=== PATIENT | male | born 1965 | race Caucasian/White ===

== ENCOUNTER 2016-02-29 20:01 | Emergency (ER) | payer SELFPAY ==
[~2016-02-29] VITALS: Ht 188 cm; Wt 136.1 kg
[~2016-02-29 20:01] MED LIST: DOCU-143 PO; LISI10TA2 PO; MORPHINE; POLY119P5 PO; SILD100T PO; TEST200V21 IM
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
[2016-02-29] MEDS ORDERED: TETANUS,DIPTH,PERTUSS P/F (BOOSTRIX) 0.5 ML VIAL IM ONE (20:15)
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
[2016-02-29 20:27] LABS: BASOPHILS % (AUTO) 0 % (0-10); EOSINOPHILS # (AUTO) 0.3 10^3/uL (0.0-0.3); EOSINOPHILS % (AUTO) 3 % (0-10); LYMPHOCYTES # (AUTO) 3.4 X 10^3 (1.0-4.0); LYMPHOCYTES % (AUTO) 29 % (12-44); MEAN CORPUSCULAR HEMOGLOBIN 30 PG (25-34); MEAN CORPUSCULAR HGB CONC 35 G/DL (32-36); MEAN CORPUSCULAR VOLUME 86 FL (80-99); MEAN PLATELET VOLUME 8.9 FL (7.4-10.4); MONOCYTES # (AUTO) 0.7 X 10^3 (0.0-1.0); MONOCYTES % (AUTO) 6 % (0-12); NEUTROPHILS # (AUTO) 7.4 X 10^3 (1.8-7.8); NEUTROPHILS % (AUTO) 63 % (42-75); PLATELET COUNT 331 10^3/uL (130-400); RED BLOOD COUNT 4.83 10^6/uL (4.35-5.85); RED CELL DISTRIBUTION WIDTH 13.9 % (10.0-14.5); WHITE BLOOD COUNT 11.8 10^3/uL (4.3-11.0)
[2016-02-29] MEDS ORDERED: GABA-488 PO (20:27)
[2016-02-29] MEDS ORDERED: METF500T8 PO (20:27)
[2016-02-29] MEDS ORDERED: DICL75TA2 PO (20:27)
[2016-02-29 20:37] LABS: INR 0.9 (0.8-1.4); PROTHROMBIN TIME PATIENT 12.1 SEC (12.2-14.7)
[2016-02-29 20:46] LABS: ALANINE AMINOTRANSFERASE 31 U/L (0-55); ALBUMIN 4.1 G/DL (3.2-4.5); AMYLASE 39 U/L (25-125); ANION GAP 11 MMOL/L (5-14); ASPARTATE AMINO TRANSFERASE 18 U/L (5-34); BILIRUBIN,TOTAL 0.2 MG/DL (0.1-1.0); BLOOD UREA NITROGEN 18 MG/DL (7-18); BUN/CREATININE RATIO 17; CALCIUM 8.9 MG/DL (8.5-10.1); CARBON DIOXIDE 22 MMOL/L (21-32); CHLORIDE 107 MMOL/L (98-107); CREATININE SERUM 1.04 MG/DL (0.60-1.30); GFR ESTIMATED > 60; GLUCOSE 104 MG/DL (70-105); LIPASE 27 U/L (8-78); POTASSIUM 4.1 MMOL/L (3.6-5.0); SODIUM 140 MMOL/L (135-145); TOTAL PROTEIN 6.7 G/DL (6.4-8.2)
[2016-02-29 20:49] LABS: ALCOHOL < 10 MG/DL (<10)
[2016-02-29 20:52] LABS: TROPONIN I < 0.30 NG/ML (<0.30)
[2016-02-29] MEDS ORDERED: IOHEXOL 350 MG/ML 100 ML (OMNIPAQUE 350) VIAL IV ONE (21:00)
[2016-02-29] MEDS ORDERED: NS 100 ML (IVPB) BAG IV ONE (21:00)
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
[2016-02-29 21:18] LABS: BILIRUBIN,URINE NEGATIVE (NEGATIVE); KETONES,URINE NEGATIVE (NEGATIVE); LEUKOCYTE ESTERASE ,URINE 1+ (NEGATIVE); NITRITE,URINE NEGATIVE (NEGATIVE); PH,URINE 5 (5-9); PROTEIN,URINE 1+ (NEGATIVE); UROBILINOGEN,URINE NORMAL (NORMAL)
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
[2016-02-29] MEDS ORDERED: LIDOCAINE/EPI 1%-1:100,000 (XYLOCAINE) 20ML ONE (22:01)
[2016-02-29] MEDS ORDERED: RX-TRIMETH/SULFA. 160-800 MG (BACTRIM DS) TAB PPK#2 PO STA ×2 (22:07→22:21)
[2016-02-29] MEDS ORDERED: RX-NAPROXEN (NAPROSYN) 250 MG TAB PPK#4 PO STA (22:21)
[2016-02-29] MEDS ORDERED: SULF1TAB35 PO (22:24)
[2016-02-29] MEDS ORDERED: NAPR500T3 PO (22:24)
[2016-02-29 22:40] VITALS: BP 128/82
== END 2016-02-29 22:40 | disposition home or self-care (01) ==
LOC: EDUNIT# 20:01 → ER 20:03
DX: S21.111A Laceration without foreign body of right front wall of thorax without penetration into thoracic cavity, initial encounter (principal); Z23 Encounter for immunization; R91.8 Other nonspecific abnormal finding of lung field; E07.89 Other specified disorders of thyroid; J44.9 Chronic obstructive pulmonary disease, unspecified; I10 Essential (primary) hypertension; E11.9 Type 2 diabetes mellitus without complications; F17.220 Nicotine dependence, chewing tobacco, uncomplicated; Z79.84 Long term (current) use of oral hypoglycemic drugs; Z87.891 Personal history of nicotine dependence; Z79.899 Other long term (current) drug therapy; W26.0XXA Contact with knife, initial encounter; Y99.8 Other external cause status
CPT/HCPCS: 36415; 71010; 71260; 74177; 80053; 80306; 80320; 81000; 82150; 83690; 84484; 85025; 85610; 85730; 90471; 90715; 93005

== ENCOUNTER 2017-05-20 09:29 | Observation (INO) | payer MEDICAID, OTHER ==
[~2017-05-20] VITALS: Ht 190.5 cm; Wt 119.7 kg
[~2017-05-20 09:29] MED LIST changes: +DICL75TA2 PO; +GABA-488 PO; +METF500T8 PO; +NAPR-915 PO; +SULF1TAB35 PO
[2017-05-20] MEDS ORDERED: NS IV 1000 ML 1,000 ML IV ONE (09:34)
[2017-05-20 09:40] LABS: BASOPHILS % (AUTO) 0 % (0-10); EOSINOPHILS # (AUTO) 0.2 10^3/uL (0.0-0.3); EOSINOPHILS % (AUTO) 3 % (0-10); HEMATOCRIT 47 % (40-54); HEMOGLOBIN 16.3 G/DL (13.3-17.7); LYMPHOCYTES # (AUTO) 2.6 X 10^3 (1.0-4.0); LYMPHOCYTES % (AUTO) 28 % (12-44); MEAN CORPUSCULAR HEMOGLOBIN 29 PG (25-34); MEAN CORPUSCULAR HGB CONC 35 G/DL (32-36); MEAN CORPUSCULAR VOLUME 82 FL (80-99); MEAN PLATELET VOLUME 9.1 FL (7.4-10.4); MONOCYTES # (AUTO) 0.7 X 10^3 (0.0-1.0); MONOCYTES % (AUTO) 7 % (0-12); NEUTROPHILS # (AUTO) 5.7 X 10^3 (1.8-7.8); NEUTROPHILS % (AUTO) 62 % (42-75); PLATELET COUNT 293 10^3/uL (130-400); RED CELL DISTRIBUTION WIDTH 14.1 % (10.0-14.5); WHITE BLOOD COUNT 9.2 10^3/uL (4.3-11.0)
[2017-05-20] MEDS ORDERED: ASPIRIN 81 MG CHEW (CHILDREN'S ASA) PO ONE (09:45)
[2017-05-20 09:50] LABS: INR 0.9 (0.8-1.4)
[2017-05-20 09:58] LABS: ALANINE AMINOTRANSFERASE 29 U/L (0-55); ALBUMIN 4.3 GM/DL (3.2-4.5); ALKALINE PHOSPHATASE 63 U/L (40-136); BILIRUBIN,TOTAL 0.5 MG/DL (0.1-1.0); BUN/CREATININE RATIO 15; CARBON DIOXIDE 23 MMOL/L (21-32); CHLORIDE 107 MMOL/L (98-107); CREATININE SERUM 1.01 MG/DL (0.60-1.30); GFR ESTIMATED > 60; GLUCOSE 95 MG/DL (70-105); POTASSIUM 4.2 MMOL/L (3.6-5.0); SODIUM 140 MMOL/L (135-145); TOTAL PROTEIN 7.2 GM/DL (6.4-8.2)
[2017-05-20 10:07] LABS: MYOGLOBIN SERUM 54.6 NG/ML (10.0-92.0)
--- NOTE | 2017-05-20 10:28 | Diagnostic Imaging Report ---
PATIENT HISTORY: Chest pain. TECHNIQUE: Single frontal view of the chest. COMPARISON: 02/29/2016. FINDINGS: The lung volumes are normal. No focal consolidation is seen. No large pleural effusion or pneumothorax is seen. The cardiomediastinal silhouette is normal in size and contour. No acute osseous abnormality is seen. IMPRESSION: No acute pulmonary abnormality seen. Dictated by: Dictated on workstation # [id number]
--- NOTE | 2017-05-20 10:46 | ED Chest Pain ---
General Chief Complaint: Cardiac/General Problems Stated Complaint: CP Nursing Triage Note: PT BROGHT TO ED VIA EMS ACCOMPANIED BY [employer]. PT STATES HE AWOKE THIS MORNING AT APPROXIMATELY 0800 WITH SUBSTERNAL CHEST PAIN. PT STATES HE HAD AN ACHE RADIATING DOWN BOTH SHOULDERS. PT ALSO COMPLAINS OF PAIN UNDER RIGHT BREAST AREA RATED AT 2/10. PT DENIES HX OF HEART PROBLEMS OR CHEST PAIN. Nursing Sepsis Screen: No Definite Risk Source: patient Exam Limitations: no limitations (HARMAN TRENT MD) History of Present Illness Date Seen by Provider: May 20, 2017 Time Seen by Provider: 09:30 Initial Comments Patient here by EMS with report of chest pain that started about 830 and woke him up. EMS arrived at the assisted facility where he is being held and found him to be in SVT with rate of 180. In route to the hospital, patient had spontaneous resolution of SVT. Complained of chest pain that is low and lateral bilateral and this still continues. States that is very mild. Denies nausea, vomiting, diaphoresis or weakness. Timing/Duration: 1 hour Severity/Quality: moderate Location: central Radiation: no radiation Activities at Onset: none ASA po STEAM LOCOMOTIVE FIRER/FIREMAN: No NTG SL STEAM LOCOMOTIVE FIRER/FIREMAN: No Associated Symptoms: No abdominal pain, No back pain, No dizziness, No fatigue , No fever/chills, No nausea/vomiting, No shortness of breath, No weakness ( HARMAN TRENT MD) Allergies and Home Medications Allergies Coded Allergies: NKANo Known Allergies (Unverified Allergy, Mild, 04/27/09) Home Medications Diclofenac Sodium 75 Mg Tablet.dr, 75 MG PO DAILY, (Reported) Gabapentin 300 Mg Capsule, 300 MG PO TID, (Reported) Lisinopril 10 Mg Tablet, 10 MG PO DAILY, (Reported) Metformin HCl 500 Mg Tab.er.24h, 1,000 MG PO BID, (Reported) Naproxen 500 Mg Tablet, 500 MG PO BID Prescribed by: JANNETTE HARDY on 02/29/162223 Sildenafil Citrate 100 Mg Tablet, 100 MG PO for OTHER, (Reported) Sulfamethoxazole/Trimethoprim 1 Each Tablet, 1 EACH PO BID Prescribed by: JANNETTE HARDY on 02/29/162223 Testosterone Cypionate 200 Mg/1 Ml Vial, 200 MG IM MONTHLY, (Reported) Patient Home Medication List Home Medication List Reviewed: Yes (HARMAN TRENT MD) Review of Systems Constitutional: see HPI; No chills, No fever EENTM: No Symptoms Reported Respiratory: No Symptoms Reported Cardiovascular: See HPI, Chest Pain, Irregular Heart Rate Gastrointestinal: No Symptoms Reported; Denies Nausea, Denies Vomiting Genitourinary: No Symptoms Reported Musculoskeletal: no symptoms reported (HARMAN TRENT MD) All Other Systems Reviewed Negative Unless Noted: Yes (HARMAN TRENT MD) Past Imzslvj-Wlyffv-Lpwxja Hx Past Med/Social Hx: Reviewed Nursing Past Med/Soc Hx (HARMAN TRENT MD) Patient Social History Alcohol Use: Rarely Uses Recreational Drug Use: Yes (METH PAST, MARIJUANA) Smoking Status: Current Everyday Smoker Type Used: Cigarettes, Smokeless Tobacco Recent Foreign Travel: No Contact w/Someone Who Travel: No Recent Infectious Disease Expo: No Recent Hopitalizations: No Physical Abuse: No Sexual Abuse: No (HARMAN TRENT MD) Immunizations Up To Date Tetanus Booster (TDap): More than 5yrs (HARMAN TRENT MD) Seasonal Allergies Seasonal Allergies: No (HARMAN TRENT MD) Past Medical History Surgeries: Yes Appendectomy, Tonsillectomy Respiratory: Yes (BEGINNING OF COPD/ ASTHMA CHILD) Asthma, COPD Cardiac: Yes High Cholesterol, Hypertension Neurological: Yes (NEUROPATHY IN FEET) Neuropathy Gastrointestinal: No Musculoskeletal: Yes (CHRONIC BACK PAIN / "JAW PAIN AND POPPING") Chronic Back Pain Endocrine: Yes (05/19/17 PT STATES "PREDIABETIC") Diabetes, Insulin dep Tonsilitis Cancer: No Psychosocial: Yes Anxiety, Depression Nursing Suicide Risk Score: 0 Integumentary: No Blood Disorders: No (HARMAN TRENT MD) Family Medical History Reviewed Nursing Family Hx (HARMAN TRENT MD) No Pertinent Family Hx (HARMAN TRENT MD) Physical Exam Vital Signs Vital Signs - First Documented 05/20/17 09:30 Pulse 88 Resp 16 B/P (MAP) 146/95 (112) O2 Delivery Room Air (ALEXUS TRISTAN MD) Vital Signs Capillary Refill : Less Than 3 Seconds (HARMAN TRENT MD) General Appearance: No Apparent Distress, WD/WN HEENT: PERRL/EOMI, Pharynx Normal Neck: Non Tender, Supple Respiratory: Lungs Clear, Normal Breath Sounds Cardiovascular: Regular Rate, Rhythm, No Murmur Gastrointestinal: Non Tender, Soft Extremity: Normal Range of Motion, Non Tender Neurologic/Psychiatric: Alert, Oriented x3 Skin: Normal Color, Warm/Dry (HARMAN TRENT MD) Progress/Results/Core Measures Lab Results Laboratory Tests Test 05/20/17 09:30 Range/Units White Blood Count 9.2 4.3-11.0 10^3/uL Red Blood Count 5.70 4.35-5.85 10^6/uL Hemoglobin 16.3 13.3-17.7 G/DL Hematocrit 47 40-54 % Mean Corpuscular Volume 82 80-99 FL Mean Corpuscular Hemoglobin 29 25-34 PG Mean Corpuscular Hemoglobin Concent 35 32-36 G/DL Red Cell Distribution Width 14.1 10.0-14.5 % Platelet Count 293 130-400 10^3/uL Mean Platelet Volume 9.1 7.4-10.4 FL Neutrophils (%) (Auto) 62 42-75 % Lymphocytes (%) (Auto) 28 12-44 % Monocytes (%) (Auto) 7 0-12 % Eosinophils (%) (Auto) 3 0-10 % Basophils (%) (Auto) 0 0-10 % Neutrophils # (Auto) 5.7 1.8-7.8 X 10^3 Lymphocytes # (Auto) 2.6 1.0-4.0 X 10^3 Monocytes # (Auto) 0.7 0.0-1.0 X 10^3 Eosinophils # (Auto) 0.2 0.0-0.3 10^3/uL Basophils # (Auto) 0.0 0.0-0.1 10^3/uL Prothrombin Time 12.0 L 12.2-14.7 SEC INR Comment 0.9 0.8-1.4 Activated Partial Thromboplast Time 27 24-35 SEC D-Dimer 0.81 H 0.00-0.49 UG/ML Sodium Level 140 135-145 MMOL/L Potassium Level 4.2 3.6-5.0 MMOL/L Chloride Level 107 98-107 MMOL/L Carbon Dioxide Level 23 21-32 MMOL/L Anion Gap 10 5-14 MMOL/L Blood Urea Nitrogen 15 7-18 MG/DL Creatinine 1.01 0.60-1.30 MG/DL Estimat Glomerular Filtration Rate > 60 BUN/Creatinine Ratio 15 Glucose Level 95 70-105 MG/DL Calcium Level 10.0 8.5-10.1 MG/DL Magnesium Level 2.0 1.8-2.4 MG/DL Total Bilirubin 0.5 0.1-1.0 MG/DL Aspartate Amino Transf (AST/SGOT) 17 5-34 U/L Alanine Aminotransferase (ALT/SGPT) 29 0-55 U/L Alkaline Phosphatase 63 40-136 U/L Myoglobin 54.6 10.0-92.0 NG/ML Troponin I < 0.30 <0.30 NG/ML Total Protein 7.2 6.4-8.2 GM/DL Albumin 4.3 3.2-4.5 GM/DL (ALEXUS TRISTAN MD) Medications Given in ED Current Medications Medications Dose Ordered Sig/Reyna Route Start Time Stop Time Status Last Admin Dose Admin Aspirin 324 mg ONCE ONCE PO 05/20/17 09:45 05/20/17 09:46 DC 05/20/17 09:48 324 MG Iohexol 125 ml ONCE ONCE IV 05/20/17 11:00 05/20/17 11:01 DC 05/20/17 10:57 125 ML Sodium Chloride 250 ml ONCE ONCE IV 05/20/17 11:00 05/20/17 11:01 DC 05/20/17 10:57 80 ML Sodium Chloride 1,000 ml @ 0 mls/hr Q0M ONCE IV 05/20/17 09:34 05/20/17 09:36 DC 05/20/17 09:48 1,000 MLS/HR (ALEXUS TRISTAN MD) Vital Signs/I&O 05/20/17 09:30 Pulse 88 Resp 16 B/P (MAP) 146/95 (112) O2 Delivery Room Air (ALEXUS TRISTAN MD) Blood Pressure Mean: 112 Progress Note : Progress Note Seen and evaluated. IV, labs, chest x-ray and EKG ordered. ASA 324 mg by mouth ordered. Normal saline 1 L bolus ordered. Monitor patient. 1040: D- dimer is elevated. CT angiogram of the chest ordered. Patient is currently pain-free. Monitor patient. (HARMAN TRENT MD) Initial ECG Impression Date: May 20, 2017 Initial ECG Impression Time: 09:28 Initial ECG Rate: 86 Initial ECG Rhythm: Normal Sinus Initial ECG Intervals: Normal Comment Sinus rhythm with leftward axis. No evidence of ST elevation PR. Similar to previous of 29 February 2016 except axis has changed to more leftward currently. Interpreted by me. (HARMAN TRENT MD) Diagonstic Imaging: Xray Plain Films/CT/US/NM/MRI: chest Comments [place] NAME: ROCÍO ARMSTRONG [facility] REC#: [id number] PT STATUS: REG ER : 1965 PHYSICIAN: HARMAN TRENT MD ADMIT DATE: 05/20/17/ER Draft Date of Exam:05/20/17 CHEST 1 VIEW, AP/PA ONLY PATIENT HISTORY: Chest pain. TECHNIQUE: Single frontal view of the chest. COMPARISON: 02/29/2016. FINDINGS: The lung volumes are normal. No focal consolidation is seen. No large pleural effusion or pneumothorax is seen. The cardiomediastinal silhouette is normal in size and contour. No acute osseous abnormality is seen. IMPRESSION: No acute pulmonary abnormality seen. Dictated on workstation # [id number] Dict: 05/20/17 1023 Trans: 05/20/17 1028 [id number] Interpreted by: PRESLEY POLANCO MD Electronically signed by: (HARMAN TRENT MD) Departure Communication (Admissions) [address] Ventura from [facility]. The patient will be admitted observation. He is in a regular sinus rhythm at this point and the CT scan was negative for PE. BERTRAND Mckeon has been consult (ALEXUS TRISTAN MD) Impression Primary Impression: SVT Disposition: ADMITTED INPATIENT Condition: Stable/Unchanged Admissions Decision to Admit Reason: Admit from ER (General) Decision to Admit/Date: May 20, 2017 Time/Decision to Admit Time: 11:56 (ALEXUS TRISTAN MD) Departure-Patient Inst. Referrals: GIOVANNI MISHRA DO (PCP) Primary Care Physician JOSE HALL APRN (Family) Primary Care Physician HARMAN TRENT MD May 20, 2017 10:46 ALEXUS TRISTAN MD May 20, 2017 11:57
[2017-05-20] MEDS ORDERED: IOHEXOL 350 MG/ML 150 ML (OMNIPAQUE 350) VIAL IV ONE (11:00)
[2017-05-20] MEDS ORDERED: NS 250 ML (IVPB) BAG IV ONE (11:00)
--- NOTE | 2017-05-20 11:28 | Diagnostic Imaging Report ---
PROCEDURE: CT angiography of the chest with contrast. TECHNIQUE: Multiple contiguous axial images were obtained through the chest after uneventful bolus administration of intravenous contrast. Reconstructed CTA MIP acquisitions were also performed. INDICATION: Chest pain, bilateral shoulder pain. COMPARISON: CT chest from 02/29/2016. FINDINGS: The contrast bolus appears diagnostic to the segmental level, although the upper lobes contrast is slightly decreased. No focal filling defects are seen to indicate a pulmonary embolus. The aorta demonstrates minimal atherosclerosis with no acute abnormality. The heart is normal in size. There is no pericardial effusion. There are scattered mediastinal and hilar lymph nodes, with the largest measuring approximately 1.7 x 1.2 cm in the left hilum (image 73 series 2). There is heterogeneity of the left thyroid lobe. No focal consolidation is seen in the lungs bilaterally. No pleural effusion or pneumothorax is seen. There are no central endobronchial lesions. There is a 6 mm subpleural nodule in the superior medial posterior right lower lobe (image 58 series 2), which appears stable since February 2016. There is mild central bronchial wall thickening. No acute osseous abnormality is seen. No acute abnormality is seen in the imaged portions of the upper abdomen. Air is seen in the gallbladder lumen, thought to represent noncalcified gallstones. IMPRESSION: 1. No pulmonary embolus seen. 2. Mild prominence of the mediastinal and hilar lymph nodes, likely reactive. There is mild central bronchial wall thickening, may represent mild bronchitis. 3. Subpleural nodule in the right lower lobe is stable since 02/29/2016 and likely represents a lymph node. 4. Suspected cholelithiasis. Dictated by: Dictated on workstation # [id number]
[2017-05-20] MEDS ORDERED: TRAZ-28 PO (11:37)
[2017-05-20 13:45] VITALS: BP 140/97
[2017-05-20] MEDS ORDERED: LISI-552 PO (14:34)
--- NOTE | 2017-05-20 15:21 | Consultation-Cardiology ---
HPI-Cardiology Cardiology Consultation: Date of Consultation 05/20/17 Time Seen by Provider: 14:45 Date of Admission 05-20-17 Attending Physician Odilia Ventura MD Admitting Physician Sariah Lamas DO Consulting Physician Myra King MD HPI: Chief Complaint: Chest pain SVT Mr. Figueroa is a 52 year old male who has been admitted to ICU 5 from the ED. He reports he was sleeping this morning and woke up suddenly with chest pressure which radiated across his chest and into his arms bilat. He reports the pressure was constant. No aggravating or alleviating factors. He reports SOB at this time as well, but no other associated symptoms. He reports EMS was called to the custodial and he was told his heart rate was fast. He states the chest pressure persisted until he arrived to the ED at which time it gradually resolved. He is currently pain free. He denies any n/v or diaphoresis. No c/ o syncope or near syncope. He reports he did have an episode a few days ago while moving household items where he felt lightheaded and weak. He states he sat down for a few minutes and the symptoms resolved. No c/o CP at that time. He denies any LE edema. He reports he does smoke approx 1 cig per day. He reports occ alcohol consumption. Review of Systems-Cardiology Review of Systems Constitutional: No chills, No fever Eyes: No vision change Ears/Nose/Throat: No epistaxis, No recent hearing loss Respiratory: As described under HPI Cardiovascular: As described under HPI Gastrointestinal: No constipation, No diarrhea, No nausea, No vomiting Genitourinary: No dysuria, No hematuria, No incontinence Musculoskeletal: joint pain (chronic right knee pain) Skin: No rash, No ulcerations Psychiatric/Neurological: No seizure, No focal weakness, No syncope Hematologic: No bleeding abnormalities All Other Systems Reviewed Negative Unless Noted: Yes [id number]-[id number] Hx Patient Social History Alcohol Use: Rarely Uses Recreational Drug Use: Yes (METH PAST, MARIJUANA) Smoking Status: Current Someday Smoker Type Used: Cigarettes, Smokeless Tobacco Recent Foreign Travel: No Recent Infectious Disease Expo: No Hospitalization with Isolation: Denies Physical Abuse Screen: No Sexual Abuse: No Immunizations Up To Date Tetanus Booster (TDap): More than 5yrs Past Medical History PMH As described under Assessment. Family Medical History Family Medical History: He reports his father from complications of diabetes in his late 20's. He reports his mother had lung cancer. Allergies and Home Medications Allergies Coded Allergies: GABEANo Known Allergies (Unverified Allergy, Mild, 04/27/09) Home Medications Lisinopril 20 Mg Tablet, 20 MG PO DAILY, (Reported) LAST FILLED #30 04-03-17 Metformin HCl 500 Mg Tab.er.24h, 500 MG PO BID, (Reported) Sildenafil Citrate 100 Mg Tablet, 100 MG PO UD PRN for ED, (Reported) Trazodone HCl 50 Mg Tablet, 50 MG PO HS, (Reported) Patient Home Medication List Home Medication List Reviewed: Yes Physical Exam-Cardiology Physical Exam Vital Signs/I&O 05/21/17 05/21/17 05/21/17 05/21/17 00:00 00:46 01:00 04:00 Temp 98.6 Pulse 67 63 Resp 18 B/P (MAP) 129/81 (97) Pulse Ox 97 O2 Delivery Room Air Room Air Room Air 05/21/17 05/21/17 07:00 08:49 Temp 98.0 Pulse 73 80 Resp 20 19 B/P (MAP) 161/91 (114) 138/82 (100) Pulse Ox 97 97 O2 Delivery Room Air Room Air 05/21/17 00:00 Intake Total 1070 ml Output Total 1 ml Balance 1069 ml Capillary Refill : Less Than 3 Seconds Constitutional: AAO x 3, well-developed, well-nourished HEENT: PERRL, hearing is well preserved, oral hygience is good; No ulceration, No xanthelasmas are seen Neck: No carotid bruit; carotid pulses are 2 + bilaterally Respiratory: No accessory muscle use, No respiratory distress; chest expansion is symmetric, chest is bilaterally symmetric, lungs clear to auscultation Cardiovascular: regular rate-rhythm; No JVD; S1 and S2 Gastrointestinal: No tender; soft, round, audible bowel sounds Rectal: deferred Extremities: no lower extremity edema bilateral Neurologic/Psychiatric: grossly intact, power is 5/5 both on sides Skin: No rash, No ulcerations Data Review Labs Laboratory Tests 05/20/17 15:35: Troponin I < 0.30 05/20/17 21:40: Troponin I < 0.30 05/21/17 03:35: White Blood Count 10.1, Red Blood Count 5.58, Hemoglobin 15.9, Hematocrit 46, Mean Corpuscular Volume 82, Mean Corpuscular Hemoglobin 29, Mean Corpuscular Hemoglobin Concent 35, Red Cell Distribution Width 13.8, Platelet Count 332, Mean Platelet Volume 9.4, Sodium Level 138, Potassium Level 3.9, Chloride Level 103, Carbon Dioxide Level 23, Anion Gap 12, Blood Urea Nitrogen 15, Creatinine 0.97, Estimat Glomerular Filtration Rate > 60, BUN/Creatinine Ratio 15, Glucose Level 101, Calcium Level 9.8, Magnesium Level 1.9, Total Bilirubin 0.5, Aspartate Amino Transf (AST/SGOT) 16, Alanine Aminotransferase (ALT/SGPT) 25, Alkaline Phosphatase 57, Total Protein 7.3, Albumin 4.4, Triglycerides Level 143 , Cholesterol Level 192, LDL Cholesterol Direct 145H, VLDL Cholesterol 29, HDL Cholesterol 36L, Thyroid Stimulating Hormone (TSH) 3.21 Radiology : 1965 PHYSICIAN: HARMAN TRENT MD ADMIT DATE: 05/20/17/ER Signed Date of Exam: 05/20/17 CT ANGIO CHEST W PROCEDURE: CT angiography of the chest with contrast. TECHNIQUE: Multiple contiguous axial images were obtained through the chest after uneventful bolus administration of intravenous contrast. Reconstructed CTA MIP acquisitions were also performed. INDICATION: Chest pain, bilateral shoulder pain. COMPARISON: CT chest from 02/29/2016. FINDINGS: The contrast bolus appears diagnostic to the segmental level, although the upper lobes contrast is slightly decreased. No focal filling defects are seen to indicate a pulmonary embolus. The aorta demonstrates minimal atherosclerosis with no acute abnormality. The heart is normal in size. There is no pericardial effusion. There are scattered mediastinal and hilar lymph nodes, with the largest measuring approximately 1.7 x 1.2 cm in the left hilum (image 73 series 2). There is heterogeneity of the left thyroid lobe. No focal consolidation is seen in the lungs bilaterally. No pleural effusion or pneumothorax is seen. There are no central endobronchial lesions. There is a 6 mm subpleural nodule in the superior medial posterior right lower lobe (image 58 series 2), which appears stable since February 2016. There is mild central bronchial wall thickening. No acute osseous abnormality is seen. No acute abnormality is seen in the imaged portions of the upper abdomen. Air is seen in the gallbladder lumen, thought to represent noncalcified gallstones. IMPRESSION: 1. No pulmonary embolus seen. 2. Mild prominence of the mediastinal and hilar lymph nodes, likely reactive. There is mild central bronchial wall thickening, may represent mild bronchitis. 3. Subpleural nodule in the right lower lobe is stable since 02/29/2016 and likely represents a lymph node. 4. Suspected cholelithiasis. Dictated by: Dictated on workstation # [id number] Dict: 05/20/17 1116 Trans: 05/20/17 1149 Interpreted by: PRESLEY POLANCO MD Electronically signed by: PRESLEY POLANCO MD 05/20/17 1149 ECG Impression ECG Initial ECG Rhythm: Normal Sinus A/P-Cardiology Assessment/Admission Diagnosis Reported episode of SVT per EMS (rhythm strips not available as of yet) with reported spontaneous conversion to SR Chest pressure with radiation into bilat shoulders of undetermined etiology HTN HLD DM 2 H/O drug abuse approx 20 year ago per pt Tobaccoism (reports approx 1 cig per day) Cholelithiasis per CT on 05-20-[address] of the chest on 05-20-17 Symptoms suggestive of sleep apnea Clinical Quality Measures AMI/AHF: ASA po Prior to arrival: No DVT/VTE Risk/Contraindication: Risk Factor Score Per Nursin RFS Level Per Nursing on Admit: 2=Moderate JEANNETTE SOL May 20, 2017 15:21
[2017-05-20] MEDS ORDERED: lisINopril 20 MG (PRINIVIL) TABLET PO NR (15:30)
[2017-05-20] MEDS ORDERED: meTOprolol SUCCINATE 100 MG (TOPROL XL) TAB PO NR (16:15)
--- NOTE | 2017-05-20 17:50 | Consultation-Cardiology ---
HPI-Cardiology Cardiology Consultation: Date of Consultation 05/20/17 Time Seen by Provider: 17:00 Date of Admission Attending Physician Odilia Ventura MD Admitting Physician Sariah Lamas DO Consulting Physician BERTRAND ALEJANDRE MD, MA, FACP, FACC, FSCAI, CCDS HPI: Chief Complaint: CC: Chest pain Mr. Figueroa is a 52 year old male who has been admitted to ICU 5 from the ED. He reports he was sleeping this morning and woke up suddenly with chest pressure which radiated across his chest and into his arms bilat. He reports the pressure was constant. No aggravating or alleviating factors. He reports SOB at this time as well, but no other associated symptoms. He reports EMS was called to the care home and he was told his heart rate was fast. He states the chest pressure persisted until he arrived to the ED at which time it gradually resolved. He is currently pain free. He denies any n/v or diaphoresis. No c/ o syncope or near syncope. He reports he did have an episode a few days ago while moving household items where he felt lightheaded and weak. He states he sat down for a few minutes and the symptoms resolved. No c/o CP at that time. He denies any LE edema. He reports he does smoke approx 1 cig per day. He reports occ alcohol consumption. Review of Systems-Cardiology Review of Systems Constitutional: No chills, No fever, No weight loss Eyes: No vision change Ears/Nose/Throat: No epistaxis, No recent hearing loss Respiratory: As described under HPI Cardiovascular: As described under HPI Gastrointestinal: No constipation, No diarrhea, No nausea, No vomiting Genitourinary: No dysuria, No hematuria, No incontinence Musculoskeletal: joint pain Skin: No rash, No ulcerations Psychiatric/Neurological: No seizure, No focal weakness, No syncope Hematologic: No bleeding abnormalities All Other Systems Reviewed Negative Unless Noted: Yes NJO-Beozdb-Hnldir Hx Patient Social History Alcohol Use: Rarely Uses Recreational Drug Use: Yes (METH PAST, MARIJUANA) Smoking Status: Current Someday Smoker Type Used: Cigarettes, Smokeless Tobacco Recent Foreign Travel: No Recent Infectious Disease Expo: No Hospitalization with Isolation: Denies Physical Abuse Screen: No Sexual Abuse: No Immunizations Up To Date Tetanus Booster (TDap): More than 5yrs Past Medical History PMH As described under Assessment. Family Medical History Family Medical History: He reports his father from complications of diabetes in his late 20's. He reports his mother had lung cancer. Allergies and Home Medications Allergies Coded Allergies: GABEANo Known Allergies (Unverified Allergy, Mild, 04/27/09) Home Medications Lisinopril 20 Mg Tablet, 20 MG PO DAILY, (Reported) LAST FILLED #30 04-03-17 Metformin HCl 500 Mg Tab.er.24h, 500 MG PO BID, (Reported) Sildenafil Citrate 100 Mg Tablet, 100 MG PO UD PRN for ED, (Reported) Trazodone HCl 50 Mg Tablet, 50 MG PO HS, (Reported) Patient Home Medication List Home Medication List Reviewed: Yes Physical Exam-Cardiology Physical Exam Vital Signs/I&O 05/20/17 05/20/17 05/20/17 05/20/17 09:30 13:30 13:39 13:45 Temp 98.4 Pulse 88 96 87 Resp 16 14 B/P (MAP) 146/95 (112) 100/94 Pulse Ox 97 O2 Delivery Room Air Room Air Room Air 05/20/17 05/20/17 05/20/17 13:45 16:00 16:37 Temp 96.4 98.9 Pulse 85 72 Resp 16 18 B/P (MAP) 140/97 (111) Pulse Ox 98 100 O2 Delivery Room Air Simple Mask Room Air Capillary Refill : Less Than 3 Seconds Constitutional: AAO x 3, well-developed, well-nourished HEENT: PERRL, hearing is well preserved, oral hygience is good Neck: carotid pulses are 2 + bilaterally Respiratory: chest expansion is symmetric, chest is bilaterally symmetric, lungs clear to auscultation Cardiovascular: regular rate-rhythm, S1 and S2 Gastrointestinal: soft, round, audible bowel sounds Rectal: deferred Extremities: no lower extremity edema bilateral Neurologic/Psychiatric: grossly intact, power is 5/5 both on sides Skin: No rash, No ulcerations Data Review Labs Laboratory Tests 05/20/17 09:30: White Blood Count 9.2, Red Blood Count 5.70, Hemoglobin 16.3, Hematocrit 47, Mean Corpuscular Volume 82, Mean Corpuscular Hemoglobin 29, Mean Corpuscular Hemoglobin Concent 35, Red Cell Distribution Width 14.1, Platelet Count 293, Mean Platelet Volume 9.1, Neutrophils (%) (Auto) 62, Lymphocytes (%) (Auto) 28, Monocytes (%) (Auto) 7, Eosinophils (%) (Auto) 3, Basophils (%) (Auto) 0, Neutrophils # (Auto) 5.7, Lymphocytes # (Auto) 2.6, Monocytes # (Auto) 0.7, Eosinophils # (Auto) 0.2, Basophils # (Auto) 0.0, Prothrombin Time 12.0L, INR Comment 0.9, Activated Partial Thromboplast Time 27, D-Dimer 0.81H, Sodium Level 140, Potassium Level 4.2, Chloride Level 107, Carbon Dioxide Level 23, Anion Gap 10, Blood Urea Nitrogen 15, Creatinine 1.01, Estimat Glomerular Filtration Rate > 60, BUN/Creatinine Ratio 15, Glucose Level 95, Calcium Level 10.0, Magnesium Level 2.0, Total Bilirubin 0.5, Aspartate Amino Transf (AST/SGOT ) 17, Alanine Aminotransferase (ALT/SGPT) 29, Alkaline Phosphatase 63, Myoglobin 54.6, Troponin I < 0.30, Total Protein 7.2, Albumin 4.3 05/20/17 15:35: Troponin I < 0.30 Laboratory Tests 05/20/17 09:30 A/P-Cardiology Assessment/Admission Diagnosis PSVT, 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, first documented on 05/20/17 Chest pressure with radiation into bilat shoulders of undetermined etiology, resolved with the resolution of SVT to NSR HTN HLD DM 2 H/O drug abuse approx 20 year ago per pt Tobaccoism (reports approx 1 cig per day) Cholelithiasis per CT on 05-20-[address] of the chest on 05-20-17 Symptoms suggestive of sleep apnea Discussion and Recomendations * Treat with bb and asa * Monitor labs * Echo to eval for structural heart disease * MPI to eval for CAD * Advised smoking cessation and wgt loss * I spoke with him in detail and answered questions Clinical Quality Measures AMI/AHF: ASA po Prior to arrival: No DVT/VTE Risk/Contraindication: Risk Factor Score Per Nursin RFS Level Per Nursing on Admit: 2=Moderate BERTRAND ALEJANDRE MD FACP FAC CCDS May 20, 2017 17:50
[2017-05-20 19:37] VITALS: BP 166/101
[2017-05-20 20:59] VITALS: BP 143/106
[2017-05-21 00:46] VITALS: BP 129/81
[2017-05-21 04:38] LABS: HEMOGLOBIN 15.9 G/DL (13.3-17.7); MEAN PLATELET VOLUME 9.4 FL (7.4-10.4); RED BLOOD COUNT 5.58 10^6/uL (4.35-5.85); RED CELL DISTRIBUTION WIDTH 13.8 % (10.0-14.5); WHITE BLOOD COUNT 10.1 10^3/uL (4.3-11.0)
[2017-05-21 04:58] LABS: ALANINE AMINOTRANSFERASE 25 U/L (0-55); ALBUMIN 4.4 GM/DL (3.2-4.5); ALKALINE PHOSPHATASE 57 U/L (40-136); BILIRUBIN,TOTAL 0.5 MG/DL (0.1-1.0); BUN/CREATININE RATIO 15; CALCIUM 9.8 MG/DL (8.5-10.1); CARBON DIOXIDE 23 MMOL/L (21-32); CHLORIDE 103 MMOL/L (98-107); CHOLESTEROL 192 MG/DL (< 200); CREATININE SERUM 0.97 MG/DL (0.60-1.30); GFR ESTIMATED > 60; GLUCOSE 101 MG/DL (70-105); HDL CHOLESTEROL 36 MG/DL (40-60); MAGNESIUM 1.9 MG/DL (1.8-2.4); POTASSIUM 3.9 MMOL/L (3.6-5.0); SODIUM 138 MMOL/L (135-145); TOTAL PROTEIN 7.3 GM/DL (6.4-8.2); TRIGLYCERIDES 143 MG/DL (<150); VLDL CHOLESTEROL 29 MG/DL (5-40)
[2017-05-21 07:00] VITALS: BP 161/91
[2017-05-21] MEDS ORDERED: CATHETER FLUSH 10 ML SYR IV PRN (07:30)
[2017-05-21] MEDS ORDERED: REGADENOSON 0.4 MG/5 ML SYR (LEXISCAN) IV ONE ×2 (08:16→09:00)
[2017-05-21 08:49] VITALS: BP 138/82
[2017-05-21] MEDS ORDERED: lisINopril 20 MG (PRINIVIL) TABLET PO SCH (09:00)
[2017-05-21] MEDS ORDERED: ASPIRIN 81 MG CHEW (CHILDREN'S ASA) PO SCH (09:00)
[2017-05-21] MEDS ORDERED: meTOprolol SUCCINATE 100 MG (TOPROL XL) TAB PO SCH (09:00)
--- NOTE | 2017-05-21 09:42 | Progress Note-Cardiology ---
Cardiology SOAP Progress Note Subjective: Reports no c/o palpitations. Reports a few episodes during the night of mild chest pressure which only lasted for a few seconds/minutes, but he did not report those episodes to the nursing staff. No c/o CP currently. No c/o dyspnea, palpitations, syncope or near syncope. Objective: I&O/Vital Signs 05/21/17 05/21/17 05/21/17 05/21/17 00:00 00:46 01:00 04:00 Temp 98.6 Pulse 67 63 Resp 18 B/P (MAP) 129/81 (97) Pulse Ox 97 O2 Delivery Room Air Room Air Room Air 05/21/17 05/21/17 05/21/17 05/21/17 07:00 07:00 08:49 10:00 Temp 98.0 Pulse 76 73 80 Resp 20 19 B/P (MAP) 161/91 (114) 138/82 (100) Pulse Ox 97 97 O2 Delivery Room Air Room Air Room Air 05/21/17 10:15 Temp 97.4 Pulse 81 Resp 18 B/P (MAP) 148/96 (113) Pulse Ox 97 O2 Delivery Room Air 05/21/17 00:00 Intake Total 1070 ml Output Total 1 ml Balance 1069 ml Weight (Pounds): 264 Weight (Ounces): 2.0 Weight (Calculated Kilograms): 119.720622 Constitutional: AAO x 3, well-developed, well-nourished Respiratory: chest expansion is symmetric, chest is bilaterally symmetric, lungs clear to auscultation Cardiovascular: regular rate-rhythm, S1 and S2 Gastrointestional: soft, round, audible bowel sounds Extremities: no lower extremity edema bilateral Neurologic/Psychiatric: grossly intact, power is 5/5 both on sides Skin: No rash, No ulcerations Results/Procedures: Labs Laboratory Tests 05/20/17 15:35: Troponin I < 0.30 05/20/17 21:40: Troponin I < 0.30 05/21/17 03:35: White Blood Count 10.1, Red Blood Count 5.58, Hemoglobin 15.9, Hematocrit 46, Mean Corpuscular Volume 82, Mean Corpuscular Hemoglobin 29, Mean Corpuscular Hemoglobin Concent 35, Red Cell Distribution Width 13.8, Platelet Count 332, Mean Platelet Volume 9.4, Sodium Level 138, Potassium Level 3.9, Chloride Level 103, Carbon Dioxide Level 23, Anion Gap 12, Blood Urea Nitrogen 15, Creatinine 0.97, Estimat Glomerular Filtration Rate > 60, BUN/Creatinine Ratio 15, Glucose Level 101, Calcium Level 9.8, Magnesium Level 1.9, Total Bilirubin 0.5, Aspartate Amino Transf (AST/SGOT) 16, Alanine Aminotransferase (ALT/SGPT) 25, Alkaline Phosphatase 57, Total Protein 7.3, Albumin 4.4, Triglycerides Level 143 , Cholesterol Level 192, LDL Cholesterol Direct 145H, VLDL Cholesterol 29, HDL Cholesterol 36L, Thyroid Stimulating Hormone (TSH) 3.21 A/P: Assessment: PSVT, 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 Currently NSR Chest pressure with radiation into bilat shoulders of undetermined etiology, resolved with the resolution of SVT to NSR MPI of 05/21/17: no ischemia or infarction; LVEF 66% HTN, not well controlled HLD DM 2 H/o drug abuse approx 20 year ago per pt Tobaccoism (reports approx 1 cig per day) Cholelithiasis per CT on 05-20-[address] of the chest on 05-20-17 Symptoms suggestive of sleep apnea TSH normal (3.21) on 05/21/17 Plan: * Treat with bb and asa * Monitor labs * Echo to eval for structural heart disease - pending * MPI to eval for CAD - pending * Advised smoking cessation and wgt loss * I spoke with him in detail and answered questions * Further rec based on the aforementioned testing * TSH 3.21 on lab of 05-21-17 Physician Assessment Physician Assessment Feels well today. States has had no recurrence of symptoms that he presented with Lungs: clear Cor: reg Ext: no c/c/e A&R * As documented in our note above that I updated at the time of this writing ( italics) and as noted below * We discussed his CV w/u so far. Normal LVEF. No evidence of ACS * Given SVT (prob AVNRT) and hypertension that is not well controlled, it appears appropriate to increase bb that were added to the regimen yesterday. IVANA -inhib has been d/c'd\ * Sleep studies are advised. He states he will pursue with his pcp * We have advised avoidance of tobacco use and efforts at wgt loss * Outpatient f/u is advised Clinical Quality Measures AMI/AHF: ASA po Prior to arrival: JEANNETTE Sinha WORK ADJUSTMENT INSTRUCTOR May 21, 2017 09:42 BERTRAND ALEJANDRE MD [facility] May 21, 2017 11:52
[2017-05-21 10:15] VITALS: BP 148/96
--- OUTSIDE RECORDS SUMMARY | 2017-05-21 10:24 | XMS REPORT | Clinical Summary ---
Author Author [facility] Organization [facility] Address Unknown Phone Unavailable Care Team Providers Care Lead Teacher Name Role Phone Self, Referral PCP Unavailable Juan A Klein MD Unavailable Source Comments Some departments are not documenting in the electronic medical record. If you do not see the information that you expected, contact Release of Information in the Health Information Management department at [phone] for further assistance in locating additional records.[facility] Allergies No Known Allergies Current Medications Prescription Sig. [...] Previously Given Next Due DT Vaccine 04/08/2009 Family History Medical History Relation Name Comments Diabetes Father Asthma Maternal Grandmother Relation Name Status Comments Father Maternal Grandmother Social History Tobacco Use Types Packs/Day Years Used Date Current Every Day Smoker Cigarettes 1 15 Alcohol Use Drinks/Week oz/Week Comments No Sex Assigned at Date Recorded Not on file Last Filed Vital Signs Vital Sign Reading Time Taken Blood Pressure 147/92 04/23/2009 12:00 PM CDT Pulse 97 04/23/2009 12:00 PM CDT Temperature 36.7 C (98.1 F) 04/23/2009 12:00 PM CDT Respiratory Rate - - Oxygen Saturation 98% 04/23/2009 12:00 PM CDT Inhaled Oxygen - - Concentration Weight 125.1 kg (275 lb 12.7 oz) 04/23/2009 10:00 AM CDT Height 185.4 cm (6' 0.99") 04/16/2009 1:30 PM SENIOR SUPPORT ENGINEER Body Mass Index 36.39 04/23/2009 10:00 AM CDT Plan of Treatment Health Maintenance Due Date Last Done Comments HEPATITIS C SCREENING 1965 PHYSICAL (COMPREHENSIVE) 02/03/1972 EXAM PERTUSSIS VACCINE 02/03/1976 HIV SCREENING 02/03/1980 COLORECTAL CANCER 2015 SCREENING INFLUENZA VACCINE 11/09/2017 TETANUS VACCINE 04/08/2019 04/08/2009 Results Not on filefrom Last 3 Months
--- OUTSIDE RECORDS SUMMARY | 2017-05-21 10:24 | XMS REPORT | Continuity of Care Document ---
Author Author [employer] Organization [facility] Address Unknown Phone Unavailable Care Team Providers Care Privacy Attorney Name Role Phone [employer] Unavailable Unavailable Problems Medications Allergies, Adverse Reactions, Alerts Immunizations Results Vital Signs Encounters Location Location Details Encounter Type Encounter Number Reason For Visit Attending Provider ADM Date DC Date Status Source O [id number] MARCELINA RAMONE 05/21/2009 05/21/2009 Active [facility] Procedures Plan of Care Social History Assessment and Plan Family History Advance Directives Functional Status
--- OUTSIDE RECORDS SUMMARY | 2017-05-21 10:24 | XMS REPORT ---
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 70155756 Problem Moderate episode of recurrent major depressive disorder F33.1 Active 869590456 Problem Anxiety associated with depression F41.8 Active 225551662 Problem Hallux rigidus of right foot M20.21 Active 829294465 Problem DM neuro manif type II E11.49 Active 48352238 Problem 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 455764692 Problem Lumbago M54.5 Active 710121868 Problem Male erectile dysfunction, unspecified N52.9 Active 565414608 Problem Essential hypertension I10 Active 62779095 Problem Weight gain R63.5 Active 1005925 Problem Encounter to establish care Z76.89 Active 135512620 Problem Family history of diabetes mellitus Z83.3 Active 635492971 Problem Neuropathy G62.9 Active 875358433 ALLERGIES Unknown Allergies SOCIAL HISTORY No smoking Hx information available PLAN OF CARE Activity Details Follow Up 2 Weeks Reason:Depression, anxiety VITAL SIGNS MEDICATIONS Unknown Medications RESULTS No Results PROCEDURES Procedure Date Ordered Related Diagnosis Body Site Psychotherapy, patient &/family, 30 minutes, established patient Jan 23, 2016 IMMUNIZATIONS No Known Immunizations
--- OUTSIDE RECORDS SUMMARY | 2017-05-21 10:24 | XMS REPORT ---
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 61352047 Problem Moderate episode of recurrent major depressive disorder F33.1 Active 444439737 Problem Anxiety associated with depression F41.8 Active 602657268 Problem Hallux rigidus of right foot M20.21 Active 556064234 Problem DM neuro manif type II E11.49 Active 44738243 Problem 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 877601044 Problem Lumbago M54.5 Active 112971840 Problem Male erectile dysfunction, unspecified N52.9 Active 536595329 Problem Essential hypertension I10 Active 96115521 Problem Weight gain R63.5 Active 3744113 Problem Encounter to establish care Z76.89 Active 444172809 Problem Family history of diabetes mellitus Z83.3 Active 850159375 Problem Neuropathy G62.9 Active 674288378 ALLERGIES Unknown Allergies SOCIAL HISTORY No smoking Hx information available PLAN OF CARE Activity Details Follow Up prn Reason: VITAL SIGNS MEDICATIONS Unknown Medications RESULTS No Results PROCEDURES Procedure Date Ordered Related Diagnosis Body Site JOINT INJECTION-LARGE JOINT 2016-01-24 N/A DRAIN/INJECT, JOINT/BURSA Jan 24, 2016 DEPO MEDROL 80 MG/ML Jan 24, 2016 Office Visit, Est Pt., Level 3 Jan 24, 2016 IMMUNIZATIONS No Known Immunizations
--- OUTSIDE RECORDS SUMMARY | 2017-05-21 10:24 | XMS REPORT ---
Author Author KALPESH ARTEAGA [facility] [employer] Address Unknown Phone Unavailable Care Team Providers Care Wireless Operator Name Role Phone KALPESH ARTEAGA CP Unavailable Allergies, Adverse Reactions, Alerts Substance Reaction Event Type N.K.D.A. 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 Problem Weight gain R63.5 Active Problem Lumbago M54.5 Active Problem Arthritis M19.90 Active Problem Neuropathy G62.9 Active Problem Hyperinsulinemia E16.1 Active Problem Male erectile dysfunction, unspecified N52.9 Active Problem Family history of diabetes mellitus Z83.3 Active Problem Encounter to establish care Z76.89 Active Problem Essential hypertension I10 Active Assessment Hyperinsulinemia E16.1 Active Assessment Arthritis M19.90 Active Assessment Neuropathy G62.9 Active Assessment Essential hypertension I10 Active Medications Medication Code System Code Instructions Start Date End Date Status Dosage Gabapentin [facility] [address]-56 400 MG Orally Three times a day as needed for pain Oct 08, 2015 1 capsule Diclofenac Sodium [facility] [address]-69 75 MG Orally bid, pc Oct 08, 2015 1 tablet MetFORMIN HCl ER [facility] [address]-58 500 MG Orally twice a day August 24, 2015 2 tablet Viagra [facility] [address]-43 100 MG Orally Once a day 1 tablet as needed Lisinopril [facility] [address]-14 20 MG Orally Once a day 1 tablet Procedures Procedure Coding System Code Date Office Visit, Est Pt., Level 3 CPT-4 38468 Nov 29, 2015 Vital Signs Date/Time: Nov 29, 2015 Cardiac Monitoring Heart Rate 88 bpm Weight 310 lbs Height 72 in BMI 42.04 Index Blood Pressure Diastolic 96 mmHg Blood Pressure Systolic 150 mmHg Results No Known Results Summary Purpose eClinicalWorks Submission
--- OUTSIDE RECORDS SUMMARY | 2017-05-21 10:24 | XMS REPORT ---
Author Author JOSE HALL [facility] [employer] Address Unknown Phone Unavailable Care Team Providers Care Laborer Golf Course Name Role Phone JOES HALL CP Unavailable Allergies, Adverse Reactions, Alerts Substance Reaction Event Type N.K.D.A. 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 Problem Hypertension I10 Active Problem Lumbago M54.5 Active Assessment Hypogonadism in male E29.1 Active Assessment Routine adult health maintenance Z00.00 Active Medications Medication Code System Code Instructions Start Date End Date Status Dosage Testosterone Cypionate [facility] [address]-43 200 MG/ML Intramuscular monthly July 26, 2014 1 ml Lisinopril [facility] 19194330391 10 MG Orally Once a day 1 tablet Procedures Procedure Coding System Code Date Office Visit, Est Pt., Level 3 CPT-4 32263 Feb 01, 2015 Vital Signs Date/Time: Feb 01, 2015 Temperature 97.3 F Weight 274.6 lbs Height 72 in BMI 37.24 Index Blood Pressure Diastolic 78 mmHg Blood Pressure Systolic 142 mmHg Cardiac Monitoring Heart Rate 80 bpm Results No Known Results Summary Purpose eClinicalWorks Submission
--- OUTSIDE RECORDS SUMMARY | 2017-05-21 10:24 | XMS REPORT ---
Author Author JOSE HALL [facility] [employer] Address Unknown Phone Unavailable Care Team Providers Care Nurse Office Name Role Phone JOSE HALL CP Unavailable Allergies No Known Allergies Problems Problem Type Condition ICD-9 Code Onset Dates Condition Status Problem Rectal pain 569.42 Active Problem Elevated blood pressure reading without diagnosis of hypertension 796.2 Active Problem Hypertension 401.9 Active Problem Blood in stool 578.1 Active Problem Lumbago 724.2 Active Problem Impotence of organic origin 607.84 Active Medications Medication Code System Code Instructions Start Date End Date Status Dosage Lisinopril [facility] [address]-65 10 MG Orally Once a day August 25, 2014 1 tablet Results No Known Results Summary Purpose eClinicalWorks Submission
--- OUTSIDE RECORDS SUMMARY | 2017-05-21 10:25 | XMS REPORT ---
Author Author KALPESH ARTEAGA [facility] e[employer] Address Unknown Phone Unavailable Care Team Providers Care Edger Machine Setter Name Role Phone KALPESH ARTEAGA CP Unavailable Allergies No Known Allergies Problems Problem Type Condition Code Onset Dates Condition Status Assessment Weight gain R63.5 Active Problem Hypertension I10 Active Assessment Family history of diabetes mellitus Z83.3 Active Assessment Essential hypertension I10 Active Problem Essential hypertension I10 Active Problem Male erectile dysfunction, unspecified N52.9 Active Problem Encounter to establish care Z76.89 Active Problem Lumbago M54.5 Active Problem 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
--- OUTSIDE RECORDS SUMMARY | 2017-05-21 10:25 | XMS REPORT ---
Author Author KALPESH ARTEAGA [facility] [employer] Address Unknown Phone Unavailable Care Team Providers Care Lead Retail Sales Associate Name Role Phone KALPESH ARTEAGA CP Unavailable Allergies, Adverse Reactions, Alerts Substance Reaction Event Type N.K.D.A. 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 Problem Family history of diabetes mellitus Z83.3 Active Problem Weight gain R63.5 Active Assessment Weight gain R63.5 Active Assessment Family history of diabetes mellitus Z83.3 Active Assessment Male erectile dysfunction, unspecified N52.9 Active Medications Medication Code System Code Instructions Start Date End Date Status Dosage Lisinopril [facility] [address]-39 10 mg Orally Once a day 1 tablet Viagra [facility] [address]-72 100 MG Orally Once a day 1 tablet as needed Procedures Procedure Coding System Code Date Office Visit, New Pt., Level 3 CPT-4 17854 August 16, 2015 Vital Signs Date/Time: August 16, 2015 Cardiac Monitoring Heart Rate 90 bpm Weight 311 lbs Height 72 in BMI 42.17 Index Blood Pressure Diastolic 100 mmHg Blood Pressure Systolic 150 mmHg Results No Known Results Summary Purpose eClinicalWorks Submission
--- OUTSIDE RECORDS SUMMARY | 2017-05-21 10:25 | XMS REPORT ---
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 [address]-58 300 MG Orally Three times a day Oct 08, 2015 1 capsule Lisinopril [facility] [address]-66 10 mg Orally Once a day 1 tablet MetFORMIN HCl ER [facility] [address]-20 500 MG Orally Once a day August 24, 2015 1 tablet with evening meal Results No Known Results Summary Purpose eClinicalWorks Submission
--- OUTSIDE RECORDS SUMMARY | 2017-05-21 10:25 | XMS REPORT ---
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 36573521 Problem Moderate episode of recurrent major depressive disorder F33.1 Active 922418209 Problem Anxiety associated with depression F41.8 Active 310035165 Problem Hallux rigidus of right foot M20.21 Active 381735624 Problem DM neuro manif type II E11.49 Active 89405956 Problem 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 154759962 Problem Lumbago M54.5 Active 653746005 Problem Family history of diabetes mellitus Z83.3 Active 841575107 Problem Male erectile dysfunction, unspecified N52.9 Active 123216304 Problem Essential hypertension I10 Active 58629160 Problem Encounter to establish care Z76.89 Active 135287026 Problem Weight gain R63.5 Active 3849981 Problem Arthritis M19.90 Active 8798454 ALLERGIES No Information SOCIAL HISTORY Never Assessed PLAN OF CARE VITAL SIGNS MEDICATIONS Medication Instructions Dosage Frequency Start Date End Date Duration Status Viagra 100 MG Orally Once a day 1 tablet as needed 24h 30 days Active RESULTS No Results PROCEDURES No Known procedures IMMUNIZATIONS No Known Immunizations MEDICAL (GENERAL) HISTORY Type Description Date Medical History hypogonadism Medical History back pain Medical History hx of meth abuse Medical History hyperlipidemia Surgical History appy- pt was in 3rd grade Surgical History tonsilectomy age 10 Hospitalization History 3rd degree minor on legs 2009
--- OUTSIDE RECORDS SUMMARY | 2017-05-21 10:25 | XMS REPORT ---
Author Author JÚNIOR LOPEZ Organization eClinicalWorks Address Unknown Phone Unavailable Care Team Providers Care Sewer System Supervisor Name Role Phone JÚINOR LOPEZ Unavailable Allergies No Known Allergies Problems Problem Type Condition Code Onset Dates Condition Status Problem Rectal pain 569.42 Active Problem Elevated blood pressure reading without diagnosis of hypertension 796.2 Active Problem Hypertension 401.9 Active Problem Blood in stool 578.1 Active Assessment Male erectile dysfunction, unspecified N52.9 Active Problem Lumbago 724.2 Active Problem Impotence of organic origin 607.84 Active Medications No Known Medications Procedures Procedure Coding System Code Date THER/PROPH/DIAG INJ, SC/IM CPT-4 23651 Jan 06, 2015 TESTOSTERONE (PT'S OWN) CPT-4 69437 Jan 06, 2015 Results No Known Results Summary Purpose eClinicalWorks Submission
--- OUTSIDE RECORDS SUMMARY | 2017-05-21 10:25 | XMS REPORT ---
Author Author JOSE HALL [facility] eClinicalWorks Address Unknown Phone Unavailable Care Team Providers Care Chef'S Assistant Name Role Phone JOSE HALL CP Unavailable Allergies No Known Allergies Problems Problem Type Condition Code Onset Dates Condition Status Problem Rectal pain 569.42 Active Problem Elevated blood pressure reading without diagnosis of hypertension 796.2 Active Problem Hypertension 401.9 Active Problem Blood in stool 578.1 Active Problem Lumbago 724.2 Active Problem Impotence of organic origin 607.84 Active Medications No Known Medications Results No Known Results Summary Purpose eClinicalWorks Submission
--- OUTSIDE RECORDS SUMMARY | 2017-05-21 10:25 | XMS REPORT ---
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 00798708 Problem Moderate episode of recurrent major depressive disorder F33.1 Active 952182793 Problem Anxiety associated with depression F41.8 Active 100941733 Problem Hallux rigidus of right foot M20.21 Active 647422201 Problem DM neuro manif type II E11.49 Active 91930812 Problem 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 519894692 Problem Lumbago M54.5 Active 885578771 Problem Family history of diabetes mellitus Z83.3 Active 166055385 Problem Male erectile dysfunction, unspecified N52.9 Active 669029903 Problem Essential hypertension I10 Active 94100103 Problem Encounter to establish care Z76.89 Active 505719412 Problem Weight gain R63.5 Active 8091972 Problem Arthritis M19.90 Active 8565638 ALLERGIES No Known Allergies SOCIAL HISTORY Never Assessed PLAN OF CARE Activity Details Follow Up 3 Months Reason:hyperinsulin and fasting labs VITAL SIGNS Height 72 in 2016-04-23 Weight 307.3 lbs 2016-04-23 Temperature 97.6 degrees Fahrenheit 2016-04-23 Heart Rate 80 bpm 2016-04-23 Respiratory Rate 20 2016-04-23 BMI 41.67 kg/m2 2016-04-23 Blood pressure systolic 176 mmHg 2016-04-23 Blood pressure diastolic 110 mmHg 2016-04-23 MEDICATIONS Medication Instructions Dosage Frequency Start Date End Date Duration Status Neurontin 400 mg Orally Three times a day 1 capsule 8h 15 Apr, 2016 30 day(s) Active MetFORMIN HCl ER 750 MG Orally twice a day 1 tablet with evening meal 12h Apr, 90 days Active Lisinopril 20 MG Orally Once a day 1 tablet 24h 90 days Active Duloxetine HCl 60 mg Orally Once a day 1 capsule 24h Jan, Active RESULTS Name Result Date Reference Range Xray : Foot, Left 3 views (IN HOUSE) 2016-04-23 Xray : Foot, Right 3 views (IN HOUSE) 2016-04-23 PROCEDURES Procedure Date Ordered Result Body Site X-RAY EXAM OF FOOT April 23, 2016 IMMUNIZATIONS No Known Immunizations MEDICAL (GENERAL) HISTORY Type Description Date Medical History hypogonadism Medical History back pain Medical History hx of meth abuse Medical History hyperlipidemia Surgical History appy- pt was in 3rd grade Surgical History tonsilectomy age 10 Hospitalization History 3rd degree minor on legs 2009
--- OUTSIDE RECORDS SUMMARY | 2017-05-21 10:25 | XMS REPORT ---
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 03685892 Problem Moderate episode of recurrent major depressive disorder F33.1 Active 121061762 Problem Anxiety associated with depression F41.8 Active 643618521 Problem Hallux rigidus of right foot M20.21 Active 580115398 Problem DM neuro manif type II E11.49 Active 15763057 Problem 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 135343653 Problem Lumbago M54.5 Active 115515070 Problem Family history of diabetes mellitus Z83.3 Active 101905489 Problem Male erectile dysfunction, unspecified N52.9 Active 116706567 Problem Essential hypertension I10 Active 01662703 Problem Encounter to establish care Z76.89 Active 820907787 Problem Weight gain R63.5 Active 2235042 Problem Arthritis M19.90 Active 4690654 ALLERGIES No Information SOCIAL HISTORY Never Assessed PLAN OF CARE VITAL SIGNS MEDICATIONS Medication Instructions Dosage Frequency Start Date End Date Duration Status Neurontin 800 MG Orally Three times a day 0.5 tablet 8h Apr, 108 days Active RESULTS No Results PROCEDURES No Known procedures IMMUNIZATIONS No Known Immunizations MEDICAL (GENERAL) HISTORY Type Description Date Medical History hypogonadism Medical History back pain Medical History hx of meth abuse Medical History hyperlipidemia Surgical History appy- pt was in 3rd grade Surgical History tonsilectomy age 10 Hospitalization History 3rd degree minor on legs 2009
--- OUTSIDE RECORDS SUMMARY | 2017-05-21 10:25 | XMS REPORT ---
Author Author KALPESH ARTEAGA Organization [facility] Address [address] [place] [address] Care Team Providers Care Overhead Crane Inspector Name Role Phone KALPESH ARTEAGA Unavailable PROBLEMS Type Condition ICD9-CM Code YKZ82-UR Code Onset Dates Condition Status SNOMED Code Problem Dysthymia F34.1 Active 33352588 Problem Moderate episode of recurrent major depressive disorder F33.1 Active 669019123 Problem Anxiety associated with depression F41.8 Active 643937011 Problem Hammertoe of right foot M20.41 Active 029948415 Problem Slow transit constipation K59.01 Active 92917232 Problem Hallux rigidus of right foot M20.21 Active 116938817 Problem DM neuro manif type II E11.49 Active 45515544 Problem Adjustment disorder with disturbance of emotion F43.29 Active 84644139 Problem 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 83095689 Problem Encounter to establish care Z76.89 Active 608750001 Problem Weight gain R63.5 Active 6984383 Problem Lumbago M54.5 Active 699846762 Problem Essential hypertension I10 Active 41342694 Problem Neuropathy G62.9 Active 838081937 Problem Family history of diabetes mellitus Z83.3 Active 227889707 Problem Arthritis M19.90 Active 0014299 Problem Male erectile dysfunction, unspecified N52.9 Active 347403035 Problem Hyperinsulinemia E16.1 Active 25045260 ALLERGIES No Known Allergies ENCOUNTERS Encounter Location Date Diagnosis [facility] [id number] [address] Apr, [facility] [id number] [address] Mar, Hallux rigidus of right foot M20.21 [facility] [id number] [address] Mar, Hyperinsulinemia E16.1 ; Essential hypertension I10 ; Male erectile dysfunction, unspecified N52.9 and Neuropathy G62.9 [id number] [place] [address]- [address] Mar, Hammertoe of right foot M20.41 and Neuropathy G62.9 [id number] [place] [address] 29954- 3876 Dec, Traumatic dislocation of right great toe, sequela S93.104S ; Hyperinsulinemia E16.1 ; Essential hypertension I10 ; Male erectile dysfunction, unspecified N52.9 and Neuropathy G62.9 [address] [address] Nov, [id number] [place] [address] 14205- 8338 Nov, Pain of right great toe M79.[address] [id number] Nov, Pain of right great toe M79.674 [id number] [place] [address] 49237- 5380 Nov, [id number] [place] [address] 98545- 7882 Nov, [address] [id number] Nov, Closed nondisplaced fracture of distal phalanx of right great toe with routine healing, subsequent encounter S92.424D ; Slow transit constipation K59.01 and Neuropathic pain M79.2 [id number] [place] [address] 52942- 9203 Sep, Sprain of right great toe, initial encounter S93.501A [id number] [place] [address] 00575- 6593 Sep, Dislocation of phalanx of foot, unspecified laterality, subsequent encounter S93.106D [address] [address] Sep, [id number] [place] [address] 15124- 3322 Sep, Male erectile dysfunction, unspecified N52.9 ; DM neuro manif type II E11.49 ; Essential hypertension I10 ; Dysthymia F34.1 and Subluxation of metatarsophalangeal joint of right great toe, subsequent encounter S93.141D [address] [address] Jul, Right foot pain M79.671 [id number] [place] [address] 23353- 6376 Jul, Adjustment disorder with disturbance of emotion F43.29 and 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 [place] [address] 16336- 3846 Jul, Anxiety associated with depression F41.8 and Moderate episode of recurrent major depressive disorder F33.1 [id number] [place] [address] 21710- 8963 Jul, DM neuro manif type II E11.49 ; Right foot pain M79.671 ; Moderate episode of recurrent major depressive disorder F33.1 ; Essential hypertension I10 and Neuropathy G62.9 [id number] [place] [address] 15401- 3270 June, Hallux rigidus of right foot M20.21 and DM neuro manif type II E11.49 [id number] [place] [address] 38033- 8181 May, Hyperhidrosis L74.519 ; Capsulitis of foot, right M77.51 and DM neuro manif type II E11.49 [id number] [place] [address] 82251- 0177 Apr, Neuropathy G62.9 [id number] [place] [address] 68076- 2998 Apr, Neuropathy G62.9 ; Essential hypertension I10 ; Arthritis M19.90 ; Hyperinsulinemia E16.1 and Moderate episode of recurrent major depressive disorder F33.1 [id number] [place] [address] 02817- 8673 06 Apr, 2016 Male erectile dysfunction, unspecified N52.9 [id number] [place] [address] 08570- 6276 15 Jan, 2016 Osteoarthritis of right knee, unspecified osteoarthritis type M17.11 [address] [address]- [address] 14 Jan, 2016 Dysthymia F34.1 and Anxiety associated with depression F41.8 [address] [address]25- [address] 07 Jan, 2016 Dysthymia F34.1 [address] [address]- [address] 07 Jan, 2016 Essential hypertension I10 ; Neuropathy G62.9 and Dysthymia F34.1 [id number] [place] [address] 02384- 4037 20 Nov, 2015 Essential hypertension I10 ; Neuropathy G62.9 ; Arthritis M19.90 and Hyperinsulinemia E16.1 [id number] [place] [address] 34686- 3597 Nov, Neuropathy G62.9 and Essential hypertension I10 [id number] [place] [address] 92834- 4562 Oct, [id number] [place] [address] 77785- 7182 Sep, Arthritis M19.90 and Neuropathy G62.9 [id number] [place] [address] 62851- 6245 Aug, [id number] [place] [address] 34961- 9161 Aug, Family history of diabetes mellitus Z83.3 ; Weight gain R63.5 and Essential hypertension I10 [facility] [address] [place] [address] 74604- 4380 Aug, Encounter to establish care Z76.89 ; Essential hypertension I10 ; Male erectile dysfunction, unspecified N52.9 ; Family history of diabetes mellitus Z83.3 and Weight gain R63.5 [facility] [id number] [place] [address] 88039- 8711 Jan, Hypogonadism in male E29.1 and Routine adult health maintenance Z00.00 [facility] [id number] [place] [address]20 -4119 Dec, Male erectile dysfunction, unspecified N52.9 [facility] [id number] [place] [address] 40335- 6399 Nov, [address] [id number] [place] [address] 12305- 3816 Oct, Hypertension 401.9 [id number] [place] [address] 01126- 5221 Sep, Hypertension 401.9 and Rectal pain 569.42 [id number] [place] [address] 13436- 9583 Sep, [id number] [place] [address] 92173- 5623 Sep, Impotence of organic origin 607.84 [facility] [id number] [place] [address] 22527- 1859 Aug, Rectal pain 569.42 [address] [id number] [place] [address] 88428- 1816 Aug, Hypertension 401.9 and Rectal pain 569.42 [facility] [id number] [place] [address] 96941- 2833 Jul, Impotence of organic origin 607.84 [id number] [address] Jul, Impotence of organic origin 607.84 ; Blood in stool 578.1 and Elevated blood pressure reading without diagnosis of hypertension 796.2 [facility] [id number] [address] June, Impotence of organic origin 607.84 [facility] [id number] [place] [address] 500235- 5240 June, [facility] [id number] [place] [address] 490363- 6504 June, [facility] [id number] [place] [address] 10647- 0256 June, Erectile dysfunction 607.84 [facility] [id number] [address] May, [facility] [id number] [place] [address] 85900- 3132 May, [facility] [address] [address] Apr, [facility] [id number] [place] [address] 66634- 8679 Apr, [facility] [address] [address]- [address] Apr, [facility] [address] [address]- [address] Apr, [facility] [address] [place] [address]- [address] Apr, [facility] [id number] [place] [address] 669840- 9866 Apr, [facility] [address] [address] Apr, [facility] [id number] [address] Apr, [facility] [address] [place] [address]- [address] Apr, [facility] [address] [place] [address]- [address] Apr, [facility] [address] [place] [address]- [address] Apr, [facility] [id number] [address]- [address] Apr, [facility] [id number] [place] [address] 42335- 7115 Apr, [facility] [address] [place] [address]- [address] Apr, [facility] [address] [place] [address] 01530- 5756 Apr, [facility] [address] [place] [address]- [address] Mar, [facility] [address] [place] [address] Mar, IMMUNIZATIONS No Known Immunizations SOCIAL HISTORY Never Assessed REASON FOR VISIT pain mgmt, PT feels like his Paranoia has increased to the point its everyday, always feeling like people are talking about him or ploting against himChaparro Garcia MA PLAN OF CARE Activity Details Follow Up 4 Weeks Reason:neuropathy VITAL SIGNS Height 72 in 2016-07-21 Weight 296.8 lbs 2016-07-21 Temperature 97.3 degrees Fahrenheit 2016-07-21 Heart Rate 80 bpm 2016-07-21 Respiratory Rate 20 2016-07-21 BMI 40.25 kg/m2 2016-07-21 Blood pressure systolic 140 mmHg 2016-07-21 Blood pressure diastolic 82 mmHg 2016-07-21 MEDICATIONS Medication Instructions Dosage Frequency Start Date End Date Duration Status Lisinopril 20 MG Orally Once a day 1 tablet 24h 30 days Active Duloxetine HCl 60 MG Orally Once a day 1 capsule 24h Jan, 30 days Active Lyrica 100 mg Orally Twice a day 1 capsule 12h 12 Jul, 2016 30 days Active MetFORMIN HCl ER 750 MG Orally twice a day 1 tablet with evening meal 12h 15 Apr, 2016 90 days Active Lyrica 100 MG Orally Twice a day 1 capsule 12h 12 Jul, 2016 30 days Active RESULTS Name Result Date Reference Range A1C (IN HOUSE) 2016-07-21 A1C IN HOUSE 5.7 4.3 - 5.6 % Previous A1c N/A Lot [id number] Exp date 04/2018 Xray : Foot, Left 3 views (IN HOUSE) 2016-07-21 Xray : Foot, Right 3 views (IN HOUSE) 2016-07-21 PROCEDURES Procedure Date Ordered Result Body Site GLYCATED HEMOGLOBIN TEST July 21, 2016 X-RAY EXAM OF FOOT July 21, 2016 INSTRUCTIONS MEDICATIONS ADMINISTERED No Known Medications MEDICAL (GENERAL) HISTORY Type Description Date Medical History hypogonadism Medical History back pain Medical History hx of meth abuse Medical History hyperlipidemia Surgical History appy- pt was in 3rd grade Surgical History tonsilectomy age 10 Hospitalization History 3rd degree minor on legs 2009
--- OUTSIDE RECORDS SUMMARY | 2017-05-21 10:25 | XMS REPORT ---
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 Unknown Non Drug Allergy Jan, Unknown SOCIAL HISTORY No smoking Hx information available PLAN OF CARE VITAL SIGNS Height 72 in 2016-01-16 Weight 309.2 lbs 2016-01-16 Heart Rate 100 bpm 2016-01-16 Respiratory Rate 20 2016-01-16 BMI 41.93 kg/m2 2016-01-16 Blood pressure systolic 124 mmHg 2016-01-16 Blood pressure diastolic 80 mmHg 2016-01-16 MEDICATIONS Medication Instructions Dosage Frequency Start Date End Date Duration Status Gabapentin 300 MG Orally Three times a day as needed for pain 1 capsule Sep, Active MetFORMIN HCl ER 500 MG Orally twice a day 2 tablet 12h Aug, 30 days Active Viagra 100 MG Orally Once a day 1 tablet as needed 24h Active Lisinopril 10 mg Orally Once a day 2 tablet 24h Active Diclofenac Sodium 75 MG Orally bid, pc 1 tablet Sep, Active Duloxetine HCl 60 mg Orally Once a day 1 capsule 24h Jan, Active RESULTS No Results PROCEDURES Procedure Date Ordered Related Diagnosis Body Site Office Visit, Est Pt., Level 3 Jan 16, 2016 IMMUNIZATIONS No Known Immunizations
--- OUTSIDE RECORDS SUMMARY | 2017-05-21 10:26 | XMS REPORT ---
Author Author JOSE HALL [facility] eClinical[employer] Address Unknown Phone Unavailable Care Team Providers Care Housesmith Name Role Phone JOSE HALL CP Unavailable Allergies, Adverse Reactions, Alerts Substance Reaction Event Type N.K.D.A. Info Not Available Non Drug Allergy Problems Problem Type Condition ICD-9 Code Onset Dates Condition Status Assessment Rectal pain 569.42 Active Problem Rectal pain 569.42 Active Problem Elevated blood pressure reading without diagnosis of hypertension 796.2 Active Problem Hypertension 401.9 Active Problem Blood in stool 578.1 Active Assessment Hypertension 401.9 Active Problem Lumbago 724.2 Active Problem Impotence of organic origin 607.84 Active Medications Medication Code System Code Instructions Start Date End Date Status Dosage MiraLax [facility] [address]-27 17 gm/dose Orally Once a day August 25, 2014 Feb 21, 2015 as directed Viagra [facility] [address]-15 100 MG Orally Once a day July 26, 2014 Nov 23, 2014 1 tablet as needed Hydrocodone-Acetaminophen [facility] [address]-79 5-325 MG Orally 2 times a day Oct 03, 2014 Oct 17, 2014 1 tablet as needed Testosterone Cypionate [facility] [address]-97 200 MG/ML Intramuscular monthly July 26, 2014 1 ml Lisinopril [facility] [address]-09 10 MG Orally Once a day August 25, 2014 1 tablet Procedures Procedure Coding System Code Date Office Visit, Est Pt., Level 3 CPT-4 43922 Oct 03, 2014 Vital Signs Date/Time: Oct 03, 2014 Temperature 98.0 F Weight 255.5 lbs Height 72 in BMI 34.65 Index Blood Pressure Diastolic 70 mmHg Blood Pressure Systolic 140 mmHg Cardiac Monitoring Heart Rate 80 bpm Results No Known Results Summary Purpose eClinicalWorks Submission
--- OUTSIDE RECORDS SUMMARY | 2017-05-21 10:26 | XMS REPORT ---
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 146630710 Problem Weight gain R63.5 Active 8121704 Problem Lumbago M54.5 Active 392324279 Problem Arthritis M19.90 Active 7970925 Problem Neuropathy G62.9 Active 423606167 Problem Male erectile dysfunction, unspecified N52.9 Active 435092752 Problem Family history of diabetes mellitus Z83.3 Active 834752688 Problem Encounter to establish care Z76.89 Active 857618401 Problem Essential hypertension I10 Active 60027998 ALLERGIES Unknown Allergies SOCIAL HISTORY No smoking Hx information available PLAN OF CARE VITAL SIGNS MEDICATIONS Unknown Medications RESULTS No Results PROCEDURES No Known procedures IMMUNIZATIONS No Known Immunizations
--- OUTSIDE RECORDS SUMMARY | 2017-05-21 10:26 | XMS REPORT ---
Author Author JOSE HALL [facility] eClinicalWorks Address Unknown Phone Unavailable Care Team Providers Care Diagnostic Technician Name Role Phone JOSE HALL CP Unavailable [...] Start Date End Date Status Dosage Lisinopril [facility] [address]-41 10 MG Orally Once a day August 25, 2014 1 tablet Results No Known Results Summary Purpose eClinicalWorks Submission
--- OUTSIDE RECORDS SUMMARY | 2017-05-21 10:26 | XMS REPORT ---
Author Author KALPESH ARTEAGA Organization [employer] Address Unknown Phone Unavailable Care Team Providers Care Fitness Supervisor Name Role Phone KALPESH ARTEAGA CP Unavailable Allergies No Known Allergies Problems Problem Type Condition Code Onset Dates Condition Status Problem Hypertension I10 Active Problem Essential hypertension I10 Active Problem Male erectile dysfunction, unspecified N52.9 Active Problem Encounter to establish care Z76.89 Active Problem Lumbago M54.5 Active Problem 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 Problem Family history of diabetes mellitus Z83.3 Active Problem Weight gain R63.5 Active Medications Medication Code System Code Instructions Start Date End Date Status Dosage MetFORMIN HCl ER [facility] [address]-48 500 MG Orally Once a day August 24, 2015 1 tablet with evening meal Results No Known Results Summary Purpose eClinicalWorks Submission
--- OUTSIDE RECORDS SUMMARY | 2017-05-21 10:26 | XMS REPORT | Continuity of Care Document ---
Author Author [facility] Address Unknown Phone Unavailable Allergies Active Description Code Type Severity Reaction Onset Reported/Identified Relationship to Patient Clinical Status Yes NKANo Known Allergies NKA Miscellaneous Allergy Mild N/A 04/27/2009 Medications There is no data. 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, IN REMISSION 05/16/2009 KELI FERREIRA EDGAR R 465.9 UPPER RESPIRATORY INFECTION 05/16/2009 KELI FERREIRA, EDGAR R 780.99 OTHER GENERAL SYMPTOMS 05/16/2009 KELI FERREIRA EDGAR R 796.2 ELEVATED BLOOD PRESSURE READING WITHOUT DIAGNOSIS OF HYPERTENSION 05/16/2009 MISHRA DO, GIOVANNI K 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, IN REMISSION 05/16/2009 MISHRA DO, GIOVANNI K 465.9 UPPER RESPIRATORY INFECTION 05/16/2009 MISHRA DO, GIOVANNI K 780.99 OTHER GENERAL SYMPTOMS 05/16/2009 MISHRA DO, GIOVANNI K 796.2 ELEVATED BLOOD PRESSURE READING WITHOUT DIAGNOSIS OF HYPERTENSION 05/16/2009 MISHRA DO, GIOVANNI K 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, IN REMISSION 05/16/2009 MISHRA DO, GIOVANNI K 465.9 UPPER RESPIRATORY INFECTION 05/16/2009 MISHRA DO, GIOVANNI K 780.99 OTHER GENERAL SYMPTOMS 05/16/2009 MISHRA DO, GIOVANNI K 796.2 ELEVATED BLOOD PRESSURE READING WITHOUT DIAGNOSIS OF HYPERTENSION 03/14/2014 KELI FERREIRA EDGAR R 724.2 LUMBAGO/ LOW BACK PAIN 03/14/2014 KELI AQUATIC PERFORMER, EDGAR R 724.2 LUMBAGO/ LOW BACK PAIN 03/14/2014 TAD PATTON, GIOVANNI K 724.2 LUMBAGO/ LOW BACK PAIN 03/14/2014 MISHRA DO, GIOVANNI K 724.2 LUMBAGO/ LOW BACK PAIN 04/28/2014 KELI AQUATIC PERFORMER, EDGAR R 578.1 BLOOD IN STOOL 04/28/2014 KELI AQUATIC PERFORMER, EDGAR R 607.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 04/28/2014 KELI AQUATIC PERFORMER, EDGAR R 578.1 BLOOD IN STOOL 04/28/2014 KELI AQUATIC PERFORMER, EDGAR R 607.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 04/28/2014 TAD PATTON, GIOVANNI K 578.1 BLOOD IN STOOL 04/28/2014 TAD PATTON, GIOVANNI K 607.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 04/28/2014 TAD PATTON, GIOVANNI K 578.1 BLOOD IN STOOL 04/28/2014 GIOVANNI MISHRA DO K 607.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 11/02/2014 JANE RUIZ DO Ot 562.10 DIVERTICULOSIS COLON (W/O MENT OF HEMORR 11/02/2014 JANE RUIZ DO Ot 565.0 ANAL FISSURE 02/29/2016 JANNETTE HARDY DO Ot E07.89 OTHER SPECIFIED DISORDERS OF THYROID 02/29/2016 JANNETTE HARDY DO Ot E11.9 TYPE 2 DIABETES MELLITUS WITHOUT COMPLIC 02/29/2016 JANNETTE HARDY DO Ot F17.220 NICOTINE DEPENDENCE, CHEWING TOBACCO, UN 02/29/2016 JANNETTE HARDY DO Ot I10 ESSENTIAL (PRIMARY) HYPERTENSION 02/29/2016 JANNETTE HARDY DO Ot J44.9 CHRONIC OBSTRUCTIVE PULMONARY DISEASE, U 02/29/2016 JANNETTE HARDY DO Ot R91.8 OTHER NONSPECIFIC ABNORMAL FINDING OF SHAR 02/29/2016 JANNETTE HARDY DO Ot S21.111A LAC W/O FB OF R FRNT WL OF THORAX W/O PE 02/29/2016 JANNETTE HARDY DO Ot W26.0XXA CONTACT WITH KNIFE, INITIAL ENCOUNTER 02/29/2016 JANNETTE HARDY DO Ot Y99.8 OTHER EXTERNAL CAUSE STATUS 02/29/2016 HAYLEY PATTON JANNETTE Rory Ot Z23 ENCOUNTER FOR IMMUNIZATION 02/29/2016 HAYLEY PATTON JANNETTE Rory Ot Z79.84 RETIREMENT (CURRENT) USE OF ORAL HYPOGLYC 02/29/2016 HAYLEY PATTON JANNETTE Rory Ot Z79.899 OTHER RETIREMENT (CURRENT) DRUG THERAPY 02/29/2016 HAYLEY PATTON JANNETTE Rory Real Z87.891 PERSONAL HISTORY OF NICOTINE DEPENDENCE 03/03/2016 HAYLEY JANNETTE K Ot E07.89 OTHER SPECIFIED DISORDERS OF THYROID 03/03/2016 HAYLEY JANNETTE K Ot E11.9 TYPE 2 DIABETES MELLITUS WITHOUT COMPLIC 03/03/2016 HAYLEY JANNETTE K Ot F17.220 NICOTINE DEPENDENCE, CHEWING TOBACCO, UN 03/03/2016 HAYLEY JANNETTE K Ot I10 ESSENTIAL (PRIMARY) HYPERTENSION 03/03/2016 HAYLEY PATTON JANNETTE K Ot J44.9 CHRONIC OBSTRUCTIVE PULMONARY DISEASE, U 03/03/2016 HAYLEY JANNETTE K Ot R91.8 OTHER NONSPECIFIC ABNORMAL FINDING OF SHAR 03/03/2016 HAYLEY DO JANNETTE Rory Ot S21.111A LAC W/O FB OF R FRNT WL OF THORAX W/O PE 03/03/2016 HAYLEY PATTON JANNETTE Rory Ot W26.0XXA CONTACT WITH KNIFE, INITIAL ENCOUNTER 03/03/2016 HAYLEY PATTON JANNETTE Rory Real Y99.8 OTHER EXTERNAL CAUSE STATUS 03/03/2016 HAYLEY PATTON JANNETTE K Ot Z23 ENCOUNTER FOR IMMUNIZATION 03/03/2016 HAYLEY PATTON JANNETTE Rory Real Z79.84 GRINDER HAND (CURRENT) USE OF ORAL HYPOGLYC 03/03/2016 HAYLEY PATTON JANNETTE Rory Ot Z79.899 OTHER RETIREMENT (CURRENT) DRUG THERAPY 03/03/2016 HAYLEY PATTON JANNETTE K Ot Z87.891 PERSONAL HISTORY OF NICOTINE DEPENDENCE Procedures Code [place] [address] HEMOCCULT 05/01/2014 07135 HEMOCCULT 05/01/2014 Jane Robledo 05/02/2014 10914 THERAPUTIC INJ SQ/IM 05/04/2014 25532 THERAPUTIC INJ SQ/IM 05/31/2014 Results Test Result Range Complete blood count (CBC) with automated white blood cell (WBC) differential - 02/29/16 20:18 Blood leukocytes automated count (number/volume) 11.8 10*3/uL 4.3-11.0 Blood erythrocytes automated count (number/volume) 4.83 10*6/uL 4.35-5.85 Venous blood hemoglobin measurement (mass/volume) 14.3 g/dL 13.3-17.7 Blood hematocrit (volume fraction) 41 % 40-54 Automated erythrocyte mean corpuscular volume 86 [foz_us] 80-99 Automated erythrocyte mean corpuscular hemoglobin (mass per erythrocyte) 30 pg 25-34 Automated erythrocyte mean corpuscular hemoglobin concentration measurement ( mass/volume) 35 g/dL 32-36 Automated erythrocyte distribution width ratio 13.9 % 10.0-14.5 Automated blood platelet count (count/volume) 331 10*3/uL 130-400 Automated blood platelet mean volume measurement 8.9 [foz_us] 7.4-10.4 Automated blood neutrophils/100 leukocytes 63 % 42-75 Automated blood lymphocytes/100 leukocytes 29 % 12-44 Blood monocytes/100 leukocytes 6 % 0-12 Automated blood eosinophils/100 leukocytes 3 % 0-10 Automated blood basophils/100 leukocytes 0 % 0-10 Blood neutrophils automated count (number/volume) 7.4 10*3 1.8-7.8 Blood lymphocytes automated count (number/volume) 3.4 10*3 1.0-4.0 Blood monocytes automated count (number/volume) 0.7 10*3 0.0-1.0 Automated eosinophil count 0.3 10*3/uL 0.0-0.3 Automated blood basophil count (count/volume) 0.0 10*3/uL 0.0-0.1 PT panel in platelet poor plasma by coagulation assay - 02/29/16 20:18 Prothrombin time (PT) in platelet poor plasma by coagulation assay 12.1 s 12.2-14.7 INR in platelet poor plasma or blood by coagulation assay 0.9 0.8-1.4 Activated partial thromboplastin time (aPTT) in platelet poor plasma bycoagulation assay - 02/29/16 20:18 Activated partial thromboplastin time (aPTT) in platelet poor plasma bycoagulation assay 26 s 24-35 Comprehensive metabolic panel - 02/29/16 20:18 Serum or plasma sodium measurement (moles/volume) 140 mmol/L 135-145 Serum or plasma potassium measurement (moles/volume) 4.1 mmol/L 3.6-5.0 Serum or plasma chloride measurement (moles/volume) 107 mmol/L 98-107 Carbon dioxide 22 mmol/L 21-32 Serum or plasma anion gap determination (moles/volume) 11 mmol/L 5-14 Serum or plasma urea nitrogen measurement (mass/volume) 18 mg/dL 7-18 Serum or plasma creatinine measurement (mass/volume) 1.04 mg/dL 0.60-1.30 Serum or plasma urea nitrogen/creatinine mass ratio 17 NRG Serum or plasma creatinine measurement with calculation of estimated glomerular filtration rate > NRG Serum or plasma glucose measurement (mass/volume) 104 mg/dL 70-105 Serum or plasma calcium measurement (mass/volume) 8.9 mg/dL 8.5-10.1 Serum or plasma total bilirubin measurement (mass/volume) 0.2 mg/dL 0.1-1.0 Serum or plasma alkaline phosphatase measurement (enzymatic activity/volume) 70 U/L 40-136 Serum or plasma aspartate aminotransferase measurement (enzymatic activity/ volume) 18 U/L 5-34 Serum or plasma alanine aminotransferase measurement (enzymatic activity/volume ) 31 U/L 0-55 Serum or plasma protein measurement (mass/volume) 6.7 g/dL 6.4-8.2 Serum or plasma albumin measurement (mass/volume) 4.1 g/dL 3.2-4.5 Serum or plasma troponin i.cardiac measurement (mass/volume) - 02/29/16 20:18 Serum or plasma troponin i.cardiac measurement (mass/volume) < ng/ mL <0.30 Serum or plasma amylase measurement (enzymatic activity/volume) - 02/29/16 20: 18 Serum or plasma amylase measurement (enzymatic activity/volume) 39 U /L 25-125 Lipase - 02/29/16 20:18 Lipase 27 U/L 8-78 Serum or plasma ethanol measurement (mass/volume) - 02/29/16 20:18 Serum or plasma ethanol measurement (mass/volume) < mg/dL <10 Complete urinalysis with reflex to culture - 02/29/16 21:11 Urine color determination YELLOW NRG Urine clarity determination CLEAR NRG Urine pH measurement by test strip 5 5-9 Specific gravity of urine by test strip 1.020 1.016- 1.022 Urine protein assay by test strip, semi-quantitative 1+ NEGATIVE Urine glucose detection by automated test strip NEGATIVE NEGATIVE Erythrocytes detection in urine sediment by light microscopy NEGATIVE NEGATIVE Urine ketones detection by automated test strip NEGATIVE NEGATIVE Urine nitrite detection by test strip NEGATIVE NEGATIVE Urine total bilirubin detection by test strip NEGATIVE NEGATIVE Urine urobilinogen measurement by automated test strip (mass/volume) NORMAL NORMAL Urine leukocyte esterase detection by dipstick 1+ NEGATIVE Automated urine sediment erythrocyte count by microscopy (number/high power field) NONE NRG Automated urine sediment leukocyte count by microscopy (number/high power field ) [HPF] NRG Bacteria detection in urine sediment by light microscopy NONE NRG Squamous epithelial cells detection in urine sediment by light microscopy 2-5 NRG Crystals detection in urine sediment by light microscopy NONE NRG Casts detection in urine sediment by light microscopy NONE NRG Mucus detection in urine sediment by light microscopy NEGATIVE NRG Complete urinalysis with reflex to culture NO NRG Urine drug screening test - 02/29/16 21:11 Urine phencyclidine detection by screening method NEGATIVE NEGATIVE Urine benzodiazepines detection by screening method POSITIVE NEGATIVE Urine cocaine detection NEGATIVE NEGATIVE Urine amphetamines detection by screening method POSITIVE NEGATIVE Urine methamphetamine detection by screening method POSITIVE NEGATIVE Urine cannabinoids detection by screening method POSITIVE NEGATIVE Urine opiates detection by screening method POSITIVE NEGATIVE Urine barbiturates detection NEGATIVE NEGATIVE Screening urine tricyclic antidepressants detection NEGATIVE NEGATIVE Urine methadone detection by screening method NEGATIVE NEGATIVE Urine oxycodone detection NEGATIVE NEGATIVE Urine propoxyphene detection NEGATIVE NEGATIVE Complete blood count (CBC) with automated white blood cell (WBC) differential - 05/20/17 09:30 Blood leukocytes automated count (number/volume) 9.2 10*3/uL 4.3-11.0 Blood erythrocytes automated count (number/volume) 5.70 10*6/uL 4.35-5.85 Venous blood hemoglobin measurement (mass/volume) 16.3 g/dL 13.3-17.7 Blood hematocrit (volume fraction) 47 % 40-54 Automated erythrocyte mean corpuscular volume 82 [foz_us] 80-99 Automated erythrocyte mean corpuscular hemoglobin (mass per erythrocyte) 29 pg 25-34 Automated erythrocyte mean corpuscular hemoglobin concentration measurement ( mass/volume) 35 g/dL 32-36 Automated erythrocyte distribution width ratio 14.1 % 10.0-14.5 Automated blood platelet count (count/volume) 293 10*3/uL 130-400 Automated blood platelet mean volume measurement 9.1 [foz_us] 7.4-10.4 Automated blood neutrophils/100 leukocytes 62 % 42-75 Automated blood lymphocytes/100 leukocytes 28 % 12-44 Blood monocytes/100 leukocytes 7 % 0-12 Automated blood eosinophils/100 leukocytes 3 % 0-10 Automated blood basophils/100 leukocytes 0 % 0-10 Blood neutrophils automated count (number/volume) 5.7 10*3 1.8-7.8 Blood lymphocytes automated count (number/volume) 2.6 10*3 1.0-4.0 Blood monocytes automated count (number/volume) 0.7 10*3 0.0-1.0 Automated eosinophil count 0.2 10*3/uL 0.0-0.3 Automated blood basophil count (count/volume) 0.0 10*3/uL 0.0-0.1 PT panel in platelet poor plasma by coagulation assay - 05/20/17 09:30 Prothrombin time (PT) in platelet poor plasma by coagulation assay 12.0 s 12.2-14.7 INR in platelet poor plasma or blood by coagulation assay 0.9 0.8-1.4 Activated partial thromboplastin time (aPTT) in platelet poor plasma bycoagulation assay - 05/20/17 09:30 Activated partial thromboplastin time (aPTT) in platelet poor plasma bycoagulation assay 27 s 24-35 Fibrin D-dimer FEU measurement in platelet poor plasma (mass/volume) - 09:30 Fibrin D-dimer FEU measurement in platelet poor plasma (mass/volume) 0.81 ug/mL 0.00-0.49 Comprehensive metabolic panel - 05/20/17 09:30 Serum or plasma sodium measurement (moles/volume) 140 mmol/L 135-145 Serum or plasma potassium measurement (moles/volume) 4.2 mmol/L 3.6-5.0 Serum or plasma chloride measurement (moles/volume) 107 mmol/L 98-107 Carbon dioxide 23 mmol/L 21-32 Serum or plasma anion gap determination (moles/volume) 10 mmol/L 5-14 Serum or plasma urea nitrogen measurement (mass/volume) 15 mg/dL 7-18 Serum or plasma creatinine measurement (mass/volume) 1.01 mg/dL 0.60-1.30 Serum or plasma urea nitrogen/creatinine mass ratio 15 NRG Serum or plasma creatinine measurement with calculation of estimated glomerular filtration rate > NRG Serum or plasma glucose measurement (mass/volume) 95 mg/dL 70-105 Serum or plasma calcium measurement (mass/volume) 10.0 mg/dL 8.5-10.1 Serum or plasma total bilirubin measurement (mass/volume) 0.5 mg/dL 0.1-1.0 Serum or plasma alkaline phosphatase measurement (enzymatic activity/volume) 63 U/L 40-136 Serum or plasma aspartate aminotransferase measurement (enzymatic activity/ volume) 17 U/L 5-34 Serum or plasma alanine aminotransferase measurement (enzymatic activity/volume ) 29 U/L 0-55 Serum or plasma protein measurement (mass/volume) 7.2 g/dL 6.4-8.2 Serum or plasma albumin measurement (mass/volume) 4.3 g/dL 3.2-4.5 Magnesium - 05/20/17 09:30 Magnesium 2.0 mg/dL 1.8-2.4 Serum or plasma troponin i.cardiac measurement (mass/volume) - 05/20/17 09:30 Serum or plasma troponin i.cardiac measurement (mass/volume) < ng/ mL <0.30 Myoglobin, serum - 05/20/17 09:30 Myoglobin, serum 54.6 ng/mL 10.0-92.0 Serum or plasma troponin i.cardiac measurement (mass/volume) - 05/20/17 15:35 Serum or plasma troponin i.cardiac measurement (mass/volume) < ng/ mL <0.30 Serum or plasma troponin i.cardiac measurement (mass/volume) - 05/20/17 21:40 Serum or plasma troponin i.cardiac measurement (mass/volume) < ng/ mL <0.30 Automated blood complete blood count (hemogram) panel - 05/21/17 03:35 Blood leukocytes automated count (number/volume) 10.1 10*3/uL 4.3-11.0 Blood erythrocytes automated count (number/volume) 5.58 10*6/uL 4.35-5.85 Venous blood hemoglobin measurement (mass/volume) 15.9 g/dL 13.3-17.7 Blood hematocrit (volume fraction) 46 % 40-54 Automated erythrocyte mean corpuscular volume 82 [foz_us] 80-99 Automated erythrocyte mean corpuscular hemoglobin (mass per erythrocyte) 29 pg 25-34 Automated erythrocyte mean corpuscular hemoglobin concentration measurement ( mass/volume) 35 g/dL 32-36 Automated erythrocyte distribution width ratio 13.8 % 10.0-14.5 Automated blood platelet count (count/volume) 332 10*3/uL 130-400 Automated blood platelet mean volume measurement 9.4 [foz_us] 7.4-10.4 Comprehensive metabolic panel - 05/21/17 03:35 Serum or plasma sodium measurement (moles/volume) 138 mmol/L 135-145 Serum or plasma potassium measurement (moles/volume) 3.9 mmol/L 3.6-5.0 Serum or plasma chloride measurement (moles/volume) 103 mmol/L 98-107 Carbon dioxide 23 mmol/L 21-32 Serum or plasma anion gap determination (moles/volume) 12 mmol/L 5-14 Serum or plasma urea nitrogen measurement (mass/volume) 15 mg/dL 7-18 Serum or plasma creatinine measurement (mass/volume) 0.97 mg/dL 0.60-1.30 Serum or plasma urea nitrogen/creatinine mass ratio 15 NRG Serum or plasma creatinine measurement with calculation of estimated glomerular filtration rate > NRG Serum or plasma glucose measurement (mass/volume) 101 mg/dL 70-105 Serum or plasma calcium measurement (mass/volume) 9.8 mg/dL 8.5-10.1 Serum or plasma total bilirubin measurement (mass/volume) 0.5 mg/dL 0.1-1.0 Serum or plasma alkaline phosphatase measurement (enzymatic activity/volume) 57 U/L 40-136 Serum or plasma aspartate aminotransferase measurement (enzymatic activity/ volume) 16 U/L 5-34 Serum or plasma alanine aminotransferase measurement (enzymatic activity/volume ) 25 U/L 0-55 Serum or plasma protein measurement (mass/volume) 7.3 g/dL 6.4-8.2 Serum or plasma albumin measurement (mass/volume) 4.4 g/dL 3.2-4.5 Magnesium - 05/21/17 03:35 Magnesium 1.9 mg/dL 1.8-2.4 Lipid 1996 panel - 05/21/17 03:35 Serum or plasma triglyceride measurement (mass/volume) 143 mg/dL <150 Serum or plasma cholesterol measurement (mass/volume) 192 mg/dL < 200 Serum or plasma cholesterol in HDL measurement (mass/volume) 36 mg/ dL 40-60 Cholesterol in LDL [mass/volume] in serum or plasma by direct assay 145 mg/dL 1-129 Serum or plasma cholesterol in VLDL measurement (mass/volume) 29 mg/ dL 5-40 THYROID STIMULATING HORMONE - 05/21/17 03:35 THYROID STIMULATING HORMONE 3.21 u[iU]/mL 0.35-4.94 Encounters ACCT No. Visit Date/Time Discharge Status Pt. Type Provider Facility Loc./Unit Complaint [id number] 05/31/2014 10:09:00 05/31/2014 23:59:59 CLS Outpatient TAD GIOVANNI K [id number] 05/04/2014 14:37:00 05/04/2014 23:59:59 CLS Outpatient GIOVANNI MISHRA DO [id number] 05/01/2014 17:55:00 05/01/2014 23:59:59 CLS Outpatient EDGAR DICKEY APRN [id number] 04/28/2014 15:23:00 04/28/2014 23:59:59 CLS Outpatient EDGAR DICKEY APRN [id number] 02/29/2016 20:03:00 02/29/2016 22:40:00 DIS Emergency JANNETTE HARDY DO [facility] ER CHEST LAC [id number] 11/02/2014 12:18:00 11/02/2014 14:45:00 DIS Outpatient JANE RUIZ DO [facility] SDC ANAL FISSURE [id number] 11/01/2014 05:41:00 11/01/2014 23:59:59 CLS Outpatient JANE RUIZ DO [facility] PREOP [id number] 07/05/2014 05:46:00 07/05/2014 23:59:59 CLS Outpatient JANE RUIZ DO [facility] PREOP [id number] 05/20/2017 11:58:00 ACT Inpatient RUBY GREER, MANN Mcclain [facility] ICU [id number] 04/03/2017 09:45:00 04/03/2017 23:59:59 CLS Outpatient KALPESH ARTEAGA APRN [facility] [place]
--- OUTSIDE RECORDS SUMMARY | 2017-05-21 10:53 | XMS REPORT | Clinical Summary ---
Author Author [facility] Organization [facility] Address Unknown Phone Unavailable Care Team Providers Care Still Operator Brandy Name Role Phone Self, Referral PCP Unavailable Juan A Klein MD Unavailable Source Comments Some departments are not documenting in the electronic medical record. If you do not see the information that you expected, contact Release of Information in the Health Information Management department at [phone] for further assistance in locating additional records.[facility] Allergies No Known Allergies Current Medications Prescription [...] 185.4 cm (6' 0.99") 04/16/2009 1:30 PM [facility] Body Mass Index 36.39 04/23/2009 10:00 AM CDT Plan of Treatment Health Maintenance Due Date Last Done Comments HEPATITIS C SCREENING 1965 PHYSICAL (COMPREHENSIVE) 02/03/1972 EXAM PERTUSSIS VACCINE 02/03/1976 HIV SCREENING 02/03/1980 COLORECTAL CANCER 2015 SCREENING INFLUENZA VACCINE 11/09/2017 TETANUS VACCINE 04/08/2019 04/08/2009 Results Not on filefrom Last 3 Months
--- OUTSIDE RECORDS SUMMARY | 2017-05-21 10:53 | XMS REPORT | Continuity of Care Document ---
Author Author [employer] Organization [facility] Address Unknown Phone Unavailable Care Team Providers Care Steel Rod Buster Name Role Phone [employer] Unavailable Unavailable Problems Medications Allergies, Adverse Reactions, Alerts Immunizations Results Vital Signs Encounters Location Location Details Encounter Type Encounter Number Reason For Visit Attending Provider ADM Date DC Date Status Source O [id number] MARCELINA RAMONE 05/21/2009 05/21/2009 Active [facility] Procedures Plan of Care Social History Assessment and Plan Family History Advance Directives Functional Status
--- OUTSIDE RECORDS SUMMARY | 2017-05-21 10:55 | XMS REPORT | Continuity of Care Document ---
Author Author [facility] Address Unknown Phone Unavailable Allergies [...] 724.2 LUMBAGO/ LOW BACK PAIN 03/14/2014 KELI PARI MUTUEL TICKET SELLER, EDGAR R 724.2 LUMBAGO/ LOW BACK PAIN 03/14/2014 TAD PATTON, GIOVANNI K 724.2 LUMBAGO/ LOW BACK PAIN 03/14/2014 MISHRA DO, GIOVANNI K 724.2 LUMBAGO/ LOW BACK PAIN 04/28/2014 KELI PARI MUTUEL TICKET SELLER, EDGAR R 578.1 BLOOD IN STOOL 04/28/2014 KELI PARI MUTUEL TICKET SELLER, EDGAR R 607.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 04/28/2014 KELI PARI MUTUEL TICKET SELLER, EDGAR R 578.1 BLOOD IN STOOL 04/28/2014 KELI PARI MUTUEL TICKET SELLER, EDGAR R 607.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 [...] 02/29/2016 HAYLEY PATTON JANNETTE Rory Ot Z79.84 SKILLED NURSING (CURRENT) USE OF ORAL HYPOGLYC 02/29/2016 HAYLEY PATTON JANNETTE Rory Ot Z79.899 OTHER SKILLED NURSING (CURRENT) DRUG THERAPY 02/29/2016 HAYLEY PATTON JANNETTE [...] 03/03/2016 HAYLEY PATTON JANNETTE Rory Real Z79.84 BYPRODUCTS OPERATOR (CURRENT) USE OF ORAL HYPOGLYC 03/03/2016 HAYLEY PATTON JANNETTE Rory Ot Z79.899 OTHER SKILLED NURSING (CURRENT) DRUG THERAPY 03/03/2016 HAYLEY PATTON JANNETTE K Ot Z87.891 PERSONAL HISTORY OF NICOTINE DEPENDENCE Procedures Code Description [place] [address] HEMOCCULT 05/01/2014 19302 HEMOCCULT 05/01/2014 Jane Robledo 05/02/2014 76097 THERAPUTIC INJ SQ/IM 05/04/2014 67450 THERAPUTIC INJ SQ/IM 05/31/2014 Results Test Result [...] Status Pt. Type Provider Facility Loc./Unit Complaint [id number] 05/31/2014 10:09:00 05/31/2014 23:59:59 CLS Outpatient TAD GIOVANNI K [id number] 05/04/2014 14:37:00 05/04/2014 23:59:59 CLS Outpatient GIOVANNI MISHRA DO [id number] 05/01/2014 17:55:00 05/01/2014 23:59:59 CLS Outpatient EDGRA DICKEY APRN [id number] 04/28/2014 15:23:00 04/28/2014 23:59:59 CLS Outpatient EDGAR DICKEY APRN [id number] 02/29/2016 20:03:00 02/29/2016 22:40:00 DIS Emergency JANNETTE HARDY DO [facility] ER CHEST LAC [id number] 11/02/2014 12:18:00 11/02/2014 14:45:00 DIS Outpatient JANE RUIZ DO [facility] SDC ANAL FISSURE [id number] 11/01/2014 05:41:00 11/01/2014 23:59:59 CLS Outpatient JANE RUIZ DO [facility] PREOP [id number] 07/05/2014 05:46:00 07/05/2014 23:59:59 CLS Outpatient JANE RUIZ DO [facility] PREOP [id number] 05/20/2017 11:58:00 ACT Inpatient RUBY GREER, MANN Mcclain [facility] ICU [id number] 04/03/2017 09:45:00 04/03/2017 23:59:59 CLS Outpatient KALPESH ARTEAGA APRN [facility]
[2017-05-21] MEDS ORDERED: NF-MET200T PO (12:37)
[2017-05-21] MEDS ORDERED: ASPI-999 PO (12:37)
[2017-05-21 14:10] VITALS: BP 148/96
--- NOTE | 2017-05-21 14:52 | STRESS TEST ---
DATE OF SERVICE: 05/21/2017 RESTING AND POST REGADENOSON TECHNETIUM 99M TETROFOSMIN SPECT CT IMAGING ORDERING PHYSICIAN: Jenna Lowery APRN PRIMARY PHYSICIAN: Dr. Lamas. OTHER PHYSICIAN: Dr. Alejandre. CLINICAL DIAGNOSIS: Chest discomfort, supraventricular tachycardia. Baseline images were carried out after injection of 10.17 mCi of technetium-99m tetrofosmin. This was followed by 0.4 mg regadenoson and 29.3 mCi technetium-99 tetrofosmin for stress imaging. The electrocardiogram showed sinus rhythm throughout the study. The electrocardiogram did not change significantly with the regadenoson infusion. He tolerated the procedure well. Review of images at rest and following stress does not indicate any distinct perfusion defects consistent with myocardial ischemia or infarction. Some degree of diaphragmatic attenuation is seen both at rest and following regadenoson infusion. Gated images show normal global systolic function with normal regional wall motion, including the diaphragmatic wall of the left ventricle. Left ventricular ejection fraction is calculated to be 66%. Left ventricular end diastolic volume is 92 mL. TID is absent (0.97). CONCLUSIONS: 1. No evidence of any significant myocardial ischemia or infarction on this study. 2. Normal regional wall motion. 3. Normal global left ventricular systolic function with a calculated ejection fraction of 66%. Job ID: [id number] DocumentID: [id number] Dictated Date: 05/21/2017 11:27:10 [employer] Date: 05/21/2017 14:25:10 Dictated By: BERTRAND ALEJANDRE MD, MA, FACP, FACC,
--- NOTE | 2017-05-21 22:52 | Short Stay Summary ---
History of Present Illness History of Present Illness Date of Admission May 20, 2017 at 11:58 Date of Discharge May 21, 2017 at 14:10 Attending Physician Odilia Ventura MD Admitting Physician Sariah Lamas DO Consult Allergies and Home Medications Allergies Coded Allergies: NKANo Known Allergies (Unverified Allergy, Mild, 04/27/09) Home Medications Aspirin 81 Mg Tab.chew, 81 MG PO DAILY Prescribed by: OLI CARVAJAL on 05/21/17 1237 Metformin HCl 500 Mg Tab.er.24h, 500 MG PO BID, (Reported) Metoprolol Succinate 200 Mg Tab, 200 MG PO DAILY Prescribed by: OLI CARVAJAL on 05/21/17 1237 Past Onvonaj-Uhvmah-Sgyvwv Hx Patient Social History Alcohol Use: Rarely Uses Number of Drinks Today: 0 Recreational Drug Use: Yes (METH PAST, MARIJUANA) Smoking Status: Current Someday Smoker Type Used: Cigarettes, Smokeless Tobacco Physical Abuse Screen: No Sexual Abuse: No Recent Foreign Travel: No Contact w/other who traveled: No Recent Hopitalizations: No Recent Infectious Disease Expo: No Immunizations Up To Date Tetanus Booster (TDap): More than 5yrs Seasonal Allergies Seasonal Allergies: No Surgeries Yes Appendectomy, Tonsillectomy Respiratory Yes (BEGINNING OF COPD/ ASTHMA CHILD) Cardiovascular Yes High Cholesterol, Hypertension Neurological Yes (NEUROPATHY IN FEET) Neuropathy Reproductive System Sexually Transmitted Disease: No HIV/AIDS: No Genitourinary No Gastrointestinal No Musculoskeletal Yes (CHRONIC BACK PAIN / "JAW PAIN AND POPPING") Chronic Back Pain Endocrine History of Endocrine Disorders: Yes Endocrine Disorders: Diabetes, Insulin dep HEENT History of HEENT Disorders: No HEENT Disorders: Tonsilitis Loss of Vision: Denies Hearing Impairment: Denies Cancer No Psychosocial History of Psychiatric Problem: Yes Behavioral Health Disorders: Anxiety, Depression Integumentary History of Skin or Integumenta: No Blood Transfusions History of Blood Disorders: No Family Medical History Significant Family History: No Pertinent Family Hx Physical Exam Vital Signs Vital Signs - First Documented 05/20/17 05/20/17 09:30 13:30 Temp 98.4 Pulse 88 Resp 16 B/P (MAP) 146/95 (112) Pulse Ox 97 O2 Delivery Room Air Capillary Refill : Less Than 3 Seconds Clinical Quality Measures AMI/AHF: ASA po Prior to arrival: No DVT/VTE Risk/Contraindication: Risk Factor Score Per Nursin RFS Level Per Nursing on Admit: 2=Moderate Short Stay Diagnosis Discharge Diagnosis-Short Stay Admission Diagnosis: Arrythemia possible PSVT Atypical Chest pain HTN HLD NIIDM Tobacco Abuse BMI 30 Final Discharge Diagnosis: Arrythemia possible PSVT Atypical Chest pain HTN HLD NIIDM Conclusion Labs Laboratory Tests 05/21/17 03:35: White Blood Count 10.1, Red Blood Count 5.58, Hemoglobin 15.9, Hematocrit 46, Mean Corpuscular Volume 82, Mean Corpuscular Hemoglobin 29, Mean Corpuscular Hemoglobin Concent 35, Red Cell Distribution Width 13.8, Platelet Count 332, Mean Platelet Volume 9.4, Sodium Level 138, Potassium Level 3.9, Chloride Level 103, Carbon Dioxide Level 23, Anion Gap 12, Blood Urea Nitrogen 15, Creatinine 0.97, Estimat Glomerular Filtration Rate > 60, BUN/Creatinine Ratio 15, Glucose Level 101, Calcium Level 9.8, Magnesium Level 1.9, Total Bilirubin 0.5, Aspartate Amino Transf (AST/SGOT) 16, Alanine Aminotransferase (ALT/SGPT) 25, Alkaline Phosphatase 57, Total Protein 7.3, Albumin 4.4, Triglycerides Level 143 , Cholesterol Level 192, LDL Cholesterol Direct 145H, VLDL Cholesterol 29, HDL Cholesterol 36L, Thyroid Stimulating Hormone (TSH) 3.21 Conclusion/Plan 52 yo M with poor compliance of medical conditions that presented from skilled nursing with arrhythmia thought to be SVT, now is SR Arrhythmia possible PSVT - Cardiology was consulted, patient had normal stress and Echo Atypical Chest pain - Resolved this AM HTN: Uncontrolled - Discussed the importance of taking medications as prescribed, Will have close follow up with PCP Elliott OMER - Recommend patient take statin NIIDM - Outpatient A1c due Tobacco Abuse - Discussed the importance of cessation Obesity - Encouraged weight loss Patient to d.c home today with close follow up with PCP Tara Gallagher Copy Copies To 1: Tara HOLM HOLLY R MD May 21, 2017 22:52
== END 2017-05-21 14:10 | disposition home or self-care (01) ==
LOC: EDUNIT# 09:29 → ER 09:30 → UNDOADMOB 11:58 → ICU 11:58 → UNDODISOB 05-21 14:10
PROVIDERS: ADMIT Family Medicine; ATTEND Family Medicine
DX: I47.1 Supraventricular tachycardia (principal); R07.89 Other chest pain; I10 Essential (primary) hypertension; E78.5 Hyperlipidemia, unspecified; E11.40 Type 2 diabetes mellitus with diabetic neuropathy, unspecified; F17.210 Nicotine dependence, cigarettes, uncomplicated; K80.20 Calculus of gallbladder without cholecystitis without obstruction; R91.8 Other nonspecific abnormal finding of lung field; E66.9 Obesity, unspecified; Z91.19 Patient's noncompliance with other medical treatment and regimen; F41.9 Anxiety disorder, unspecified; F32.9 Major depressive disorder, single episode, unspecified; Z79.84 Long term (current) use of oral hypoglycemic drugs; Z79.82 Long term (current) use of aspirin; Z79.899 Other long term (current) drug therapy
CPT/HCPCS: 36415; 71045; 71275; 78452; 80053; 80061; 83036; 83735; 83874; 84443; 84484; 85025; 85027; 85379; 85610; 85730; 93005; 93017; 93041; 93306

== ENCOUNTER 2018-03-31 06:19 | Emergency (ER) | payer MEDICAID ==
[~2018-03-31] VITALS: Ht 190.5 cm; Wt 122.5 kg
[~2018-03-31 06:19] MED LIST changes: +ASPI-999 PO; +LISI-552 PO; +NF-MET200T PO; +TRAZ-189 PO
--- OUTSIDE RECORDS SUMMARY | 2018-03-31 06:26 | XMS REPORT | Clinical Summary ---
Author Author [facility] Organization [facility] Address Unknown Phone Unavailable Care Team Providers Care Photostatic Copy Maker Name Role Phone Self, Referral PCP Unavailable Juan A Klein MD Unavailable Source Comments Some departments are not documenting in the electronic medical record. If you do not see the information that you expected, contact Release of Information in the Health Information Management department at [phone] for further assistance in locating additional records.[facility] Allergies No Known Allergies Medications End Date Status Medication Sig Dispensed Refills Start Date Active morphine IR (MS IR) 15 mg Take 1-2 Tabs 90 Tab 0 tablet by mouth 0 Every 3-4 Hours as needed for Pain. Active morphine SR (MS CONTIN) Take 1 Tab by 30 Tab 0 15 mg tablet mouth Twice 0 Daily. Active bacitracin 500 unit/g Apply to 2 Container 6 topical ointment affected area 0 Daily. Active collagenase (SANTYL) 250 Apply to 2 Container 4 unit/g topical ointment affected area 0 Daily. Active Problems Problem Noted Date Hypokalemia 04/20/2009 [...] Status Comments Father Maternal Grandmother Social History Date Tobacco Use Types Packs/Day Years Used Current Every Day Smoker Cigarettes 1 15 Alcohol Use Drinks/Week oz/Week Comments No Sex Assigned at Date Recorded Not on file Industry Job Start Date Occupation Not on file Not on file Not on file Travel End Travel History Travel Start No recent travel history available. 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
--- OUTSIDE RECORDS SUMMARY | 2018-03-31 06:27 | XMS REPORT ---
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 00854438 Problem Hallux rigidus of right foot M20.21 Active 872172378 Problem Slow transit constipation K59.01 Active 00304122 Problem Adjustment disorder with disturbance of emotion F43.29 Active 29246900 Problem Male erectile dysfunction, unspecified N52.9 Active 776865970 Problem Essential hypertension I10 Active 47806499 Problem Lumbago M54.5 Active 085648226 Problem Family history of diabetes mellitus Z83.3 Active 529062187 Problem Arthritis M19.90 Active 8391224 Problem Neuropathy G62.9 Active 670150347 Problem Encounter to establish care Z76.89 Active 965975465 Problem Hyperinsulinemia E16.1 Active 59773181 Problem Weight gain R63.5 Active 1034428 Problem Dysthymia F34.1 Active 95074714 ALLERGIES No Information ENCOUNTERS Encounter Location Date Diagnosis [facility] [id number] [address] Nov, [facility] [address], [place] [address] Sep, [facility] [id number], [place] [address] Sep, Hyperinsulinemia E16.1 and Male erectile dysfunction, unspecified N52.9 [facility] [id number] [place] [address] Aug, Mood disorder F39 [facility] [id number] [place] [address] Jul, Mood disorder F39 [facility] [address] [place] [id number] Jul, Mood disorder F39 [facility] [id number] [place] [address] May, [facility] [id number] [place] [address]38- 3555 May, [facility] [id number] [place] [address]85- 6065 Apr, [place] [address] [address] Mar, Hallux rigidus of right foot M20.21 [place] [id number] [place] [address]26- [address]27 Mar, Hyperinsulinemia E16.1 ; Essential hypertension I10 ; Male erectile dysfunction, unspecified N52.9 and Neuropathy G62.9 [place] [id number] [place] [address] 66[address]- 1386 Mar, Hammertoe of right foot M20.41 and Neuropathy G62.9 [place] [id number] [place] [address] 47[address]- 0030 Dec, Traumatic dislocation of right great toe, sequela S93.104S ; Hyperinsulinemia E16.1 ; Essential hypertension I10 ; Male erectile dysfunction, unspecified N52.9 and Neuropathy G62.9 [facility] [id number] [place] [address]12[address] 3241 Nov, [place] [id number] [place] [address] 90775- 2472 Nov, Pain of right great toe M79.674 [facility] [address] [id number] Nov, Pain of right great toe M79.674 [place] [id number] [place] [address] 03967- 5286 Nov, [place] [id number] [place] [address] 89849- 6[address] Nov, [facility] [address] [id number] Nov, Closed nondisplaced fracture of distal phalanx of right great toe with routine healing, subsequent encounter S92.424D ; Slow transit constipation K59.01 and Neuropathic pain M79.2 [place] [id number] [place] [address] 6[address]73- 45[address] Sep, Sprain of right great toe, initial encounter S93.501A [place] [address] [address] Sep, Dislocation of phalanx of foot, unspecified laterality, subsequent encounter S93.106D [place] [id number] [place] [address] 18605- 1282 Sep, [place] [id number] [place] [address] 59375- 5942 Sep, Male erectile dysfunction, unspecified N52.9 ; DM neuro manif type II E11.49 ; Essential hypertension I10 ; Dysthymia F34.1 and Subluxation of metatarsophalangeal joint of right great toe, subsequent encounter S93.141D [place] [id number] [place] [address] 78014- 4852 Jul, Right foot pain M79.671 [place] [id number] [place] [address] 81626- 5157 Jul, Adjustment disorder with disturbance of emotion F43.29 and 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 [place] [address] [address] Jul, Anxiety associated with depression F41.8 and Moderate episode of recurrent major depressive disorder F33.1 [place] [address] [address] Jul, DM neuro manif type II E11.49 ; Right foot pain M79.671 ; Moderate episode of recurrent major depressive disorder F33.1 ; Essential hypertension I10 and Neuropathy G62.9 [place] [address] [address] 359[address] June, Hallux rigidus of right foot M20.21 and DM neuro manif type II E11.49 [place] [address] 0[address]15- [address] May, Hyperhidrosis L74.519 ; Capsulitis of foot, right M77.51 and DM neuro manif type II E11.49 [place] [address] [address]- [address] Apr, Neuropathy G62.9 [place] [address] 41796- 78[address] Apr, Neuropathy G62.9 ; Essential hypertension I10 ; Arthritis M19.90 ; Hyperinsulinemia E16.1 and Moderate episode of recurrent major depressive disorder F33.1 [place] [address] [address]- [address] 06 Apr, 2016 Male erectile dysfunction, unspecified N52.9 [place] [address] 23515- [address] 15 Jan, 2016 Osteoarthritis of right knee, unspecified osteoarthritis type M17.11 [place] [address] [address]35[address] 14 Jan, 2016 Dysthymia F34.1 and Anxiety associated with depression F41.8 [place] [address] 6[address]41- [address] 07 Jan, 2016 Dysthymia F34.1 [address] [place] [address] [place] [address] 07 Jan, 2016 Essential hypertension I10 ; Neuropathy G62.9 and Dysthymia F34.1 [place] [address] 24717- [address] 20 Nov, 2015 Essential hypertension I10 ; Neuropathy G62.9 ; Arthritis M19.90 and Hyperinsulinemia E16.1 [place] [address] 14[address]- 4062 Nov, Neuropathy G62.9 and Essential hypertension I10 [place] [address] [address]24- [address] Oct, [place] [address] 59145- [address] Sep, Arthritis M19.90 and Neuropathy G62.9 [place] [address] 70051- [address] Aug, [place] [address] [address] Aug, Family history of diabetes mellitus Z83.3 ; Weight gain R63.5 and Essential hypertension I10 [place] [id number] [place] [address] 99070- 77[address] Aug, Encounter to establish care Z76.89 ; Essential hypertension I10 ; Male erectile dysfunction, unspecified N52.9 ; Family history of diabetes mellitus Z83.3 and Weight gain R63.5 [place] [id number] [place] [address] 89557- 3[address] 24 Jan, 2015 Hypogonadism in male E29.1 and Routine adult health maintenance Z00.00 [facility] [address] [address] Dec, Male erectile dysfunction, unspecified N52.9 [place] [id number] [place] [address] 65190- 5847 16 Nov, 2014 [place] [address] [address] Oct, Hypertension 401.9 [facility] [id number] [place] [address] 97654- 8335 Sep, Hypertension 401.9 and Rectal pain 569.42 [facility] [address] [place] [address] 96674- 4346 Sep, [facility] [id number] [place] [address] 11747- 5855 Sep, Impotence of organic origin 607.84 [place] [id number] [place] [address] 661776- 8695 Aug, Rectal pain 569.42 [place] [id number] [place] [address] 08818- 1412 Aug, Hypertension 401.9 and Rectal pain 569.42 [place] [id number] [place] [address] 13155- 0703 Jul, Impotence of organic origin 607.84 [place] [address] [place] [address] 64891- 2756 Jul, Impotence of organic origin 607.84 ; Blood in stool 578.1 and Elevated blood pressure reading without diagnosis of hypertension 796.2 [place] [address], [place] [address] June, Impotence of organic origin 607.84 [facility] [address], [place] [address] June, [place] [id number] [place] [address] 02123- 6751 June, [facility] [address] [address] June, Erectile dysfunction 607.84 [facility] [id number] [place] [address] 03275- 8866 14 May, 2014 [facility] [place] [facility] [address] [id number] [place] [address] 13 May, 2014 [facility] [place] [facility] [address] [id number] [place] [address] Apr, [facility] [place] [facility] [address] [id number] [place] [address] Apr, [facility] [place] [facility] [address] [id number] [place] [address] Apr, [facility] [place] [facility] [address] [id number] [place] [address] 4979 Apr, [facility] [place] [facility] [address] [id number] [place] [address] 6562 Apr, [facility] [place] [facility] [address] [id number] [place] [address] Apr, [facility] [place] [facility] [address] [id number] [place] [address] 8[address] Apr, [facility] [place] [facility] [address] [id number] [place] [address]- 8322 Apr, [facility] [place] [facility] [address] [id number] [place] [address]- 5[address] Apr, [facility] [place] [facility] [address] [id number] [place] [address] 59[address] Apr, [facility] [place] [facility] [address] [id number] [address] Apr, [facility] [place] [facility] [address] [id number] [place] [address]- 1355 Apr, [facility] [place] [facility] [address] [id number] [place] [address]- 9327 Apr, [facility] [place] [facility] [address] [id number] [place] [address]- 1658 Apr, [facility] [place] [facility] [address] [facility] [id number] [place] [address] Apr, [facility] [address] [facility] [id number] [place] [address] Mar, [facility] [address] [facility] [id number] [address] Mar, IMMUNIZATIONS No Known Immunizations SOCIAL HISTORY Never Assessed REASON FOR VISIT Refill request PLAN OF CARE VITAL SIGNS MEDICATIONS Unknown Medications RESULTS No Results PROCEDURES No Known procedures INSTRUCTIONS MEDICATIONS ADMINISTERED No Known Medications MEDICAL (GENERAL) HISTORY Type Description Date Medical History hypogonadism Medical History back pain Medical History hx of meth abuse Medical History hyperlipidemia Surgical History appy- pt was in 3rd grade Surgical History tonsilectomy age 10 Hospitalization History 3rd degree minor on legs 2010
--- OUTSIDE RECORDS SUMMARY | 2018-03-31 06:27 | XMS REPORT ---
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 Name Role Phone FUAD JAMES Unavailable PROBLEMS Type Condition ICD9-CM Code PFX54-AP Code Onset Dates Condition Status SNOMED Code Problem Anxiety associated with depression F41.8 Active 779772665 Problem DM neuro manif type II E11.49 Active 94672619 Problem Moderate episode of recurrent major depressive disorder F33.1 Active 586943037 Problem Mood disorder F39 Active 13565442 Problem Hammertoe of right foot M20.41 Active 605803310 Problem 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 53610996 Problem Hallux rigidus of right foot M20.21 Active 803932358 Problem Slow transit constipation K59.01 Active 68625187 Problem Adjustment disorder with disturbance of emotion F43.29 Active 87032838 Problem Male erectile dysfunction, unspecified N52.9 Active 069030384 Problem Essential hypertension I10 Active 54555476 Problem Lumbago M54.5 Active 555855494 Problem Family history of diabetes mellitus Z83.3 Active 805575757 Problem Arthritis M19.90 Active 3186943 Problem Neuropathy G62.9 Active 154592538 Problem Encounter to establish care Z76.89 Active 288010002 Problem Hyperinsulinemia E16.1 Active 63250605 Problem Weight gain R63.5 Active 8950309 Problem Dysthymia F34.1 Active 25053987 ALLERGIES No Information ENCOUNTERS Encounter Location Date Diagnosis [facility] [id number] [address] Oct, [facility] [address] [address] Sep, [facility] [address] [id number] [address] Sep, Hyperinsulinemia E16.1 and Male erectile dysfunction, unspecified N52.9 [facility] [address] [address] Aug, Mood disorder F39 [facility] [id number] [place] [address] 42846- 3226 Jul, Mood disorder F39 [facility] [address] [place] [id number] Jul, Mood disorder F39 [facility] [id number] [place] [address] 16788- 8488 May, [facility] [id number] [place] [address] 18756- 8640 May, [facility] [id number] [place] [address] 41501- 3551 Apr, [place] [id number] [place] [address] 72815- 3710 Mar, Hallux rigidus of right foot M20.21 [place] [id number] [place] [address] 39458- 4106 Mar, Hyperinsulinemia E16.1 ; Essential hypertension I10 ; Male erectile dysfunction, unspecified N52.9 and Neuropathy G62.9 [place] [address] [place] [address] 52537- 8945 Mar, Hammertoe of right foot M20.41 and Neuropathy G62.9 [place] [address] [place] [address] 12284- 5896 Dec, Traumatic dislocation of right great toe, sequela S93.104S ; Hyperinsulinemia E16.1 ; Essential hypertension I10 ; Male erectile dysfunction, unspecified N52.9 and Neuropathy G62.9 [place] [id number] [place] [address] 85132- 3837 Nov, [place] [id number] [place] [address] 95546- 2032 Nov, Pain of right great toe M79.674 [facility] [address] [place] [address] Nov, Pain of right great toe M79.674 [place] [id number] [place] [address] 23623- 0171 Nov, [place] [id number] [place] [address] 58825- 1475 Nov, [facility] [address] [place] [address] Nov, Closed nondisplaced fracture of distal phalanx of right great toe with routine healing, subsequent encounter S92.424D ; Slow transit constipation K59.01 and Neuropathic pain M79.2 [place] [address] 36184- 7730 Sep, Sprain of right great toe, initial encounter S93.501A [place] [address] 63450- 2732 Sep, Dislocation of phalanx of foot, unspecified laterality, subsequent encounter S93.106D [place] [id number] [place] [address] 21085- 0622 Sep, [place] [id number] [place] [address] 36304- 5256 Sep, Male erectile dysfunction, unspecified N52.9 ; DM neuro manif type II E11.49 ; Essential hypertension I10 ; Dysthymia F34.1 and Subluxation of metatarsophalangeal joint of right great toe, subsequent encounter S93.141D [place] [id number] [place] [address] 82588- 0289 Jul, Right foot pain M79.671 [place] [id number] [place] [address] 64603- 8029 Jul, Adjustment disorder with disturbance of emotion F43.29 and 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 [place] [id number] [place] [address] 31212- 9033 Jul, Anxiety associated with depression F41.8 and Moderate episode of recurrent major depressive disorder F33.1 [place] [id number] [place] [address] 96236- 9829 12 Jul, 2016 DM neuro manif type II E11.49 ; Right foot pain M79.671 ; Moderate episode of recurrent major depressive disorder F33.1 ; Essential hypertension I10 and Neuropathy G62.9 [place] [address] 50904- 0842 June, Hallux rigidus of right foot M20.21 and DM neuro manif type II E11.49 [place] [address] 94530- 1105 May, Hyperhidrosis L74.519 ; Capsulitis of foot, right M77.51 and DM neuro manif type II E11.49 [place] [address] 67512- 8439 16 Apr, 2016 Neuropathy G62.9 [place] [address] 59137- 9949 Apr, Neuropathy G62.9 ; Essential hypertension I10 ; Arthritis M19.90 ; Hyperinsulinemia E16.1 and Moderate episode of recurrent major depressive disorder F33.1 [place] [id number] [place] [address] 78530- 7287 06 Apr, 2016 Male erectile dysfunction, unspecified N52.9 [place] [id number] [place] [address] 27615- 4548 15 Jan, 2016 Osteoarthritis of right knee, unspecified osteoarthritis type M17.11 [place] [id number] [place] [address] 44757- 0877 14 Jan, 2016 Dysthymia F34.1 and Anxiety associated with depression F41.8 [place] [id number] [place] [address] 50686- 4211 07 Jan, 2016 Dysthymia F34.1 [place] [address] 44752- 4640 Jan, Essential hypertension I10 ; Neuropathy G62.9 and Dysthymia F34.1 [place] [address] 40253- 5193 Nov, Essential hypertension I10 ; Neuropathy G62.9 ; Arthritis M19.90 and Hyperinsulinemia E16.1 [place] [address] 47517- 4858 Nov, Neuropathy G62.9 and Essential hypertension I10 [place] [address] 54347- 7616 Oct, [place] [address] 09983- 8396 Sep, Arthritis M19.90 and Neuropathy G62.9 [place] [address] 56120- 6705 Aug, [place] [address] 62548- 3849 Aug, Family history of diabetes mellitus Z83.3 ; Weight gain R63.5 and Essential hypertension I10 [place] [address] 15777- 9239 Aug, Encounter to establish care Z76.89 ; Essential hypertension I10 ; Male erectile dysfunction, unspecified N52.9 ; Family history of diabetes mellitus Z83.3 and Weight gain R63.5 [place] [id number] [place] [address] 28241- 7554 Jan, Hypogonadism in male E29.1 and Routine adult health maintenance Z00.00 [facility] [address] 9[address]36 -1355 Dec, Male erectile dysfunction, unspecified N52.9 [place] [address] 01925- 7954 16 Nov, 2014 [place] [address] 140748- 8552 Oct, Hypertension 401.9 [facility] [address] [address] Sep, Hypertension 401.9 and Rectal pain 569.42 [facility] [address] [address] Sep, [facility] [id number] [place] [address] 227027- 9645 Sep, Impotence of organic origin 607.84 [facility] [address] [place] [address] 991366- 9570 Aug, Rectal pain 569.42 [place] [id number] [place] [address] 672138- 3561 Aug, Hypertension 401.9 and Rectal pain 569.42 [place] [id number] [address]- 5969 Jul, Impotence of organic origin 607.84 [place] [address] [address] 7749 Jul, Impotence of organic origin 607.84 ; Blood in stool 578.1 and Elevated blood pressure reading without diagnosis of hypertension 796.2 [place] [address] [address] 8[address] June, Impotence of organic origin 607.84 [place] [address] [address] June, [facility] [address] [address] June, [facility] [address] June, Erectile dysfunction 607.84 [facility] [address] [address] May, [facility] [place] [facility] [address] [id number] [place] [address]- 6513 13 May, 2014 [facility] [place] [facility] [address] [id number] [place] [address]- 5530 Apr, [facility] [place] [facility] [address] [id number] [place] [address]- 6969 Apr, [facility] [place] [facility] [address] [id number] [place] [address]- 4503 Apr, [facility] [place] [facility] [address] [id number] [place] [address]- 3000 Apr, [facility] [place] [facility] [address] [id number] [place] [address]- 0836 Apr, [facility] [place] [facility] [address] [id number] [place] [address]- 4344 Apr, [facility] [place] [facility] [address] [id number] [place] [address]- 4724 Apr, [facility] [place] [facility] [address] [id number] [place] [address]- 9097 Apr, [facility] [place] [facility] [address] [id number] [place] [address]- 9145 Apr, [facility] [place] [facility] [address] [id number] [place] [address]- 2873 Apr, [facility] [place] [facility] [address] [id number] [place] [address]- 4471 Apr, [facility] [place] [facility] [address] [id number] [place] [address]- 9068 Apr, [facility] [place] [facility] [address] [id number] [place] [address]- 0705 Apr, [facility] [place] [facility] [address] [id number] [place] [address]- 6139 Apr, [facility] [place] [facility] [address] [id number] [place] [address]- 2546 Apr, [facility] [address] [facility] [id number] [place] [address]- 2546 Mar, [facility] [address] [facility] [id number] [place] [address]- 2546 Mar, IMMUNIZATIONS No Known Immunizations SOCIAL HISTORY Never Assessed REASON FOR VISIT senior care rx PLAN OF CARE VITAL SIGNS MEDICATIONS Medication Instructions Dosage Frequency Start Date End Date Duration Status Trazodone HCl 150 MG Orally Once a day 1 tablet at bedtime as needed 24h Sep, 14 days Active RESULTS No Results PROCEDURES No [...]
--- OUTSIDE RECORDS SUMMARY | 2018-03-31 06:27 | XMS REPORT ---
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 39632641 Problem Hallux rigidus of right foot M20.21 Active 975607142 Problem Slow transit constipation K59.01 Active 39419732 Problem Adjustment disorder with disturbance of emotion F43.29 Active 96527547 Problem Male erectile dysfunction, unspecified N52.9 Active 190287255 Problem Essential hypertension I10 Active 74459065 Problem Lumbago M54.5 Active 519520828 Problem Family history of diabetes mellitus Z83.3 Active 494386501 Problem Arthritis M19.90 Active 3214129 Problem Neuropathy G62.9 Active 733383080 Problem Encounter to establish care Z76.89 Active 305366101 Problem Hyperinsulinemia E16.1 Active 36772572 Problem Weight gain R63.5 Active 6636906 Problem Dysthymia F34.1 Active 92500273 ALLERGIES No Information ENCOUNTERS Encounter Location Date Diagnosis [facility] [address] [id number], [place] [address] Nov, [facility] [address], [place] [address]- 5[address] Sep, [facility] [id number], [place] [address]- 2844 Sep, Hyperinsulinemia E16.1 and Male erectile dysfunction, unspecified N52.9 [facility] [id number] [place] [address] 88034- 0401 Aug, Mood disorder F39 [facility] [id number] [place] [address] 56459- 7753 Jul, Mood disorder F39 [facility] [address] [place] [id number] Jul, Mood disorder F39 [facility] [id number] [place] [address] 09121- 2339 May, [facility] [id number] [place] [address] 45274- 5409 May, [facility] [id number] [place] [address] 57923- 4245 Apr, [place] [address] 58661- 4257 Mar, Hallux rigidus of right foot M20.21 [place] [id number] [place] [address] 03589- 3805 Mar, Hyperinsulinemia E16.1 ; Essential hypertension I10 ; Male erectile dysfunction, unspecified N52.9 and Neuropathy G62.9 [place] [id number] [place] [address] 12882- 4642 Mar, Hammertoe of right foot M20.41 and Neuropathy G62.9 [place] [id number] [place] [address] 31068- 7255 Dec, Traumatic dislocation of right great toe, sequela S93.104S ; Hyperinsulinemia E16.1 ; Essential hypertension I10 ; Male erectile dysfunction, unspecified N52.9 and Neuropathy G62.9 [facility] [id number] [place] [address] 78988- 3416 Nov, [place] [id number] [place] [address] 30948- 1471 Nov, Pain of right great toe M79.674 [facility] [address] [place] [address] Nov, Pain of right great toe M79.674 [place] [id number] [place] [address] 67630- 9750 Nov, [place] [id number] [place] [address] 08610- 0133 Nov, [facility] [address] [place] [address] Nov, Closed nondisplaced fracture of distal phalanx of right great toe with routine healing, subsequent encounter S92.424D ; Slow transit constipation K59.01 and Neuropathic pain M79.2 [place] [id number] [place] [address] 85704- 1918 Sep, Sprain of right great toe, initial encounter S93.501A [place] [address] 86718- 3844 Sep, Dislocation of phalanx of foot, unspecified laterality, subsequent encounter S93.106D [place] [id number] [place] [address] 70592- 8689 Sep, [place] [id number] [place] [address] 12501- 7021 Sep, Male erectile dysfunction, unspecified N52.9 ; DM neuro manif type II E11.49 ; Essential hypertension I10 ; Dysthymia F34.1 and Subluxation of metatarsophalangeal joint of right great toe, subsequent encounter S93.141D [place] [id number] [place] [address] 11651- 4635 Jul, Right foot pain M79.671 [place] [id number] [place] [address] 72281- 4193 Jul, Adjustment disorder with disturbance of emotion F43.29 and 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 [place] [address] 48096- 3183 Jul, Anxiety associated with depression F41.8 and Moderate episode of recurrent major depressive disorder F33.1 [place] [address] 67948- 9234 Jul, DM neuro manif type II E11.49 ; Right foot pain M79.671 ; Moderate episode of recurrent major depressive disorder F33.1 ; Essential hypertension I10 and Neuropathy G62.9 [place] [address] 56048- 2119 June, Hallux rigidus of right foot M20.21 and DM neuro manif type II E11.49 [place] [address] 06829- 0207 May, Hyperhidrosis L74.519 ; Capsulitis of foot, right M77.51 and DM neuro manif type II E11.49 [place] [address] 06603- 0739 Apr, Neuropathy G62.9 [place] [address] 40431- 1121 Apr, Neuropathy G62.9 ; Essential hypertension I10 ; Arthritis M19.90 ; Hyperinsulinemia E16.1 and Moderate episode of recurrent major depressive disorder F33.1 [place] [address] 94348- 0290 06 Apr, 2016 Male erectile dysfunction, unspecified N52.9 [place] [address] 34240- 0314 15 Jan, 2016 Osteoarthritis of right knee, unspecified osteoarthritis type M17.11 [place] [address] 95723- 7508 14 Jan, 2016 Dysthymia F34.1 and Anxiety associated with depression F41.8 [place] [address] 95109- 2638 07 Jan, 2016 Dysthymia F34.1 [place] [address] [place] [address]- 7903 07 Jan, 2016 Essential hypertension I10 ; Neuropathy G62.9 and Dysthymia F34.1 [place] [address] 14866- 0062 20 Nov, 2015 Essential hypertension I10 ; Neuropathy G62.9 ; Arthritis M19.90 and Hyperinsulinemia E16.1 [place] [address] 44607- 8725 Nov, Neuropathy G62.9 and Essential hypertension I10 [place] [address] 73202- 4566 Oct, [place] [address] 51817- 0723 Sep, Arthritis M19.90 and Neuropathy G62.9 [place] [address] 08450- 3323 Aug, [place] [address] 40483- 6109 Aug, Family history of diabetes mellitus Z83.3 ; Weight gain R63.5 and Essential hypertension I10 [place] [id number] [place] [address] 59193- 2756 Aug, Encounter to establish care Z76.89 ; Essential hypertension I10 ; Male erectile dysfunction, unspecified N52.9 ; Family history of diabetes mellitus Z83.3 and Weight gain R63.5 [place] [id number] [place] [address] 16281- 4240 24 Jan, 2015 Hypogonadism in male E29.1 and Routine adult health maintenance Z00.00 [facility] [address] [address]23 -0129 Dec, Male erectile dysfunction, unspecified N52.9 [place] [id number] [place] [address] 68688- 6659 16 Nov, 2014 [place] [address] [address]19 Oct, Hypertension 401.9 [facility] [id number] [place] [address] 69497- 9647 Sep, Hypertension 401.9 and Rectal pain 569.42 [facility] [address] [place] [address] 36887- 1698 Sep, [facility] [id number] [place] [address] 30482- 0654 Sep, Impotence of organic origin 607.84 [place] [id number] [place] [address] 948532- 4549 Aug, Rectal pain 569.42 [place] [id number] [place] [address] 81148- 6497 Aug, Hypertension 401.9 and Rectal pain 569.42 [place] [id number] [place] [address] 14402- 6663 Jul, Impotence of organic origin 607.84 [place] [address] [place] [address] 80660- 4437 Jul, Impotence of organic origin 607.84 ; Blood in stool 578.1 and Elevated blood pressure reading without diagnosis of hypertension 796.2 [place] [address], [place] [address]- 6903 June, Impotence of organic origin 607.84 [facility] [address], [place] [address]- 3834 June, [place] [id number] [place] [address] 10796- 4270 June, [facility] [address] [address] 6955 June, Erectile dysfunction 607.84 [facility] [id number] [place] [address] 41972- 9301 14 May, 2014 [facility] [place] [facility] [address] [id number] [place] [address]- 1514 13 May, 2014 [facility] [place] [facility] [address] [id number] [place] [address]- 4897 Apr, [facility] [place] [facility] [address] [id number] [place] [address]- 0148 Apr, [facility] [place] [facility] [address] [id number] [place] [address]- 4109 Apr, [facility] [place] [facility] [address] [id number] [place] [address]- 7971 Apr, [facility] [place] [facility] [address] [id number] [place] [address]- 1222 Apr, [facility] [place] [facility] [address] [id number] [place] [address]- 5043 Apr, [facility] [place] [facility] [address] [id number] [place] [address]- 8273 Apr, [facility] [place] [facility] [address] [id number] [place] [address]- 0892 Apr, [facility] [place] [facility] [address] [id number] [place] [address]- 9096 Apr, [facility] [place] [facility] [address] [id number] [place] [address]- 7052 Apr, [facility] [place] [facility] [address] [id number] [address]- 6235 Apr, [facility] [place] [facility] [address] [id number] [place] [address]- 0777 Apr, [facility] [place] [facility] [address] [id number] [place] [address]- 1510 Apr, [facility] [place] [facility] [address] [id number] [place] [address]- 2942 Apr, [facility] [place] [facility] [address] [facility] [id number] [place] [address]- 6826 Apr, [facility] [address] [facility] [id number] [place] [address]- 4460 Mar, [facility] [address] [facility] [id number] [address]- 5688 Mar, IMMUNIZATIONS No Known Immunizations SOCIAL HISTORY Never Assessed REASON FOR VISIT Medication refill request PLAN OF CARE VITAL SIGNS MEDICATIONS Medication Instructions Dosage Frequency Start Date End Date Duration Status Viagra 100 mg Orally PRN 1 tablet as needed 30 days Active Metformin HCl 500 mg Orally 2 times a day 1 tablet 12h 30 days Active RESULTS No Results PROCEDURES [...]
--- OUTSIDE RECORDS SUMMARY | 2018-03-31 06:27 | XMS REPORT ---
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 02994827 Problem Hallux rigidus of right foot M20.21 Active 405525149 Problem Slow transit constipation K59.01 Active 68618703 Problem Adjustment disorder with disturbance of emotion F43.29 Active 97096460 Problem Male erectile dysfunction, unspecified N52.9 Active 871724948 Problem Essential hypertension I10 Active 25267298 Problem Lumbago M54.5 Active 545366514 Problem Family history of diabetes mellitus Z83.3 Active 353913374 Problem Arthritis M19.90 Active 8896584 Problem Neuropathy G62.9 Active 192689721 Problem Encounter to establish care Z76.89 Active 686400985 Problem Hyperinsulinemia E16.1 Active 60778502 Problem Weight gain R63.5 Active 0613863 Problem Dysthymia F34.1 Active 53149553 ALLERGIES No Known Allergies ENCOUNTERS Encounter Location Date Diagnosis [facility] [address] [facility] [id number] [address] Oct, [facility] [address] [id number], [place] [address] Sep, [facility] [address] [facility] [id number], [place] [address] Sep, Hyperinsulinemia E16.1 and Male erectile dysfunction, unspecified N52.9 [facility] [address], [place] [address] Aug, Mood disorder F39 [facility] [id number] [place] [address] 43162- 8719 Jul, Mood disorder F39 [facility] [address] [place] [id number] Jul, Mood disorder F39 [facility] [id number] [place] [address] 50148- 3292 May, [facility] [id number] [place] [address] 62454- 3065 May, [facility] [id number] [place] [address] 41003- 2887 Apr, [place] [id number] [place] [address] 24753- 0972 Mar, Hallux rigidus of right foot M20.21 [place] [id number] [place] [address] 09577- 1224 Mar, Hyperinsulinemia E16.1 ; Essential hypertension I10 ; Male erectile dysfunction, unspecified N52.9 and Neuropathy G62.9 [place] [address] [place] [address] 95407- 6983 Mar, Hammertoe of right foot M20.41 and Neuropathy G62.9 [place] [address] [place] [address] 34803- 2903 Dec, Traumatic dislocation of right great toe, sequela S93.104S ; Hyperinsulinemia E16.1 ; Essential hypertension I10 ; Male erectile dysfunction, unspecified N52.9 and Neuropathy G62.9 [place] [id number] [place] [address] 25419- 4540 Nov, [place] [id number] [place] [address] 22265- 4997 Nov, Pain of right great toe M79.674 [facility] [address] [place] [id number] Nov, Pain of right great toe M79.674 [place] [id number] [place] [address] 10977- 8946 Nov, [place] [id number] [place] [address] 97546- 8233 Nov, [facility] [address] [place] [id number] Nov, Closed nondisplaced fracture of distal phalanx of right great toe with routine healing, subsequent encounter S92.424D ; Slow transit constipation K59.01 and Neuropathic pain M79.2 [place] [address] 74002- 2118 Sep, Sprain of right great toe, initial encounter S93.501A [place] [address] 27487- 4566 Sep, Dislocation of phalanx of foot, unspecified laterality, subsequent encounter S93.106D [place] [id number] [place] [address] 13739- 5943 Sep, [place] [id number] [place] [address] 95261- 3750 Sep, Male erectile dysfunction, unspecified N52.9 ; DM neuro manif type II E11.49 ; Essential hypertension I10 ; Dysthymia F34.1 and Subluxation of metatarsophalangeal joint of right great toe, subsequent encounter S93.141D [place] [id number] [place] [address] 44893- 1094 Jul, Right foot pain M79.671 [place] [id number] [place] [address] 32962- 3414 Jul, Adjustment disorder with disturbance of emotion F43.29 and 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 [place] [id number] [place] [address] 79170- 1286 Jul, Anxiety associated with depression F41.8 and Moderate episode of recurrent major depressive disorder F33.1 [place] [id number] [place] [address] 08394- 1801 Jul, DM neuro manif type II E11.49 ; Right foot pain M79.671 ; Moderate episode of recurrent major depressive disorder F33.1 ; Essential hypertension I10 and Neuropathy G62.9 [place] [address] 01526- 8949 June, Hallux rigidus of right foot M20.21 and DM neuro manif type II E11.49 [place] [address] 85027- 9457 May, Hyperhidrosis L74.519 ; Capsulitis of foot, right M77.51 and DM neuro manif type II E11.49 [place] [id number] [place] [address] 84964- 6687 16 Apr, 2016 Neuropathy G62.9 [place] [id number] [place] [address] 56712- 0152 Apr, Neuropathy G62.9 ; Essential hypertension I10 ; Arthritis M19.90 ; Hyperinsulinemia E16.1 and Moderate episode of recurrent major depressive disorder F33.1 [place] [id number] [place] [address] 38994- 2052 06 Apr, 2016 Male erectile dysfunction, unspecified N52.9 [place] [id number] [place] [address] 45647- 8329 15 Jan, 2016 Osteoarthritis of right knee, unspecified osteoarthritis type M17.11 [place] [id number] [place] [address] 74381- 1045 14 Jan, 2016 Dysthymia F34.1 and Anxiety associated with depression F41.8 [place] [id number] [place] [address] 00758- 9700 07 Jan, 2016 Dysthymia F34.1 [place] [id number] [place] [address] 64717- 4747 Jan, Essential hypertension I10 ; Neuropathy G62.9 and Dysthymia F34.1 [place] [address] 83374- 2026 Nov, Essential hypertension I10 ; Neuropathy G62.9 ; Arthritis M19.90 and Hyperinsulinemia E16.1 [place] [address] 23749- 0175 Nov, Neuropathy G62.9 and Essential hypertension I10 [place] [address] 27928- 5917 Oct, [place] [address] 66577- 2540 Sep, Arthritis M19.90 and Neuropathy G62.9 [place] [address] 85588- 5420 Aug, [place] [address] 24230- 6759 Aug, Family history of diabetes mellitus Z83.3 ; Weight gain R63.5 and Essential hypertension I10 [place] [address] 97644- 7429 Aug, Encounter to establish care Z76.89 ; Essential hypertension I10 ; Male erectile dysfunction, unspecified N52.9 ; Family history of diabetes mellitus Z83.3 and Weight gain R63.5 [place] [id number] [place] [address] 88023- 4653 Jan, Hypogonadism in male E29.1 and Routine adult health maintenance Z00.00 [facility] [address] 65235 -3110 Dec, Male erectile dysfunction, unspecified N52.9 [place] [id number] [place] [address] 05237- 6497 16 Nov, 2014 [place] [address] 19698- 5424 Oct, Hypertension 401.9 [place] [address] [address] Sep, Hypertension 401.9 and Rectal pain 569.42 [facility] [address] [address] Sep, [place] [id number] [place] [address] 183104- 2413 Sep, Impotence of organic origin 607.84 [place] [address] [place] [address] 730745- 6777 Aug, Rectal pain 569.42 [place] [id number] [place] [address] 406816- 8161 Aug, Hypertension 401.9 and Rectal pain 569.42 [place] [id number] [place] [address] 18339- 7632 Jul, Impotence of organic origin 607.84 [place] [address], [place] [address] 3427 Jul, Impotence of organic origin 607.84 ; Blood in stool 578.1 and Elevated blood pressure reading without diagnosis of hypertension 796.2 [place] [address], [place] [address] 8041 June, Impotence of organic origin 607.84 [place] [address], [place] [address]- 1065 June, [place] [id number] [place] [address] 552291- 8358 June, [place] [address] [place] [address] 53000936- 3910 June, Erectile dysfunction 607.84 [place] [address] [address] May, [facility] [place] [facility] [address] [id number] [place] [address]- 3853 13 May, 2014 [facility] [place] [facility] [address] [id number] [place] [address]- 1559 Apr, [facility] [place] [facility] [address] [id number] [place] [address]- 6849 Apr, [facility] [place] [facility] [address] [id number] [place] [address]- 0219 Apr, [facility] [place] [facility] [address] [id number] [place] [address]- 4612 Apr, [facility] [place] [facility] [address] [id number] [place] [address]- 1425 Apr, [facility] [place] [facility] [address] [id number] [place] [address]- 2440 Apr, [facility] [place] [facility] [address] [id number] [place] [address]- 0107 Apr, [facility] [place] [facility] [address] [id number] [place] [address]- 0660 Apr, [facility] [place] [facility] [address] [id number] [place] [address]- 4162 Apr, [facility] [place] [facility] [address] [id number] [place] [address]- 7907 Apr, [facility] [place] [facility] [address] [id number] [place] [address]- 8821 Apr, [facility] [place] [facility] [address] [id number] [place] [address]- 5455 Apr, [facility] [place] [facility] [address] [id number] [place] [address]- 3790 Apr, [facility] [place] [facility] [address] [id number] [place] [address]- 1019 Apr, [facility] [place] [facility] [address] [id number] [place] [address]- 2546 Apr, [facility] [address] [facility] [id number] [place] [address]- 2546 Mar, [facility] [address] [facility] [id number], [place] [address]- 2546 Mar, IMMUNIZATIONS No Known Immunizations SOCIAL HISTORY Never Assessed REASON FOR VISIT care home rx PLAN OF CARE VITAL SIGNS MEDICATIONS Medication Instructions Dosage Frequency Start Date End Date Duration Status Seroquel 50 mg Orally at bedtime 1 tablet Aug, 30 day(s) Active RESULTS No Results PROCEDURES No Known [...]
--- OUTSIDE RECORDS SUMMARY | 2018-03-31 06:28 | XMS REPORT ---
Author Author KALPESH ARTEAGA Organization [facility] Address [address] [place] [address] Care Team Providers Care Window Shade Ring Coverer Name Role Phone KALPESH ARTEAGA Unavailable PROBLEMS Type Condition ICD9-CM Code ATB45-RN Code Onset Dates Condition Status SNOMED Code Problem Anxiety associated with depression F41.8 Active 000369130 Problem DM neuro manif type II E11.49 Active 21424604 Problem Moderate episode of recurrent major depressive disorder F33.1 Active 835672909 Problem Mood disorder F39 Active 33454186 Problem Hammertoe of right foot M20.41 Active 938399565 Problem 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 25717722 Problem Hallux rigidus of right foot M20.21 Active 199521521 Problem Slow transit constipation K59.01 Active 44251939 Problem Adjustment disorder with disturbance of emotion F43.29 Active 44859969 Problem Male erectile dysfunction, unspecified N52.9 Active 266937914 Problem Essential hypertension I10 Active 08043731 Problem Lumbago M54.5 Active 743585557 Problem Family history of diabetes mellitus Z83.3 Active 920089181 Problem Arthritis M19.90 Active 9534488 Problem Neuropathy G62.9 Active 764674482 Problem Encounter to establish care Z76.89 Active 422394758 Problem Hyperinsulinemia E16.1 Active 45438183 Problem Weight gain R63.5 Active 2205227 Problem Dysthymia F34.1 Active 09334268 ALLERGIES No Information ENCOUNTERS Encounter Location Date Diagnosis [facility] [id number], [place] [address] 67[address] Jul, Mood disorder F39 [facility] [address] [place] [id number] Jul, Mood disorder F39 [facility] [address] [id number], [place] [address]- 3762 May, [place] [address] [place] [address] 46542- 9715 May, [place] [id number] [place] [address] 01479- 9018 Apr, [place] [id number] [place] [address] 36449- 8098 Mar, Hallux rigidus of right foot M20.21 [place] [address] 80652- 6224 Mar, Hyperinsulinemia E16.1 ; Essential hypertension I10 ; Male erectile dysfunction, unspecified N52.9 and Neuropathy G62.9 [place] [id number] [place] [address] 68918- 8102 Mar, Hammertoe of right foot M20.41 and Neuropathy G62.9 [place] [address] 87150- 1908 Dec, Traumatic dislocation of right great toe, sequela S93.104S ; Hyperinsulinemia E16.1 ; Essential hypertension I10 ; Male erectile dysfunction, unspecified N52.9 and Neuropathy G62.9 [place] [id number] [place] [address] 58322- 0573 Nov, [place] [id number] [place] [address] 16370- 5019 Nov, Pain of right great toe M79.674 [facility] [address] [place] [id number] Nov, Pain of right great toe M79.674 [place] [id number] [place] [address] 05158- 0448 Nov, [place] [id number] [place] [address] 10003- 6734 Nov, [facility] [address] [place] [id number] Nov, Closed nondisplaced fracture of distal phalanx of right great toe with routine healing, subsequent encounter S92.424D ; Slow transit constipation K59.01 and Neuropathic pain M79.2 [place] [id number] [place] [address] 67497- 3893 Sep, Sprain of right great toe, initial encounter S93.501A [place] [id number] [place] [address] 51443- 6711 Sep, Dislocation of phalanx of foot, unspecified laterality, subsequent encounter S93.106D [place] [address] 06159- 3074 Sep, [place] [address] 44778- 2447 Sep, Male erectile dysfunction, unspecified N52.9 ; DM neuro manif type II E11.49 ; Essential hypertension I10 ; Dysthymia F34.1 and Subluxation of metatarsophalangeal joint of right great toe, subsequent encounter S93.141D [place] [address] 60523- 8237 Jul, Right foot pain M79.671 [place] [address] 60174- 8926 Jul, Adjustment disorder with disturbance of emotion F43.29 and 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21 and DM neuro manif type II E11.49 [place] [id number] [place] [address] 29845- 6863 07 May, 2016 Hyperhidrosis L74.519 ; Capsulitis of foot, right M77.51 and DM neuro manif type II E11.49 [place] [id number] [place] [address] 80466- 2132 16 Apr, 2016 Neuropathy G62.9 [place] [address] 17625- 4433 15 Apr, 2016 Neuropathy G62.9 ; Essential hypertension I10 ; Arthritis M19.90 ; Hyperinsulinemia E16.1 and Moderate episode of recurrent major depressive disorder F33.1 [place] [id number] [place] [address] 95676- 0848 06 Apr, 2016 Male erectile dysfunction, unspecified N52.9 [place] [address] 18139- 9459 15 Jan, 2016 Osteoarthritis of right knee, unspecified osteoarthritis type M17.11 [place] [id number] [place] [address] 13520- 1975 14 Jan, 2016 Dysthymia F34.1 and Anxiety associated with depression F41.8 [place] [id number] [place] [address] 53204- 9208 07 Jan, 2016 Dysthymia F34.1 [place] [id number] [place] [address] 04455- 3449 07 Jan, 2016 Essential hypertension I10 ; Neuropathy G62.9 and Dysthymia F34.1 [place] [id number] [place] [address] 52465- 4928 20 Nov, 2015 Essential hypertension I10 ; Neuropathy G62.9 ; Arthritis M19.90 and Hyperinsulinemia E16.1 [place] [id number] [place] [address] 73894- 5897 13 Nov, 2015 Neuropathy G62.9 and Essential hypertension I10 [place] [address] [place] [address]- 6881 07 Oct, 2015 [facility] [id number] [place] [address] 37293- 7127 Sep, Arthritis M19.90 and Neuropathy G62.9 [facility] [id number] [place] [address] 41702- 4265 Aug, [place] [id number] [place] [address] 08383- 3367 Aug, Family history of diabetes mellitus Z83.3 ; Weight gain R63.5 and Essential hypertension I10 [place] [id number] [place] [address] 97051- 4703 Aug, Encounter to establish care Z76.89 ; Essential hypertension I10 ; Male erectile dysfunction, unspecified N52.9 ; Family history of diabetes mellitus Z83.3 and Weight gain R63.5 [place] [id number] [place] [address] 08112- 3499 Jan, Hypogonadism in male E29.1 and Routine adult health maintenance Z00.00 [facility] [id number] [place] [address] 63488 -6982 Dec, Male erectile dysfunction, unspecified N52.9 [place] [id number] [place] [address] 74398- 4150 Nov, [place] [id number] [place] [address] 66247- 9785 Oct, Hypertension 401.9 [place] [address] [place] [address] 69154- 5161 Sep, Hypertension 401.9 and Rectal pain 569.42 [place] [address] [place] [address] 02168- 2422 Sep, [place] [address] [place] [address] 58754- 9591 Sep, Impotence of organic origin 607.84 [place] [address], [place] [address]- 3506 Aug, Rectal pain 569.42 [facility] [address], [place] [address]- 6966 Aug, Hypertension 401.9 and Rectal pain 569.42 [facility] [address], [place] [address]- 1666 Jul, Impotence of organic origin 607.84 [facility] [address] 3809 Jul, Impotence of organic origin 607.84 ; Blood in stool 578.1 and Elevated blood pressure reading without diagnosis of hypertension 796.2 [facility] [address], [place] [address]- 3109 June, Impotence of organic origin 607.84 [facility] [address], [place] [address]- 8663 June, [facility] [address], [place] [address]- 1525 June, [facility] [address], [place] [address]- 6727 June, Erectile dysfunction 607.84 [facility] [address], [place] [address]- 8237 May, [facility] [address], [place] [address]- 4864 May, [facility] [address] 8045 Apr, [facility] [address] 8591 Apr, [facility] [address] 8086 Apr, [facility] [id number], [place] [address]- 3395 Apr, [facility] [address] [facility] [id number] [address]- 9890 Apr, [facility] [address] [facility] [id number], [place] [address]- 7166 Apr, [facility] [address] [facility] [id number], [place] [address]- 9061 Apr, [facility] [address] [facility] [id number], [place] [address]- 5256 Apr, [facility] [address], [place] [address]- 0962 Apr, [facility] [address], [place] [address]- 5191 Apr, [facility] [address], [place] [address]- 2705 Apr, [facility] [address], [place] [address]- 8973 Apr, [facility] [address], [place] [address]- 5549 Apr, [facility] [address], [place] [address]- 2161 Apr, [facility] [address], [place] [address]- 4399 Apr, [facility] [id number], [place] [address]- 2122 Mar, [facility] [address] 3927 Mar, IMMUNIZATIONS No Known Immunizations SOCIAL HISTORY Never Assessed REASON FOR VISIT Refill request PLAN OF CARE VITAL SIGNS MEDICATIONS Medication Instructions Dosage Frequency Start Date End Date Duration Status Trazodone HCl 50 MG Orally Once a day 1 tablet at bedtime as needed 24h Sep, 90 days Active RESULTS No Results PROCEDURES No [...]
--- OUTSIDE RECORDS SUMMARY | 2018-03-31 06:28 | XMS REPORT ---
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 18625804 Problem Hallux rigidus of right foot M20.21 Active 918629362 Problem Slow transit constipation K59.01 Active 14145048 Problem Adjustment disorder with disturbance of emotion F43.29 Active 97649236 Problem Male erectile dysfunction, unspecified N52.9 Active 143903248 Problem Essential hypertension I10 Active 75410002 Problem Lumbago M54.5 Active 272559372 Problem Family history of diabetes mellitus Z83.3 Active 872823242 Problem Arthritis M19.90 Active 7197059 Problem Neuropathy G62.9 Active 555660436 Problem Encounter to establish care Z76.89 Active 765153997 Problem Hyperinsulinemia E16.1 Active 32558214 Problem Weight gain R63.5 Active 1502238 Problem Dysthymia F34.1 Active 80382072 ALLERGIES No Information ENCOUNTERS Encounter Location Date Diagnosis [facility] [address] [facility] [id number] [address] Aug, Mood disorder F39 [facility] [address] [id number] [address] Jul, Mood disorder F39 [facility] [address] [place] [id number] Jul, Mood disorder F39 [facility] [address], [place] [address] May, [facility] [id number] [place] [address] 44235- 8212 May, [facility] [address] [place] [address] 73486- 8860 Apr, [facility] [id number] [place] [address] 31461- 5419 Mar, Hallux rigidus of right foot M20.21 [place] [id number] [place] [address] 39551- 2522 Mar, Hyperinsulinemia E16.1 ; Essential hypertension I10 ; Male erectile dysfunction, unspecified N52.9 and Neuropathy G62.9 [place] [id number] [place] [address] 64025- 2274 Mar, Hammertoe of right foot M20.41 and Neuropathy G62.9 [place] [address] [place] [address] 78011- 0789 Dec, Traumatic dislocation of right great toe, sequela S93.104S ; Hyperinsulinemia E16.1 ; Essential hypertension I10 ; Male erectile dysfunction, unspecified N52.9 and Neuropathy G62.9 [place] [address], [place] [address] 97[address] Nov, [place] [address] [place] [address] 94034- 6292 Nov, Pain of right great toe M79.674 [facility] [address] [place] [id number] Nov, Pain of right great toe M79.674 [facility] [address] [place] [address] 48987- 6846 Nov, [facility] [address], [place] [address] 1392 Nov, [facility] [address] [id number] Nov, Closed nondisplaced fracture of distal phalanx of right great toe with routine healing, subsequent encounter S92.424D ; Slow transit constipation K59.01 and Neuropathic pain M79.2 [place] [id number] [place] [address] 35995- 0676 Sep, Sprain of right great toe, initial encounter S93.501A [place] [address] 20993- 2939 Sep, Dislocation of phalanx of foot, unspecified laterality, subsequent encounter S93.106D [place] [address] 32503- 3771 Sep, [place] [address] 21723- 9511 Sep, Male erectile dysfunction, unspecified N52.9 ; DM neuro manif type II E11.49 ; Essential hypertension I10 ; Dysthymia F34.1 and Subluxation of metatarsophalangeal joint of right great toe, subsequent encounter S93.141D [place] [address] 44612- 0074 Jul, Right foot pain M79.671 [place] [address] 25267- 9352 Jul, Adjustment disorder with disturbance of emotion F43.29 and 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 [place] [address] 20140- 4182 12 Jul, 2016 Anxiety associated with depression F41.8 and Moderate episode of recurrent major depressive disorder F33.1 [place] [address] 85441- 9167 Jul, DM neuro manif type II E11.49 ; Right foot pain M79.671 ; Moderate episode of recurrent major depressive disorder F33.1 ; Essential hypertension I10 and Neuropathy G62.9 [place] [address] [place] [address]- 8721 12 Jun, 2016 Hallux rigidus of right foot M20.21 and DM neuro manif type II E11.49 [place] [address] 88246- 4152 07 May, 2016 Hyperhidrosis L74.519 ; Capsulitis of foot, right M77.51 and DM neuro manif type II E11.49 [place] [address] 77558- 2710 16 Apr, 2016 Neuropathy G62.9 [place] [address] 33432- 6116 Apr, Neuropathy G62.9 ; Essential hypertension I10 ; Arthritis M19.90 ; Hyperinsulinemia E16.1 and Moderate episode of recurrent major depressive disorder F33.[address] 86133- 4072 Apr, Male erectile dysfunction, unspecified N52.9 [place] [address] 85210- 1375 15 Jan, 2016 Osteoarthritis of right knee, unspecified osteoarthritis type M17.[address] 23927- 1244 14 Jan, 2016 Dysthymia F34.1 and Anxiety associated with depression F41.8 [place] [address] 44165- 7853 07 Jan, 2016 Dysthymia F34.[address] 21820- 6074 07 Jan, 2016 Essential hypertension I10 ; Neuropathy G62.9 and Dysthymia F34.[address] 92012- 3251 Nov, Essential hypertension I10 ; Neuropathy G62.9 ; Arthritis M19.90 and Hyperinsulinemia E16.1 [place] [address] 23328- 2247 Nov, Neuropathy G62.9 and Essential hypertension I10 [facility] [id number] [place] [address] 75915- 3541 07 Oct, 2015 [facility] [id number] [place] [address] 58007- 9126 Sep, Arthritis M19.90 and Neuropathy G62.9 [facility] [id number] [place] [address] 86607- 6256 15 Aug, 2015 [facility] [id number] [place] [address] 53125- 4103 Aug, Family history of diabetes mellitus Z83.3 ; Weight gain R63.5 and Essential hypertension I10 [place] [id number] [place] [address] 46263- 3492 Aug, Encounter to establish care Z76.89 ; Essential hypertension I10 ; Male erectile dysfunction, unspecified N52.9 ; Family history of diabetes mellitus Z83.3 and Weight gain R63.5 [facility] [id number] [place] [address] 79107- 4267 Jan, Hypogonadism in male E29.1 and Routine adult health maintenance Z00.00 [facility] [address] [place] [address] 73574 -8340 Dec, Male erectile dysfunction, unspecified N52.9 [place] [id number] [place] [address] 52094- 8615 Nov, [facility] [id number] [place] [address] 84604- 0016 Oct, Hypertension 401.9 [place] [id number] [place] [address] 21089- 5813 Sep, Hypertension 401.9 and Rectal pain 569.42 [place] [id number] [place] [address] 18727- 1847 Sep, [facility] [address] [place] [address] 3[address] Sep, Impotence of organic origin 607.84 [facility] [id number] [place] [address] 061305- 4135 Aug, Rectal pain 569.42 [facility] [id number] [place] [address] 00627- 1046 Aug, Hypertension 401.9 and Rectal pain 569.42 [facility] [id number] [place] [address] 146719- 1310 Jul, Impotence of organic origin 607.84 [facility] [id number] [place] [address] 52814- 5700 Jul, Impotence of organic origin 607.84 ; Blood in stool 578.1 and Elevated blood pressure reading without diagnosis of hypertension 796.2 [facility] [id number] [place] [address] 95430- 4813 June, Impotence of organic origin 607.84 [facility] [address] [id number] [address]- 3360 June, [facility] [id number] [place] [address] 732453- 3372 June, [facility] [address] [place] [address] 77141- 7722 June, Erectile dysfunction 607.84 [facility] [address] [id number] [address] 7883 May, [facility] [id number] [place] [address] 01766- 9379 May, [facility] [id number] [place] [address] 74530- 9788 Apr, [facility] [address], [place] [address]- 4286 Apr, [facility] [address] [id number], [place] [address]- 0178 Apr, [facility] [address] [facility] [id number], [place] [address]- 6627 Apr, [facility] [address] [facility] [id number], [place] [address]- 0347 Apr, [facility] [address] [facility] [id number], [place] [address]- 5525 Apr, [facility] [address] [facility] [id number] [place] [address]- 5184 Apr, [facility] [address] [facility] [id number] [place] [address]- 4896 Apr, [facility] [address] [facility] [id number], [place] [address]- 7427 Apr, [facility] [address], [place] [address]- 1144 Apr, [facility] [address] [facility] [id number], [place] [address]- 6388 Apr, [facility] [address], [place] [address]- 1557 Apr, [facility] [address] [id number], [place] [address]- 5112 Apr, [facility] [id number], [place] [address]- 1073 Apr, [facility] [address] [facility] [id number], [place] [address]- 5542 Apr, [facility] [id number] 4009 Mar, [facility] [address] [facility] [id number] [address] Mar, IMMUNIZATIONS No Known Immunizations SOCIAL HISTORY Never Assessed REASON FOR VISIT Custodial Letter Request PLAN OF CARE VITAL SIGNS MEDICATIONS Unknown [...]
--- OUTSIDE RECORDS SUMMARY | 2018-03-31 06:28 | XMS REPORT ---
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 22111144 Problem Hallux rigidus of right foot M20.21 Active 182555990 Problem Slow transit constipation K59.01 Active 60645362 Problem Adjustment disorder with disturbance of emotion F43.29 Active 87473028 Problem Male erectile dysfunction, unspecified N52.9 Active 955820162 Problem Essential hypertension I10 Active 16593133 Problem Lumbago M54.5 Active 981420106 Problem Family history of diabetes mellitus Z83.3 Active 074589279 Problem Arthritis M19.90 Active 4709414 Problem Neuropathy G62.9 Active 545124237 Problem Encounter to establish care Z76.89 Active 508205696 Problem Hyperinsulinemia E16.1 Active 65664694 Problem Weight gain R63.5 Active 0499464 Problem Dysthymia F34.1 Active 09227404 ALLERGIES No Known Allergies ENCOUNTERS Encounter Location Date Diagnosis [facility] [address] [facility] [id number], [place] [address] 1547 Oct, [facility] [address] [id number], [place] [address]- 1612 Sep, [facility] [address] [facility] [id number], [place] [address]- [address] Sep, Hyperinsulinemia E16.1 and Male erectile dysfunction, unspecified N52.9 [facility] [address], [place] [address]- 7816 Aug, Mood disorder F39 [facility] [id number] [place] [address] 13359- 3084 Jul, Mood disorder F39 [facility] [address] [place] [id number] Jul, Mood disorder F39 [facility] [id number] [place] [address] 91737- 0315 May, [facility] [id number] [place] [address] 24157- 9164 May, [facility] [id number] [place] [address] 44338- 6206 Apr, [place] [id number] [place] [address] 38023- 7402 Mar, Hallux rigidus of right foot M20.21 [place] [id number] [place] [address] 04767- 5971 Mar, Hyperinsulinemia E16.1 ; Essential hypertension I10 ; Male erectile dysfunction, unspecified N52.9 and Neuropathy G62.9 [place] [address] [place] [address] 11650- 8571 Mar, Hammertoe of right foot M20.41 and Neuropathy G62.9 [place] [address] [place] [address] 46226- 9833 Dec, Traumatic dislocation of right great toe, sequela S93.104S ; Hyperinsulinemia E16.1 ; Essential hypertension I10 ; Male erectile dysfunction, unspecified N52.9 and Neuropathy G62.9 [place] [id number] [place] [address] 09360- 1259 Nov, [place] [id number] [place] [address] 91084- 8531 Nov, Pain of right great toe M79.674 [facility] [address] [place] [address] Nov, Pain of right great toe M79.674 [place] [id number] [place] [address] 50766- 8981 Nov, [place] [id number] [place] [address] 67217- 6750 Nov, [facility] [address] [place] [address] Nov, Closed nondisplaced fracture of distal phalanx of right great toe with routine healing, subsequent encounter S92.424D ; Slow transit constipation K59.01 and Neuropathic pain M79.2 [place] [address] 58955- 8318 Sep, Sprain of right great toe, initial encounter S93.501A [place] [address] 81326- 4161 Sep, Dislocation of phalanx of foot, unspecified laterality, subsequent encounter S93.106D [place] [id number] [place] [address] 44630- 2266 Sep, [place] [id number] [place] [address] 58266- 3257 Sep, Male erectile dysfunction, unspecified N52.9 ; DM neuro manif type II E11.49 ; Essential hypertension I10 ; Dysthymia F34.1 and Subluxation of metatarsophalangeal joint of right great toe, subsequent encounter S93.141D [place] [id number] [place] [address] 78196- 9306 Jul, Right foot pain M79.671 [place] [id number] [place] [address] 30669- 4825 Jul, Adjustment disorder with disturbance of emotion F43.29 and 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 [place] [id number] [place] [address] 87507- 3188 Jul, Anxiety associated with depression F41.8 and Moderate episode of recurrent major depressive disorder F33.1 [place] [id number] [place] [address] 45385- 0759 Jul, DM neuro manif type II E11.49 ; Right foot pain M79.671 ; Moderate episode of recurrent major depressive disorder F33.1 ; Essential hypertension I10 and Neuropathy G62.9 [place] [address] 69325- 3052 June, Hallux rigidus of right foot M20.21 and DM neuro manif type II E11.49 [place] [address] 49769- 1057 May, Hyperhidrosis L74.519 ; Capsulitis of foot, right M77.51 and DM neuro manif type II E11.49 [place] [id number] [place] [address] 22470- 8454 16 Apr, 2016 Neuropathy G62.9 [place] [id number] [place] [address] 53220- 0950 Apr, Neuropathy G62.9 ; Essential hypertension I10 ; Arthritis M19.90 ; Hyperinsulinemia E16.1 and Moderate episode of recurrent major depressive disorder F33.1 [place] [id number] [place] [address] 71734- 7681 06 Apr, 2016 Male erectile dysfunction, unspecified N52.9 [place] [id number] [place] [address] 24516- 6077 15 Jan, 2016 Osteoarthritis of right knee, unspecified osteoarthritis type M17.11 [place] [id number] [place] [address] 67448- 7253 14 Jan, 2016 Dysthymia F34.1 and Anxiety associated with depression F41.8 [place] [id number] [place] [address] 04820- 0569 07 Jan, 2016 Dysthymia F34.1 [place] [id number] [place] [address] 98588- 5902 Jan, Essential hypertension I10 ; Neuropathy G62.9 and Dysthymia F34.1 [place] [address] 74877- 6385 Nov, Essential hypertension I10 ; Neuropathy G62.9 ; Arthritis M19.90 and Hyperinsulinemia E16.1 [place] [address] 07728- 0263 Nov, Neuropathy G62.9 and Essential hypertension I10 [place] [address] 38294- 1477 Oct, [place] [address] 98276- 6494 Sep, Arthritis M19.90 and Neuropathy G62.9 [place] [address] 19352- 0091 Aug, [place] [address] 02948- 7473 Aug, Family history of diabetes mellitus Z83.3 ; Weight gain R63.5 and Essential hypertension I10 [place] [address] 99025- 9158 Aug, Encounter to establish care Z76.89 ; Essential hypertension I10 ; Male erectile dysfunction, unspecified N52.9 ; Family history of diabetes mellitus Z83.3 and Weight gain R63.5 [place] [id number] [place] [address] 42708- 5725 Jan, Hypogonadism in male E29.1 and Routine adult health maintenance Z00.00 [facility] [address] 70805 -6673 Dec, Male erectile dysfunction, unspecified N52.9 [place] [id number] [place] [address] 35464- 5090 16 Nov, 2014 [place] [address] 98207- 1633 Oct, Hypertension 401.9 [place] [address] 4660 Sep, Hypertension 401.9 and Rectal pain 569.42 [facility] [address]- 5111 Sep, [place] [id number] [place] [address] 504575- 0492 Sep, Impotence of organic origin 607.84 [place] [address] [place] [address] 919096- 5018 Aug, Rectal pain 569.42 [place] [id number] [place] [address] 360500- 2241 Aug, Hypertension 401.9 and Rectal pain 569.42 [place] [id number] [place] [address] 93561- 7146 Jul, Impotence of organic origin 607.84 [place] [address], [place] [address]- 7941 Jul, Impotence of organic origin 607.84 ; Blood in stool 578.1 and Elevated blood pressure reading without diagnosis of hypertension 796.2 [place] [address], [place] [address]- 8819 June, Impotence of organic origin 607.84 [place] [address], [place] [address]- 4320 June, [place] [id number] [place] [address] 300378- 3722 June, [place] [address] [place] [address] 78788075- 8225 June, Erectile dysfunction 607.84 [place] [address] 5613 May, [facility] [place] [facility] [address] [id number] [place] [address]- 1157 13 May, 2014 [facility] [place] [facility] [address] [id number] [place] [address]- 1381 Apr, [facility] [place] [facility] [address] [id number] [place] [address]- 7550 Apr, [facility] [place] [facility] [address] [id number] [place] [address]- 9429 Apr, [facility] [place] [facility] [address] [id number] [place] [address]- 3768 Apr, [facility] [place] [facility] [address] [id number] [place] [address]- 2385 Apr, [facility] [place] [facility] [address] [id number] [place] [address]- 1267 Apr, [facility] [place] [facility] [address] [id number] [place] [address]- 4894 Apr, [facility] [place] [facility] [address] [id number] [place] [address]- 0899 Apr, [facility] [place] [facility] [address] [id number] [place] [address]- 6919 Apr, [facility] [place] [facility] [address] [id number] [place] [address]- 5343 Apr, [facility] [place] [facility] [address] [id number] [place] [address]- 9246 Apr, [facility] [place] [facility] [address] [id number] [place] [address]- 5460 Apr, [facility] [place] [facility] [address] [id number] [place] [address]- 0134 Apr, [facility] [place] [facility] [address] [id number] [place] [address]- 4923 Apr, [facility] [place] [facility] [address] [id number] [place] [address]- 6616 Apr, [facility] [address] [facility] [id number] [place] [address]- 2546 Mar, [facility] [address] [facility] [id number], [place] [address] Mar, IMMUNIZATIONS No Known Immunizations SOCIAL HISTORY Never Assessed REASON FOR VISIT half-way PLAN OF CARE VITAL SIGNS Height 72 in 2017-07-14 Weight 270 lbs 2017-07-14 Heart Rate 60 bpm 2017-07-14 Respiratory Rate 16 2017-07-14 BMI 36.61 kg/m2 2017-07-14 Blood pressure systolic 130 mmHg 2017-07-14 Blood pressure diastolic 80 mmHg 2017-07-14 MEDICATIONS Medication Instructions Dosage Frequency Start Date End Date Duration Status Trazodone HCl 100 MG Orally Once a day 1 [...]
--- OUTSIDE RECORDS SUMMARY | 2018-03-31 06:28 | XMS REPORT ---
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 27191914 Problem Hallux rigidus of right foot M20.21 Active 502904447 Problem Slow transit constipation K59.01 Active 59252165 Problem Adjustment disorder with disturbance of emotion F43.29 Active 53972881 Problem Male erectile dysfunction, unspecified N52.9 Active 904526956 Problem Essential hypertension I10 Active 78781315 Problem Lumbago M54.5 Active 828927980 Problem Family history of diabetes mellitus Z83.3 Active 887753953 Problem Arthritis M19.90 Active 5038982 Problem Neuropathy G62.9 Active 373821021 Problem Encounter to establish care Z76.89 Active 983784939 Problem Hyperinsulinemia E16.1 Active 63367082 Problem Weight gain R63.5 Active 9575911 Problem Dysthymia F34.1 Active 17194956 ALLERGIES No Information ENCOUNTERS Encounter Location Date Diagnosis [facility] [address] [facility] [id number] [id number] Sep, [facility] [address] [id number] [address] Aug, Mood disorder F39 [facility] [address] [facility] [id number], [place] [address] Jul, Mood disorder F39 [facility] [address] [facility] [place] [id number] Jul, Mood disorder F39 [facility] [address] [place] [address] 57113- 0748 May, [facility] [address] [place] [address] 69030- 7403 May, [facility] [id number] [place] [address] 12847- 2870 Apr, [facility] [id number] [place] [address] 18573- 8265 Mar, Hallux rigidus of right foot M20.21 [place] [id number] [place] [address] 68108- 5663 Mar, Hyperinsulinemia E16.1 ; Essential hypertension I10 ; Male erectile dysfunction, unspecified N52.9 and Neuropathy G62.9 [place] [id number] [place] [address] 79965- 8631 Mar, Hammertoe of right foot M20.41 and Neuropathy G62.9 [place] [id number] [place] [address] 99412- 4041 Dec, Traumatic dislocation of right great toe, sequela S93.104S ; Hyperinsulinemia E16.1 ; Essential hypertension I10 ; Male erectile dysfunction, unspecified N52.9 and Neuropathy G62.9 [facility] [address] [place] [address] 72976- 0355 Nov, [facility] [address] [place] [address] 34000- 3463 Nov, [facility] right [facility] M79.674 [facility] [address] [facility] [address] Nov, Pain of right great toe M79.674 [facility] [address], [place] [address] 74[address] Nov, [facility] [id number] [place] [address] 03357- 0500 13 Nov, 2016 [facility] [address] [place] [id number] 10 Nov, 2016 Closed nondisplaced fracture of distal phalanx of right great toe with routine healing, subsequent encounter S92.424D ; Slow transit constipation K59.01 and Neuropathic pain M79.2 [address] 75274- 6677 Sep, Sprain of right great toe, initial encounter S93.501A [place] [address] 39482- 6177 11 Sep, 2016 Dislocation of phalanx of foot, unspecified laterality, subsequent encounter S93.106D [place] [id number] [place] [address] 20935- 3392 09 Sep, 2016 [place] [address] 55273- 5467 Sep, Male erectile dysfunction, unspecified N52.9 ; DM neuro manif type II E11.49 ; Essential hypertension I10 ; Dysthymia F34.1 and Subluxation of metatarsophalangeal joint of right great toe, subsequent encounter S93.141D [place] [id number] [place] [address] 72213- 4723 Jul, Right foot pain M79.671 [address] [address] 35118- 6648 Jul, Adjustment disorder with disturbance of emotion F43.29 and 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 [place] [id number] [place] [address] 21092- 4271 12 Jul, 2016 Anxiety associated with depression F41.8 and Moderate episode of recurrent major depressive disorder F33.1 [place] [id number] [place] [address] 87643- 3636 12 Jul, 2016 DM neuro manif type II E11.49 ; Right foot pain M79.671 ; Moderate episode of recurrent major depressive disorder F33.1 ; Essential hypertension I10 and Neuropathy G62.9 [place] [id number] [place] [address] 22877- 7662 12 Jun, 2016 Hallux rigidus of right foot M20.21 and DM neuro manif type II E11.49 [place] [address] 54828- 0833 07 May, 2016 Hyperhidrosis L74.519 ; Capsulitis of foot, right M77.51 and DM neuro manif type II E11.49 [place] [id number] [place] [address] 68373- 9711 16 Apr, 2016 Neuropathy G62.9 [place] [address] 39347- 4160 15 Apr, 2016 Neuropathy G62.9 ; Essential hypertension I10 ; Arthritis M19.90 ; Hyperinsulinemia E16.1 and Moderate episode of recurrent major depressive disorder F33.1 [place] [address] 21855- 2902 06 Apr, 2016 Male erectile dysfunction, unspecified N52.9 [place] [address] 03068- 7729 15 Jan, 2016 Osteoarthritis of right knee, unspecified osteoarthritis type M17.11 [place] [address] 82038- 0442 14 Jan, 2016 Dysthymia F34.1 and Anxiety associated with depression F41.8 [place] [id number] [place] [address] 99187- 1685 07 Jan, 2016 Dysthymia F34.1 [address] [address] 40106- 1520 07 Jan, 2016 Essential hypertension I10 ; Neuropathy G62.9 and Dysthymia F34.1 [place] [address] 12558- 2825 20 Nov, 2015 Essential hypertension I10 ; Neuropathy G62.9 ; Arthritis M19.90 and Hyperinsulinemia E16.1 [facility] [id number] [place] [address] 37479- 1308 Nov, Neuropathy G62.9 and Essential hypertension I10 [facility] [id number] [place] [address] 05320- 1141 07 Oct, 2015 [facility] [id number] [place] [address] 56013- 0968 Sep, Arthritis M19.90 and Neuropathy G62.9 [facility] [id number] [place] [address] 53678- 8009 Aug, [place] [address] 80340- 6723 Aug, Family history of diabetes mellitus Z83.3 ; Weight gain R63.5 and Essential hypertension I10 [place] [address] 14125- 2945 Aug, Encounter to establish care Z76.89 ; Essential hypertension I10 ; Male erectile dysfunction, unspecified N52.9 ; Family history of diabetes mellitus Z83.3 and Weight gain R63.5 [place] [id number] [place] [address] 58993- 8365 Jan, Hypogonadism in male E29.1 and Routine adult health maintenance Z00.00 [facility] [address] [place] [address] 57616 -9347 Dec, Male erectile dysfunction, unspecified N52.9 [facility] [id number] [place] [address] 99040- 0507 Nov, [place] [address] 61830- 9988 Oct, Hypertension 401.9 [place] [id number] [place] [address] 27042- 6789 Sep, Hypertension 401.9 and Rectal pain 569.42 [place] [place] [address]- 7167 Sep, [facility] [address], [place] [address] 9171 Sep, Impotence of organic origin 607.84 [facility] [address], [place] [address] 1530 Aug, Rectal pain 569.42 [facility] [id number] [place] [address] 89971- 4972 Aug, Hypertension 401.9 and Rectal pain 569.42 [facility] [address] 3132 Jul, Impotence of organic origin 607.84 [facility] [address], [place] [address] 1131 Jul, Impotence of organic origin 607.84 ; Blood in stool 578.1 and Elevated blood pressure reading without diagnosis of hypertension 796.2 [facility] [address], [place] [address]- 9902 June, Impotence of organic origin 607.84 [facility] [address], [place] [address]- 0947 June, [facility] [address], [place] [address]- 6253 June, [facility] [address], [place] [address]- 6296 June, Erectile dysfunction 607.84 [facility] [address] 8258 May, [facility] [address] 6684 May, [facility] [address] [id number], [place] [address] 6652 Apr, [facility] [address] [place] [address]- 1170 Apr, [facility] [address] [id number] [place] [address]- 7390 Apr, [facility] [place] [facility] [address] [id number] [place] [address]- 4571 Apr, [facility] [place] [facility] [address] [id number] [place] [address]- 4115 Apr, [facility] [place] [facility] [address] [id number] [place] [address]- 7289 Apr, [facility] [place] [facility] [address] [id number] [place] [address]- 8885 Apr, [facility] [place] [facility] [address] [id number] [place] [address]- 5490 Apr, [facility] [place] [facility] [address] [id number] [place] [address]- 0989 Apr, [facility] [place] [facility] [address] [id number] [place] [address]- 8059 Apr, [facility] [place] [facility] [address] [id number] [place] [address]- 8725 Apr, [facility] [place] [facility] [address] [id number] [place] [address]- 0939 Apr, [facility] [place] [facility] [address] [id number] [place] [address]- 0934 Apr, [facility] [place] [facility] [address] [id number] [place] [address]- 4785 Apr, [facility] [place] [facility] [address] [id number] [place] [address]- 6534 Apr, [facility] [place] [facility] [address] [id number] [place] [address]- 7806 Mar, [facility] [place] [facility] [address] [id number] [place] [address]- 1534 Mar, IMMUNIZATIONS No Known Immunizations SOCIAL HISTORY Never Assessed REASON FOR VISIT Hospital script fill request PLAN OF CARE VITAL SIGNS MEDICATIONS [...]
--- OUTSIDE RECORDS SUMMARY | 2018-03-31 06:28 | XMS REPORT ---
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 94982882 Problem Hallux rigidus of right foot M20.21 Active 052482561 Problem Slow transit constipation K59.01 Active 18222549 Problem Adjustment disorder with disturbance of emotion F43.29 Active 94114125 Problem Male erectile dysfunction, unspecified N52.9 Active 401450242 Problem Essential hypertension I10 Active 65817142 Problem Lumbago M54.5 Active 085333559 Problem Family history of diabetes mellitus Z83.3 Active 907514028 Problem Arthritis M19.90 Active 2555112 Problem Neuropathy G62.9 Active 460472324 Problem Encounter to establish care Z76.89 Active 411352797 Problem Hyperinsulinemia E16.1 Active 24922505 Problem Weight gain R63.5 Active 7798713 Problem Dysthymia F34.1 Active 05147506 ALLERGIES No Information ENCOUNTERS Encounter Location Date Diagnosis [facility] [place] [facility] [address] [facility] [id number] [id number] Sep, [facility] [address] [id number] [address] Jul, Mood disorder F39 [facility] [address] [place] [id number] Jul, Mood disorder F39 [facility] [address], [place] [address]- 6300 May, [facility] [id number] [place] [address] 48287- 8210 May, [facility] [id number] [place] [address] 83150- 1422 Apr, [place] [id number] [place] [address] 80564- 1843 Mar, Hallux rigidus of right foot M20.21 [place] [id number] [place] [address] 57268- 7122 Mar, Hyperinsulinemia E16.1 ; Essential hypertension I10 ; Male erectile dysfunction, unspecified N52.9 and Neuropathy G62.9 [place] [id number] [place] [address] 48659- 1956 Mar, Hammertoe of right foot M20.41 and Neuropathy G62.9 [place] [id number] [place] [address] 96525- 9000 Dec, Traumatic dislocation of right great toe, sequela S93.104S ; Hyperinsulinemia E16.1 ; Essential hypertension I10 ; Male erectile dysfunction, unspecified N52.9 and Neuropathy G62.9 [place] [address] [place] [address] 26348- 2819 Nov, [place] [address] [place] [address] 21312- 4878 Nov, Pain of right great toe M79.674 [facility] [address] [place] [id number] Nov, Pain of right great toe M79.674 [place] [id number] [place] [address] 97956- 5467 Nov, [place] [address] [place] [address] 04331- 2563 Nov, [facility] [address] [place] [address] Nov, Closed nondisplaced fracture of distal phalanx of right great toe with routine healing, subsequent encounter S92.424D ; Slow transit constipation K59.01 and Neuropathic pain M79.2 [place] [address] 86457- 9707 Sep, Sprain of right great toe, initial encounter S93.501A [place] [address] 53849- 0986 Sep, Dislocation of phalanx of foot, unspecified laterality, subsequent encounter S93.106D [place] [address] 02012- 4431 Sep, [place] [address] 25406- 9597 Sep, Male erectile dysfunction, unspecified N52.9 ; DM neuro manif type II E11.49 ; Essential hypertension I10 ; Dysthymia F34.1 and Subluxation of metatarsophalangeal joint of right great toe, subsequent encounter S93.141D [place] [address] 31778- 9742 Jul, Right foot pain M79.671 [place] [address] 49103- 1012 Jul, Adjustment disorder with disturbance of emotion F43.29 and 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 [place] [address] 91247- 7956 Jul, Anxiety associated with depression F41.8 and Moderate episode of recurrent major depressive disorder F33.1 [place] [address] 29678- 1337 Jul, DM neuro manif type II E11.49 ; Right foot pain M79.671 ; Moderate episode of recurrent major depressive disorder F33.1 ; Essential hypertension I10 and Neuropathy G62.9 [place] [address] 83401- 3944 June, Hallux rigidus of right foot M20.21 and DM neuro manif type II E11.49 [place] [address] 08223- 9382 07 May, 2016 Hyperhidrosis L74.519 ; Capsulitis of foot, right M77.51 and DM neuro manif type II E11.49 [place] [address] 35794- 8601 16 Apr, 2016 Neuropathy G62.9 [place] [address] 77024- 3468 15 Apr, 2016 Neuropathy G62.9 ; Essential hypertension I10 ; Arthritis M19.90 ; Hyperinsulinemia E16.1 and Moderate episode of recurrent major depressive disorder F33.1 [place] [address] 84970- 5213 06 Apr, 2016 Male erectile dysfunction, unspecified N52.9 [place] [address] 97861- 5101 15 Jan, 2016 Osteoarthritis of right knee, unspecified osteoarthritis type M17.[address] 21202- 5774 14 Jan, 2016 Dysthymia F34.1 and Anxiety associated with depression F41.[address] 92411- 2316 07 Jan, 2016 Dysthymia F34.1 [place] [address] 02214- 8455 07 Jan, 2016 Essential hypertension I10 ; Neuropathy G62.9 and Dysthymia F34.[address] 13116- 6370 20 Nov, 2015 Essential hypertension I10 ; Neuropathy G62.9 ; Arthritis M19.90 and Hyperinsulinemia E16.[address] 57322- 5051 Nov, Neuropathy G62.9 and Essential hypertension I10 [facility] [id number] [place] [address] 92226- 5083 Oct, [facility] [id number] [place] [address] 47116- 9631 Sep, Arthritis M19.90 and Neuropathy G62.9 [facility] [address] 25267- 7411 Aug, [facility] [address] 32579- 9733 Aug, Family history of diabetes mellitus Z83.3 ; Weight gain R63.5 and Essential hypertension I10 [place] [id number] [place] [address] 47764- 2287 Aug, Encounter to establish care Z76.89 ; Essential hypertension I10 ; Male erectile dysfunction, unspecified N52.9 ; Family history of diabetes mellitus Z83.3 and Weight gain R63.5 [facility] [id number] [place] [address] 24422- 3773 Jan, Hypogonadism in male E29.1 and Routine adult health maintenance Z00.00 [facility] [id number] [place] [address] 01096 -9460 Dec, Male erectile dysfunction, unspecified N52.9 [facility] [id number] [place] [address] 64599- 8253 Nov, [facility] [id number] [place] [address] 72716- 4948 Oct, Hypertension 401.9 [place] [id number] [place] [address] 48704- 1564 Sep, Hypertension 401.9 and Rectal pain 569.42 [facility] [id number] [place] [address] 05932- 3037 Sep, [facility] [address] 34980- 9561 Sep, Impotence of organic origin 607.84 [facility] [address] [place] [address] 944510- 9776 Aug, Rectal pain 569.42 [facility] [id number] [place] [address] 37190- 2296 Aug, Hypertension 401.9 and Rectal pain 569.42 [facility] [id number] [place] [address] 81324- 4679 Jul, Impotence of organic origin 607.84 [facility] [id number] [place] [address] 90301- 0430 Jul, Impotence of organic origin 607.84 ; Blood in stool 578.1 and Elevated blood pressure reading without diagnosis of hypertension 796.2 [facility] [id number] [place] [address] 18862- 3367 June, Impotence of organic origin 607.84 [facility] [address] [place] [address] 70728- 8459 June, [facility] [id number] [place] [address] 24873- 9378 June, [facility] [address] [place] [address] 73536- 5311 June, Erectile dysfunction 607.84 [facility] [id number] [place] [address] 93289- 6400 May, [facility] [address] [place] [address] 06931- 1951 May, [facility] [id number] [place] [address] 036275- 9246 Apr, [facility] [address] 5350 Apr, [facility] [id number] [place] [address] 87691- 5936 Apr, [facility] [address] [facility] [id number] [address]- 5280 Apr, [facility] [address] [facility] [id number], [place] [address]- 6288 Apr, [facility] [address], [place] [address]- 7658 Apr, [facility] [address] [facility] [id number], [place] [address]- 0623 Apr, [facility] [address] [facility] [id number], [place] [address]- 3197 Apr, [facility] [address] [id number], [place] [address]- 5104 Apr, [facility] [address], [place] [address]- 1220 Apr, [facility] [address], [place] [address]- 0795 Apr, [facility] [address], [place] [address]- 9100 Apr, [facility] [address], [place] [address]- 8577 Apr, [facility] [address], [place] [address]- 1402 Apr, [facility] [address] [id number], [place] [address]- 0000 Apr, [facility] [address] [id number], [place] [address]- 1072 Mar, [facility] [address] [id number], [place] [address]- 1692 Mar, IMMUNIZATIONS No Known Immunizations SOCIAL HISTORY Never Assessed REASON FOR VISIT 6 month f/u. Consult Dr. Cavazos;Chris RT(R) PLAN OF CARE Activity Details Follow Up prn Reason: VITAL SIGNS Height 72 in 2017-04-03 Blood pressure systolic 142 mmHg 2017-04-03 Blood pressure diastolic 86 mmHg 2017-04-03 MEDICATIONS Unknown Medications RESULTS No Results PROCEDURES [...]
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
--- OUTSIDE RECORDS SUMMARY | 2018-03-31 06:29 | XMS REPORT ---
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 Name Role Phone FUAD JAMES Unavailable PROBLEMS Type Condition ICD9-CM Code EXS58-IA Code Onset Dates Condition Status SNOMED Code Problem Dysthymia F34.1 Active 74203103 Problem Moderate episode of recurrent major depressive disorder F33.1 Active 369447371 Problem Anxiety associated with depression F41.8 Active 753738855 Problem Hammertoe of right foot M20.41 Active 412055982 Problem Slow transit constipation K59.01 Active 81043571 Problem Hallux rigidus of right foot M20.21 Active 383066000 Problem DM neuro manif type II E11.49 Active 11804598 Problem Adjustment disorder with disturbance of emotion F43.29 Active 45926651 Problem 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 [id number] [address] Jul, [facility] [address] [address]- 9508 May, [facility] [id number], [place] [address]- 9039 May, [facility] [address] [place] [address] 50942- 0228 Apr, [place] [id number] [place] [address] 38606- 4071 Mar, Hallux rigidus of right foot M20.21 [place] [id number] [place] [address] 22148- 2060 Mar, Hyperinsulinemia E16.1 ; Essential hypertension I10 ; Male erectile dysfunction, unspecified N52.9 and Neuropathy G62.9 [place] [id number] [place] [address] 25608- 4209 Mar, Hammertoe of right foot M20.41 and Neuropathy G62.9 [place] [id number] [place] [address] 50584- 6829 Dec, Traumatic dislocation of right great toe, sequela S93.104S ; Hyperinsulinemia E16.1 ; Essential hypertension I10 ; Male erectile dysfunction, unspecified N52.9 and Neuropathy G62.9 [place] [id number] [place] [address] 41334- 2497 Nov, [place] [id number] [place] [address] 07592- 4717 Nov, Pain of right great toe M79.674 [facility] [address] [place] [id number] Nov, Pain of right great toe M79.674 [place] [id number] [place] [address] 84088- 0669 Nov, [place] [id number] [place] [address] 87947- 3200 Nov, [facility] [address] [place] [id number] Nov, Closed nondisplaced fracture of distal phalanx of right great toe with routine healing, subsequent encounter S92.424D ; Slow transit constipation K59.01 and Neuropathic pain M79.2 [place] [id number] [place] [address] 59608- 5774 Sep, Sprain of right great toe, initial encounter S93.501A [place] [address] 46492- 8580 11 Sep, 2016 Dislocation of phalanx of foot, unspecified laterality, subsequent encounter S93.106D [place] [address] 39318- 2353 Sep, [place] [address] 65699- 7018 Sep, Male erectile dysfunction, unspecified N52.9 ; DM neuro manif type II E11.49 ; Essential hypertension I10 ; Dysthymia F34.1 and Subluxation of metatarsophalangeal joint of right great toe, subsequent encounter S93.141D [place] [address] 34459- 6198 Jul, Right foot pain M79.671 [place] [address] 81714- 8878 Jul, Adjustment disorder with disturbance of emotion F43.29 and 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 [place] [address] 69790- 5358 Jul, Anxiety associated with depression F41.8 and Moderate episode of recurrent major depressive disorder F33.1 [place] [address] 95330- 0195 Jul, DM neuro manif type II E11.49 ; Right foot pain M79.671 ; Moderate episode of recurrent major depressive disorder F33.1 ; Essential hypertension I10 and Neuropathy G62.9 [place] [address] 84746- 6475 June, Hallux rigidus of right foot M20.21 and DM neuro manif type II E11.49 [place] [id number] [place] [address] 92590- 5647 May, Hyperhidrosis L74.519 ; Capsulitis of foot, right M77.51 and DM neuro manif type II E11.49 [place] [id number] [place] [address] 07787- 5560 16 Apr, 2016 Neuropathy G62.9 [place] [address] 75203- 9465 15 Apr, 2016 Neuropathy G62.9 ; Essential hypertension I10 ; Arthritis M19.90 ; Hyperinsulinemia E16.1 and Moderate episode of recurrent major depressive disorder F33.1 [place] [id number] [place] [address] 96418- 2021 06 Apr, 2016 Male erectile dysfunction, unspecified N52.9 [place] [address] 58731- 5570 15 Jan, 2016 Osteoarthritis of right knee, unspecified osteoarthritis type M17.[address] 65274- 0869 14 Jan, 2016 Dysthymia F34.1 and Anxiety associated with depression F41.8 [place] [address] 00230- 5626 07 Jan, 2016 Dysthymia F34.1 [place] [address] 97795- 2444 07 Jan, 2016 Essential hypertension I10 ; Neuropathy G62.9 and Dysthymia F34.1 [place] [id number] [place] [address] 75873- 1313 20 Nov, 2015 Essential hypertension I10 ; Neuropathy G62.9 ; Arthritis M19.90 and Hyperinsulinemia E16.1 [place] [address] 91306- 3539 13 Nov, 2015 Neuropathy G62.9 and Essential hypertension I10 [place] [address] 42879- 5703 Oct, [place] [address] 71417- 1819 Sep, Arthritis M19.90 and Neuropathy G62.9 [facility] [id number] [place] [address] 89085- 4087 Aug, [place] [id number] [place] [address] 40629- 4203 Aug, Family history of diabetes mellitus Z83.3 ; Weight gain R63.5 and Essential hypertension I10 [place] [id number] [place] [address] 38836- 3689 Aug, Encounter to establish care Z76.89 ; Essential hypertension I10 ; Male erectile dysfunction, unspecified N52.9 ; Family history of diabetes mellitus Z83.3 and Weight gain R63.5 [place] [id number] [place] [address] 25968- 7301 Jan, Hypogonadism in male E29.1 and Routine adult health maintenance Z00.00 [facility] [id number] [place] [address] 54414 -9397 Dec, Male erectile dysfunction, unspecified N52.9 [place] [id number] [place] [address] 35419- 7217 Nov, [place] [id number] [place] [address] 98089- 4228 Oct, Hypertension 401.9 [place] [id number] [place] [address] 12517- 2983 Sep, Hypertension 401.9 and Rectal pain 569.42 [place] [id number] [place] [address] 43341- 2111 Sep, [place] [id number] [place] [address] 46042- 9938 Sep, Impotence of organic origin 607.84 [place] [id number] [place] [address] 55503- 5606 Aug, Rectal pain 569.42 [place] [id number] [address]- 3005 17 Aug, 2014 Hypertension 401.9 and Rectal pain 569.42 [facility] [id number] [address]- 8786 Jul, Impotence of organic origin 607.84 [facility] [address] [address] 2546 17 Jul, 2014 Impotence of organic origin 607.84 ; Blood in stool 578.1 and Elevated blood pressure reading without diagnosis of hypertension 796.2 [facility] [address] [address]- 7912 June, Impotence of organic origin 607.84 [facility] [id number] [address]- 0306 June, [facility] [id number] [place] [address] 26108- 9053 June, [facility] [address] [address]- 3790 June, Erectile dysfunction 607.84 [facility] [address] [address]- 2858 May, [facility] [address] [address]- 4906 May, [facility] [address] [address]- 1092 Apr, [facility] [address] [address]- 0788 Apr, [facility] [id number] [address] 2549 Apr, [facility] [id number], [place] [address] 2543 Apr, [facility] [id number] [address]- 9358 Apr, [facility] [id number] [address]- 6606 Apr, [facility] [id number], [place] [address]- 9535 Apr, [facility] [address], [place] [address]- 8678 Apr, [facility] [id number] [address]- 3347 Apr, [facility] [id number] [address]- 8644 Apr, [facility] [id number] [place] [address] 26802- 9694 Apr, [facility] [id number], [place] [address]- 7512 Apr, [facility] [address], [place] [address]- 1129 Apr, [facility] [address], [place] [address]- 0729 Apr, [facility] [address] [address]- 1353 Apr, [facility] [address] [address]- 3243 Mar, [facility] [id number] [address] 8028 Mar, IMMUNIZATIONS No Known Immunizations SOCIAL HISTORY Never Assessed REASON FOR VISIT RETIREMENT PLAN OF CARE VITAL SIGNS Height 72 in 2016-11-18 Weight 280 lbs 2016-11-18 Heart Rate 68 bpm 2016-11-18 Respiratory Rate 16 2016-11-18 BMI 37.97 kg/m2 2016-11-18 Blood pressure systolic 124 mmHg 2016-11-18 Blood pressure diastolic 76 mmHg 2016-11-18 MEDICATIONS Medication Instructions Dosage Frequency Start Date End Date Duration Status Gabapentin 300 MG Orally Three times a day 1 capsule 8h Nov, 30 day(s) Active Colace 100 mg Orally twice a day 1 capsule as needed 12h Nov, Dec, 30 day(s) Active RESULTS No Results PROCEDURES [...]
[2018-03-31] MEDS ORDERED: ASPIRIN 81 MG CHEW (CHILDREN'S ASA) PO ONE (06:30)
[2018-03-31] MEDS ORDERED: NITROGLYCERIN 0.4 MG SL TABS BTL 25'S SL PRN (06:30)
--- OUTSIDE RECORDS SUMMARY | 2018-03-31 06:30 | XMS REPORT ---
Author Author ANGELA DIA [facility] Address [address] [place] [address] Care Team Providers Care Apartment Maintenance Supervisor Name Role Phone ANGELA DIA Unavailable PROBLEMS Type Condition ICD9-CM Code XJP14-HF Code Onset Dates Condition Status SNOMED Code Problem Dysthymia F34.1 Active 15256358 Problem Moderate episode of recurrent major depressive disorder F33.1 Active 896080818 Problem Anxiety associated with depression F41.8 Active 438756685 Problem Hammertoe of right foot M20.41 Active 027122649 Problem Slow transit constipation K59.01 Active 44107945 Problem Hallux rigidus of right foot M20.21 Active 295967693 Problem DM neuro manif type II E11.49 Active 51300663 Problem Adjustment disorder with disturbance of emotion F43.29 Active 90544620 Problem 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 92532407 Problem Encounter to establish care Z76.89 Active 103448502 Problem Weight gain R63.5 Active 0016123 Problem Lumbago M54.5 Active 093770296 Problem Essential hypertension I10 Active 68868415 Problem Neuropathy G62.9 Active 946014045 Problem Family history of diabetes mellitus Z83.3 Active 639605891 Problem Arthritis M19.90 Active 4075810 Problem Male erectile dysfunction, unspecified N52.9 Active 588284442 Problem Hyperinsulinemia E16.1 Active 96978382 ALLERGIES No Information ENCOUNTERS Encounter Location Date Diagnosis [facility] [address] [facility] [id number], [place] [address] Jul, [facility] [address], [place] [address] May, [facility] [id number], [place] [address] 4[address] Apr, [facility] [id number] [place] [address] 33668- 4276 Mar, Hallux rigidus of right foot M20.21 [place] [id number] [place] [address] 70838- 8434 Mar, Hyperinsulinemia E16.1 ; Essential hypertension I10 ; Male erectile dysfunction, unspecified N52.9 and Neuropathy G62.9 [place] [id number] [place] [address] 53764- 3523 Mar, Hammertoe of right foot M20.41 and Neuropathy G62.9 [place] [id number] [place] [address] 65289- 2403 Dec, Traumatic dislocation of right great toe, sequela S93.104S ; Hyperinsulinemia E16.1 ; Essential hypertension I10 ; Male erectile dysfunction, unspecified N52.9 and Neuropathy G62.9 [place] [id number] [place] [address] 28497- 5940 Nov, [place] [id number] [place] [address] 45995- 1409 Nov, Pain of right great toe M79.[address] [id number] Nov, Pain of right great toe M79.674 [place] [id number] [place] [address] 34238- 5772 Nov, [place] [id number] [place] [address] 68533- 9743 Nov, [facility] [address] [place] [id number] Nov, Closed nondisplaced fracture of distal phalanx of right great toe with routine healing, subsequent encounter S92.424D ; Slow transit constipation K59.01 and Neuropathic pain M79.2 [place] [id number] [place] [address] 16333- 3560 Sep, Sprain of right great toe, initial encounter S93.501A [place] [address] [place] [address] 0740 Sep, Dislocation of phalanx of foot, unspecified laterality, subsequent encounter S93.106D [place] [id number] [place] [address] 72203- 0173 09 Sep, 2016 [place] [address] 12372- 8024 Sep, Male erectile dysfunction, unspecified N52.9 ; DM neuro manif type II E11.49 ; Essential hypertension I10 ; Dysthymia F34.1 and Subluxation of metatarsophalangeal joint of right great toe, subsequent encounter S93.141D [place] [address] 16754- 1361 15 Jul, 2016 Right foot pain M79.671 [place] [address] 66898- 2980 Jul, Adjustment disorder with disturbance of emotion F43.29 and 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 [place] [address] 85753- 1030 Jul, Anxiety associated with depression F41.8 and Moderate episode of recurrent major depressive disorder F33.1 [place] [id number] [place] [address] 94913- 3954 Jul, DM neuro manif type II E11.49 ; Right foot pain M79.671 ; Moderate episode of recurrent major depressive disorder F33.1 ; Essential hypertension I10 and Neuropathy G62.9 [place] [id number] [place] [address] 80859- 6157 June, Hallux rigidus of right foot M20.21 and DM neuro manif type II E11.49 [place] [id number] [place] [address] 39487- 5277 May, Hyperhidrosis L74.519 ; Capsulitis of foot, right M77.51 and DM neuro manif type II E11.49 [place] [id number] [place] [address] 67262- 5621 16 Apr, 2016 Neuropathy G62.9 [place] [address] 52576- 2529 15 Apr, 2016 Neuropathy G62.9 ; Essential hypertension I10 ; Arthritis M19.90 ; Hyperinsulinemia E16.1 and Moderate episode of recurrent major depressive disorder F33.1 [place] [address] 60681- 6506 06 Apr, 2016 Male erectile dysfunction, unspecified N52.9 [place] [address] 32021- 6829 15 Jan, 2016 Osteoarthritis of right knee, unspecified osteoarthritis type M17.11 [place] [address] 00017- 2935 14 Jan, 2016 Dysthymia F34.1 and Anxiety associated with depression F41.8 [place] [address] 40851- 3920 07 Jan, 2016 Dysthymia F34.1 [place] [address] 84273- 2165 07 Jan, 2016 Essential hypertension I10 ; Neuropathy G62.9 and Dysthymia F34.1 [place] [address] 78666- 9994 20 Nov, 2015 Essential hypertension I10 ; Neuropathy G62.9 ; Arthritis M19.90 and Hyperinsulinemia E16.1 [place] [id number] [place] [address] 80027- 3587 13 Nov, 2015 Neuropathy G62.9 and Essential hypertension I10 [place] [address] 69556- 7473 07 Oct, 2015 [place] [address] 24415- 0569 Sep, Arthritis M19.90 and Neuropathy G62.9 [place] [address] [place] [address]- 8761 15 Aug, 2015 [facility] [id number] [place] [address] 90471- 1160 Aug, 2016 Family history of diabetes mellitus Z83.3 ; Weight gain R63.5 and Essential hypertension I10 [facility] [id number] [place] [address] 72733- 7551 Aug, Encounter to establish care Z76.89 ; Essential hypertension I10 ; Male erectile dysfunction, unspecified N52.9 ; Family history of diabetes mellitus Z83.3 and Weight gain R63.5 [facility] [id number] [place] [address] 49267- 3074 Jan, Hypogonadism in male E29.1 and Routine adult health maintenance Z00.00 [facility] [id number] [place] [address] 65392 -4444 Dec, Male erectile dysfunction, unspecified N52.9 [facility] [id number] [place] [address] 35205- 1840 Nov, [facility] [id number] [place] [address] 18022- 4304 Oct, Hypertension 401.9 [facility] [id number] [place] [address] 97486- 5615 Sep, Hypertension 401.9 and Rectal pain 569.42 [place] [id number] [place] [address] 02410- 0346 Sep, [facility] [id number] [place] [address] 64233- 7085 Sep, Impotence of organic origin 607.84 [place] [id number] [place] [address] 50618- 3321 Aug, Rectal pain 569.42 [facility] [id number] [place] [address] 87506- 8029 Aug, Hypertension 401.9 and Rectal pain 569.42 [facility] [address], [place] [address] 47[address] 27 Jul, 2014 Impotence of organic origin 607.84 [facility] [id number] [place] [address] 589829- 7497 17 Jul, 2014 Impotence of organic origin 607.84 ; Blood in stool 578.1 and Elevated blood pressure reading without diagnosis of hypertension 796.2 [facility] [id number] [place] [address] 02305- 8302 June, Impotence of organic origin 607.84 [facility] [id number] [place] [address] 93663- 5433 June, [facility] [id number] [place] [address] 14886- 0688 June, [facility] [id number] [place] [address] 77582- 9849 June, Erectile dysfunction 607.84 [facility] [address], [place] [address]- 9605 May, [facility] [id number] [place] [address] 45812- 6046 May, [facility] [address], [place] [address]- 6592 Apr, [facility] [address], [place] [address]- 3763 Apr, [facility] [address], [place] [address]- 2768 Apr, [facility] [id number] [place] [address] 14672- 8232 Apr, [facility] [address], [place] [address]- 9037 Apr, [facility] [id number] [place] [address] 54998- 2329 Apr, [facility] [address], [place] [address]- 4173 Apr, [facility] [address] [facility] [id number], [place] [address]- 5594 Apr, [facility] [address], [place] [address]- 7818 Apr, [facility] [address] [facility] [id number], [place] [address]- 4862 Apr, [facility] [address], [place] [address]- 8369 Apr, [facility] [address], [place] [address]- 7028 Apr, [facility] [address], [place] [address]- 6498 Apr, [facility] [address], [place] [address]- 8329 Apr, [facility] [address], [place] [address]- 9519 Apr, [facility] [address], [place] [address]- 6652 Mar, [facility] [id number], [place] [address]- 3370 Mar, IMMUNIZATIONS No Known Immunizations SOCIAL HISTORY Never Assessed REASON FOR VISIT dislocated toe- Accidently kicked a pipe 2 months ago- Israel Negron RN PLAN OF CARE Activity Details Follow Up prn Reason: VITAL SIGNS Height 72 in 2016-10-02 Heart Rate 98 bpm 2016-10-02 Respiratory Rate 18 2016-10-02 Blood pressure systolic 162 mmHg 2016-10-02 Blood pressure diastolic 98 mmHg 2016-10-02 MEDICATIONS Unknown Medications RESULTS No Results PROCEDURES [...]
--- OUTSIDE RECORDS SUMMARY | 2018-03-31 06:30 | XMS REPORT ---
Author Author FUAD JAMES Organization [facility] Address [address] [place] [address] Care Team Providers Care Logistics Specialist Name Role Phone FUAD JAMES Unavailable PROBLEMS Type Condition ICD9-CM Code ZRB14-IT Code Onset Dates Condition Status SNOMED Code Problem Dysthymia F34.1 Active 38090684 Problem Moderate episode of recurrent major depressive disorder F33.1 Active 473353328 Problem Anxiety associated with depression F41.8 Active 560500636 Problem Hammertoe of right foot M20.41 Active 565504242 Problem Slow transit constipation K59.01 Active 78954846 Problem Hallux rigidus of right foot M20.21 Active 037136376 Problem DM neuro manif type II E11.49 Active 35970725 Problem Adjustment disorder with disturbance of emotion F43.29 Active 22715023 Problem 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 89324838 Problem Encounter to establish care Z76.89 Active 784766111 Problem Weight gain R63.5 Active 9379594 Problem Lumbago M54.5 Active 551673917 Problem Essential hypertension I10 Active 12028037 Problem Neuropathy G62.9 Active 145193574 Problem Family history of diabetes mellitus Z83.3 Active 006646463 Problem Arthritis M19.90 Active 2576766 Problem Male erectile dysfunction, unspecified N52.9 Active 820879925 Problem Hyperinsulinemia E16.1 Active 64251616 ALLERGIES No Information ENCOUNTERS Encounter Location Date Diagnosis [facility] [id number], [place] [address]- 1673 Jul, [facility] [address], [place] [address]- 3924 May, [facility] [id number], [place] [address]- 4312 May, [facility] [address] [place] [address] 84971- 3927 Apr, [place] [id number] [place] [address] 77109- 4303 Mar, Hallux rigidus of right foot M20.21 [place] [id number] [place] [address] 10573- 6795 Mar, Hyperinsulinemia E16.1 ; Essential hypertension I10 ; Male erectile dysfunction, unspecified N52.9 and Neuropathy G62.9 [place] [id number] [place] [address] 96730- 8054 Mar, Hammertoe of right foot M20.41 and Neuropathy G62.9 [place] [id number] [place] [address] 08878- 0172 Dec, Traumatic dislocation of right great toe, sequela S93.104S ; Hyperinsulinemia E16.1 ; Essential hypertension I10 ; Male erectile dysfunction, unspecified N52.9 and Neuropathy G62.9 [place] [id number] [place] [address] 29918- 3389 Nov, [place] [id number] [place] [address] 52358- 3776 Nov, Pain of right great toe M79.674 [facility] [address] [place] [id number] Nov, Pain of right great toe M79.674 [place] [id number] [place] [address] 45710- 4177 Nov, [place] [id number] [place] [address] 89471- 9287 Nov, [facility] [address] [place] [id number] Nov, Closed nondisplaced fracture of distal phalanx of right great toe with routine healing, subsequent encounter S92.424D ; Slow transit constipation K59.01 and Neuropathic pain M79.2 [place] [id number] [place] [address] 66874- 3077 Sep, Sprain of right great toe, initial encounter S93.501A [place] [id number] [place] [address] 57924- 2026 11 Sep, 2016 Dislocation of phalanx of foot, unspecified laterality, subsequent encounter S93.106D [place] [id number] [place] [address] 57539- 6905 Sep, [place] [address] 17290- 9221 Sep, Male erectile dysfunction, unspecified N52.9 ; DM neuro manif type II E11.49 ; Essential hypertension I10 ; Dysthymia F34.1 and Subluxation of metatarsophalangeal joint of right great toe, subsequent encounter S93.141D [place] [address] 09650- 0583 Jul, Right foot pain M79.671 [place] [address] 08483- 1570 Jul, Adjustment disorder with disturbance of emotion F43.29 and 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 [place] [address] 93302- 0835 Jul, Anxiety associated with depression F41.8 and Moderate episode of recurrent major depressive disorder F33.1 [place] [id number] [place] [address] 83964- 9716 Jul, DM neuro manif type II E11.49 ; Right foot pain M79.671 ; Moderate episode of recurrent major depressive disorder F33.1 ; Essential hypertension I10 and Neuropathy G62.9 [place] [address] 65183- 3753 June, Hallux rigidus of right foot M20.21 and DM neuro manif type II E11.49 [place] [id number] [place] [address] 79799- 0484 May, Hyperhidrosis L74.519 ; Capsulitis of foot, right M77.51 and DM neuro manif type II E11.49 [place] [address] 70155- 5178 16 Apr, 2016 Neuropathy G62.9 [place] [address] 38960- 5917 15 Apr, 2016 Neuropathy G62.9 ; Essential hypertension I10 ; Arthritis M19.90 ; Hyperinsulinemia E16.1 and Moderate episode of recurrent major depressive disorder F33.1 [place] [address] 23053- 3354 06 Apr, 2016 Male erectile dysfunction, unspecified N52.9 [place] [address] 57713- 6127 15 Jan, 2016 Osteoarthritis of right knee, unspecified osteoarthritis type M17.[address] 31556- 2956 14 Jan, 2016 Dysthymia F34.1 and Anxiety associated with depression F41.8 [place] [address] 55698- 2309 07 Jan, 2016 Dysthymia F34.1 [place] [address] 04222- 4775 07 Jan, 2016 Essential hypertension I10 ; Neuropathy G62.9 and Dysthymia F34.1 [place] [address] 00295- 2580 Nov, Essential hypertension I10 ; Neuropathy G62.9 ; Arthritis M19.90 and Hyperinsulinemia E16.1 [place] [address] 58598- 7995 13 Nov, 2015 Neuropathy G62.9 and Essential hypertension I10 [place] [address] 48249- 1099 Oct, [place] [address] 99399- 5722 Sep, Arthritis M19.90 and Neuropathy G62.9 [facility] [id number] [place] [address] 93136- 7069 Aug, [place] [id number] [place] [address] 67991- 0823 Aug, Family history of diabetes mellitus Z83.3 ; Weight gain R63.5 and Essential hypertension I10 [place] [id number] [place] [address] 30346- 5285 Aug, Encounter to establish care Z76.89 ; Essential hypertension I10 ; Male erectile dysfunction, unspecified N52.9 ; Family history of diabetes mellitus Z83.3 and Weight gain R63.5 [place] [id number] [place] [address] 08839- 1702 Jan, Hypogonadism in male E29.1 and Routine adult health maintenance Z00.00 [facility] [id number] [place] [address] 51500 -5971 Dec, Male erectile dysfunction, unspecified N52.9 [place] [id number] [place] [address] 61807- 3833 Nov, [place] [id number] [place] [address] 16412- 8259 Oct, Hypertension 401.9 [place] [id number] [place] [address] 26380- 5025 Sep, Hypertension 401.9 and Rectal pain 569.42 [place] [id number] [place] [address] 05846- 7942 Sep, [place] [id number] [place] [address] 41497- 9316 Sep, Impotence of organic origin 607.84 [place] [id number] [place] [address] 82839- 9850 Aug, Rectal pain 569.42 [place] [address] [place] [address]- 6689 17 Aug, 2014 Hypertension 401.9 and Rectal pain 569.42 [facility] [id number], [place] [address]- 3404 Jul, Impotence of organic origin 607.84 [facility] [address], [place] [address] 2546 17 Jul, 2014 Impotence of organic origin 607.84 ; Blood in stool 578.1 and Elevated blood pressure reading without diagnosis of hypertension 796.2 [facility] [address], [place] [address]- 0374 June, Impotence of organic origin 607.84 [facility] [id number], [place] [address]- 1906 June, [facility] [id number], [place] [address]- 3325 June, [facility] [address], [place] [address]- 5850 June, Erectile dysfunction 607.84 [facility] [address], [place] [address]- 7028 May, [facility] [address], [place] [address]- 3391 May, [facility] [address], [place] [address]- 9919 Apr, [facility] [address], [place] [address]- 4185 Apr, [facility] [address], [place] [address]- 1038 Apr, [facility] [address], [place] [address] 2546 Apr, [facility] [address], [place] [address]- 5785 Apr, [facility] [id number] 8159 Apr, [facility] [address] [facility] [id number] [address]- 4810 Apr, [facility] [address], [place] [address]- 6157 Apr, [facility] [address] [address] Apr, [facility] [address], [place] [address]- 3662 Apr, [facility] [address] 0297 Apr, [facility] [address], [place] [address]- 7957 Apr, [facility] [address], [place] [address]- 5787 Apr, [facility] [address], [place] [address]- 8285 Apr, [facility] [address]- 2794 Apr, [facility] [address], [place] [address]- 6746 Mar, [facility] [id number], [place] [address]- 0064 Mar, IMMUNIZATIONS No Known Immunizations SOCIAL HISTORY Never Assessed REASON FOR VISIT referral PLAN OF CARE VITAL SIGNS MEDICATIONS Unknown [...]
--- OUTSIDE RECORDS SUMMARY | 2018-03-31 06:31 | XMS REPORT | Continuity of Care Document ---
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 04/28/2014 KELI PR MANAGER, EDGAR R 578.1 BLOOD IN STOOL 04/28/2014 KELI PR MANAGER, EDGAR R 607.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 [...] Ot Y99.8 OTHER EXTERNAL CAUSE STATUS 02/29/2016 JANNETTE HARDY DO Ot Z23 ENCOUNTER FOR IMMUNIZATION 02/29/2016 JANNETTE HARDY DO Ot Z79.84 [facility] (CURRENT) USE OF ORAL HYPOGLYC 02/29/2016 JANNETTE HARDY DO Ot Z79.899 OTHER [facility] (CURRENT) DRUG THERAPY 02/29/2016 JANNETTE HARDY DO Ot Z87.891 PERSONAL HISTORY OF NICOTINE DEPENDENCE 03/03/2016 HAYLEY PATTON JANNETTE Valadez Ot E07.89 OTHER SPECIFIED DISORDERS OF THYROID 03/03/2016 HAYLEY PATTON JANNETTE Valadez Ot E11.9 TYPE 2 DIABETES MELLITUS WITHOUT COMPLIC 03/03/2016 HAYLEY PATTON JANNETTE Valadez Ot F17.220 NICOTINE DEPENDENCE, CHEWING TOBACCO, UN 03/03/2016 HAYLEY PATTON JANNETTE Rory Ot I10 ESSENTIAL (PRIMARY) HYPERTENSION 03/03/2016 HAYLEY PATTON JANNETTE Valadez Ot J44.9 CHRONIC OBSTRUCTIVE PULMONARY DISEASE, U 03/03/2016 HAYLEY PATTON JANNETTE Valadez Ot R91.8 OTHER NONSPECIFIC ABNORMAL FINDING OF SHAR 03/03/2016 HAYLEY PATTON JANNETTE Valadez Ot S21.111A LAC W/O FB OF R FRNT WL OF THORAX W/O PE 03/03/2016 HAYLEY PATTON JANNETTE Valadez Ot W26.0XXA CONTACT WITH KNIFE, INITIAL ENCOUNTER 03/03/2016 JANNETTE HARDY DO Ot Y99.8 OTHER EXTERNAL CAUSE STATUS 03/03/2016 HAYLEY PATTON JANNETTE Valadez Ot Z23 ENCOUNTER FOR IMMUNIZATION 03/03/2016 JANNETTE HARDY DO Ot Z79.84 CLAIMS SPECIALIST (CURRENT) USE OF ORAL HYPOGLYC 03/03/2016 HAYLEY PATTON JANNETTE Valadez Ot Z79.899 OTHER [facility] (CURRENT) DRUG THERAPY 03/03/2016 HAYLEY PATTON JANNETTE Valadez Ot Z87.891 PERSONAL HISTORY OF NICOTINE DEPENDENCE 05/21/2017 MANN BELTRAN MD Ot E11.40 TYPE 2 DIABETES MELLITUS WITH DIABETIC N 05/21/2017 MANN BELTRAN MD Ot E66.9 OBESITY, UNSPECIFIED 05/21/2017 MANN BELTRAN MD, Ot E78.5 HYPERLIPIDEMIA, UNSPECIFIED 05/21/2017 MANN BELTRAN MD, Ot F17.210 NICOTINE DEPENDENCE, CIGARETTES, UNCOMPL 05/21/2017 GAULT MD, MANN R Ot F32.9 MAJOR DEPRESSIVE DISORDER, SINGLE EPISOD 05/21/2017 MANN BELTARN MD Ot F41.9 ANXIETY DISORDER, UNSPECIFIED 05/21/2017 MANN BELTRAN MD Ot I10 ESSENTIAL (PRIMARY) HYPERTENSION 05/21/2017 MANN BELTRAN MD Ot I47.1 SUPRAVENTRICULAR TACHYCARDIA 05/21/2017 MANN BELTRAN MD Ot K80.20 CALCULUS OF GALLBLADDER W/O CHOLECYSTITI 05/21/2017 MANN BELTRAN MD Ot R07.89 OTHER CHEST PAIN 05/21/2017 MANN BELTRAN MD Ot R91.8 OTHER NONSPECIFIC ABNORMAL FINDING OF SHAR 05/21/2017 MANN BELTRAN MD Ot Z79.82 [facility] (CURRENT) USE OF ASPIRIN 05/21/2017 MANN BELTRAN MD Ot Z79.84 CLAIMS SPECIALIST (CURRENT) USE OF ORAL HYPOGLYC 05/21/2017 MANN BELTRAN MD Ot Z79.899 OTHER CLAIMS SPECIALIST (CURRENT) DRUG THERAPY 05/21/2017 MANN BELTRAN MD Ot Z91.19 PATIENT'S NONCOMPLIANCE W [facility] 05/21/2017 MANN BELTRAN MD Ot E11.40 TYPE 2 DIABETES MELLITUS WITH DIABETIC N 05/21/2017 MANN BELTRAN MD Ot E66.9 OBESITY, UNSPECIFIED 05/21/2017 MANN BELTRAN MD Ot E78.5 HYPERLIPIDEMIA, UNSPECIFIED 05/21/2017 MANN BELTRAN MD Ot F17.210 NICOTINE DEPENDENCE, CIGARETTES, UNCOMPL 05/21/2017 MANN BELTRAN MD Ot F32.9 MAJOR DEPRESSIVE DISORDER, SINGLE EPISOD 05/21/2017 MANN BELTRAN MD Ot F41.9 ANXIETY DISORDER, UNSPECIFIED 05/21/2017 MANN BELTRAN MD Ot I10 ESSENTIAL (PRIMARY) HYPERTENSION 05/21/2017 MANN BELTRAN MD Ot I47.1 SUPRAVENTRICULAR TACHYCARDIA 05/21/2017 MANN BELTRAN MD Ot K80.20 CALCULUS OF GALLBLADDER W/O CHOLECYSTITI 05/21/2017 MANN BELTRAN MD Ot R07.89 OTHER CHEST PAIN 05/21/2017 MANN BELTRAN MD Ot R91.8 OTHER NONSPECIFIC ABNORMAL FINDING OF SHAR 05/21/2017 MANN BELTRAN MD, Ot Z79.82 CLAIMS SPECIALIST (CURRENT) USE OF ASPIRIN 05/21/2017 MANN BELTRAN MD, Ot Z79.84 CLAIMS SPECIALIST (CURRENT) USE OF ORAL HYPOGLYC 05/21/2017 MANN BELTRAN MD, Ot Z79.899 OTHER [facility] (CURRENT) DRUG THERAPY 05/21/2017 MANN BELTRAN MD, Ot Z91.19 PATIENT'S NONCOMPLIANCE W [facility] Procedures Code [place] [address] HEMOCCULT 05/01/2014 89111 HEMOCCULT 05/01/2014 General S Jane Ruiz 05/02/2014 05449 THERAPUTIC INJ SQ/IM 05/04/2014 80188 THERAPUTIC INJ SQ/IM 05/31/2014 Results Test Result [...] 03:35 THYROID STIMULATING HORMONE 3.21 u[iU]/mL 0.35-4.94 Hemoglobin A1c - 05/21/17 03:35 Blood hemoglobin A1C measurement (mass/volume) 5.7 % 4.0- 5.6 MEAN BLOOD GLUCOSE 117 % <=126 Encounters ACCT No. Visit Date/Time Discharge Status Pt. Type Provider Facility Loc./Unit Complaint [id number] 05/31/2014 10:09:00 05/31/2014 23:59:59 CLS Outpatient GIOVANNI MISHRA DO [id number] 05/04/2014 14:37:00 05/04/2014 23:59:59 CLS Outpatient GIOVANNI MISHRA DO [id number] 05/01/2014 17:55:00 05/01/2014 23:59:59 CLS Outpatient EDGAR DICKEY APRN [id number] 04/28/2014 15:23:00 04/28/2014 23:59:59 CLS Outpatient EDGAR DICKEY APRN [id number] 05/20/2017 11:58:00 05/21/2017 14:10:00 DIS Inpatient RUBY GREER, MANN Mcclain [facility] ICU SVT [id number] 02/29/2016 20:03:00 02/29/2016 22:40:00 DIS Emergency JANNETTE HARDY DO [facility] ER CHEST LAC [id number] 11/02/2014 12:18:00 11/02/2014 14:45:00 DIS Outpatient JANE RUIZ DO [facility] SDC ANAL FISSURE [id number] 11/01/2014 05:41:00 11/01/2014 23:59:59 CLS Outpatient JANE RUIZ DO [facility] PREOP [id number] 07/05/2014 05:46:00 07/05/2014 23:59:59 CLS Outpatient JANE RUIZ DO [facility] PREOP [id number] 07/14/2017 11:00:00 07/14/2017 23:59:59 CLS Outpatient KALPESH ARTEAGA APRN [facility]
--- NOTE | 2018-03-31 06:35 | ED Chest Pain ---
General Stated Complaint: CHEST FEELS HEAVY,HURTS TO TAKE DEEP BREATH,NAUSEA Source: patient Exam Limitations: no limitations History of Present Illness Date Seen by Provider: Mar 31, 2018 Time Seen by Provider: 06:24 Initial Comments The patient presents to ER by private conveyance with chief complaint of some episodic chest pressure and heaviness without pain under his left breast. He says it's a little worse with deep inspiration but not reproduced by palpation. He's been having a few hours at a time this time woke him up this morning. The pain to this episode started about an hour ago. Is not made better by positioning, rest. He did take 2 aspirin but is not sure the dose of them. He does not have a history of OH but he does have a history of coming by ambulance for a rapid heart rate. He says at that time he was worked up and seen by Dr. King a few times he took him off of his blood pressure medicines and put him on some different kinds of medicines but he couldn't afford them so for the past 6 months she's not been taking his blood pressure medicines, his statins or his metformin. He chews a can about every week and a half of it and quit smoking 4 years ago. He does not drink alcohol or use recreational drugs. He has no history of thyroid disorder. He feels that he's had some increased swelling in his feet and possibly some weight gain over the past week. He saw Dr. King in the clinic a few times but not recently. He has had an occasional dry nonproductive cough recently. He does not have a history of asthma but he was told he had early onset COPD. Allergies and Home Medications Allergies Coded Allergies: NKANo Known Allergies (Unverified Allergy, Mild, 04/27/09) Home Medications Aspirin 81 Mg Tab.chew, 81 MG PO DAILY Prescribed by: OLI CARVAJAL on 05/21/17 1237 Aspirin 81 Mg Tab.chew, 81 MG PO DAILY Prescribed by: CIELO BASURTO on 03/31/18 075 Lisinopril 10 Mg Tablet, 10 MG PO DAILY Prescribed by: CIELO BASURTO on 03/31/18 075 Metformin HCl 500 Mg Tab.er.24h, 500 MG PO BID, (Reported) Metformin HCl 1,000 Mg Tablet, 1,000 MG PO BID Prescribed by: CIELO BASURTO on 03/31/18 0751 Metoprolol Succinate 200 Mg Tab, 200 MG PO DAILY Prescribed by: OLI CARVAJAL on 05/21/17 1237 Metoprolol Tartrate 25 Mg Tablet, 25 MG PO BID Prescribed by: CIELO BASURTO on 03/31/18 0751 Patient Home Medication List Home Medication List Reviewed: Yes Review of Systems Review of Systems Constitutional: No chills, No fever, No malaise EENTM: No Blurred Vision, No Double Vision Respiratory: Cough; Denies Shortness of Air, Denies Wheezing Cardiovascular: See HPI, Chest Pain, Edema; Denies Irregular Heart Rate, Denies Lightheadedness, Denies Palpitations, Denies Syncope Gastrointestinal: Denies Constipated, Denies Diarrhea; Nausea; Denies Vomiting Genitourinary: Denies Discharge, Denies Drainage Musculoskeletal: No back pain, No joint pain Past Ltemlvv-Nkyhso-Hzkmuh Hx Patient Social History Alcohol Use: Denies Use Recreational Drug Use: No Smoking Status: Former Smoker Type Used: Cigarettes, Smokeless Tobacco Former Smoker, Quit: Mar 26, 2014 Recent Foreign Travel: No Contact w/Someone Who Travel: No Recent Hopitalizations: No Immunizations Up To Date Tetanus Booster (TDap): More than 5yrs Seasonal Allergies Seasonal Allergies: No Past Medical History Surgeries: Yes Appendectomy, Tonsillectomy Respiratory: Yes (BEGINNING OF COPD/ ASTHMA CHILD) Asthma, COPD Cardiac: Yes High Cholesterol, Hypertension Neurological: Yes (NEUROPATHY IN FEET) Neuropathy Sexually Transmitted Disease: No HIV/AIDS: No Genitourinary: No Gastrointestinal: No Musculoskeletal: Yes (CHRONIC BACK PAIN / "JAW PAIN AND POPPING") Chronic Back Pain Endocrine: Yes Diabetes, Insulin dep HEENT: No Tonsilitis Loss of Vision: Denies Hearing Impairment: Denies Cancer: No Psychosocial: Yes Anxiety, Depression Integumentary: No Blood Disorders: No Family Medical History No Pertinent Family Hx Physical Exam Vital Signs Vital Signs - First Documented 03/31/18 06:26 Temp 97.1 Pulse 96 Resp 20 B/P (MAP) 160/110 (127) Pulse Ox 98 O2 Delivery Room Air Capillary Refill : Height, Weight, BMI Height: 6'3.00" Weight: 264lbs. 2.0oz. 119.598584ml; 33.3 BMI Method:Stated General Appearance: Anxious, Obese HEENT: PERRL/EOMI, Pharynx Normal, Moist Mucous Membranes Neck: Full Range of Motion, Normal Inspection, Non Tender, Supple Respiratory: Chest Non Tender, Lungs Clear, Normal Breath Sounds, No Accessory Muscle Use, No Respiratory Distress Cardiovascular: Regular Rate, Rhythm, No Edema, Normal Peripheral Pulses Gastrointestinal: Normal Bowel Sounds, Non Tender, Soft Extremity: Normal Capillary Refill, Normal Inspection, Pedal Edema (trace bilateral at the ankle) Neurologic/Psychiatric: Alert, Oriented x3, No Motor/Sensory Deficits, Other ( mildly anxious affect) Progress/Results/Core Measures Results/Orders Lab Results Laboratory Tests Test 03/31/18 06:35 03/31/18 08:30 Range/Units White Blood Count 9.6 4.3-11.0 10^3/uL Red Blood Count 5.37 4.35-5.85 10^6/uL Hemoglobin 15.2 13.3-17.7 G/DL Hematocrit 44 40-54 % Mean Corpuscular Volume 81 80-99 FL Mean Corpuscular Hemoglobin 28 25-34 PG Mean Corpuscular Hemoglobin Concent 35 32-36 G/DL Red Cell Distribution Width 14.1 10.0-14.5 % Platelet Count 322 130-400 10^3/uL Mean Platelet Volume 8.8 7.4-10.4 FL Neutrophils (%) (Auto) 62 42-75 % Lymphocytes (%) (Auto) 31 12-44 % Monocytes (%) (Auto) 6 0-12 % Eosinophils (%) (Auto) 1 0-10 % Basophils (%) (Auto) 0 0-10 % Neutrophils # (Auto) 5.9 1.8-7.8 X 10^3 Lymphocytes # (Auto) 3.0 1.0-4.0 X 10^3 Monocytes # (Auto) 0.6 0.0-1.0 X 10^3 Eosinophils # (Auto) 0.1 0.0-0.3 10^3/uL Basophils # (Auto) 0.0 0.0-0.1 10^3/uL Prothrombin Time 12.6 12.2-14.7 SEC INR Comment 1.0 0.8-1.4 Activated Partial Thromboplast Time 29 24-35 SEC Sodium Level 138 135-145 MMOL/L Potassium Level 3.9 3.6-5.0 MMOL/L Chloride Level 107 98-107 MMOL/L Carbon Dioxide Level 22 21-32 MMOL/L Anion Gap 9 5-14 MMOL/L Blood Urea Nitrogen 11 7-18 MG/DL Creatinine 1.12 0.60-1.30 MG/DL Estimat Glomerular Filtration Rate > 60 BUN/Creatinine Ratio 10 Glucose Level 118 H 70-105 MG/DL Calcium Level 9.4 8.5-10.1 MG/DL Corrected Calcium 9.2 8.5-10.1 MG/DL Magnesium Level 2.2 1.8-2.4 MG/DL Total Bilirubin 0.3 0.1-1.0 MG/DL Aspartate Amino Transf (AST/SGOT) 23 5-34 U/L Alanine Aminotransferase (ALT/SGPT) 25 0-55 U/L Alkaline Phosphatase 64 40-136 U/L Myoglobin 187.2 H 10.0-92.0 NG/ML Troponin I < 0.028 < 0.028 <0.028 NG/ML B-Type Natriuretic Peptide 15.1 <100.0 PG/ML Total Protein 7.0 6.4-8.2 GM/DL Albumin 4.3 3.2-4.5 GM/DL Lipase 12 8-78 U/L My Orders Orders - SB,CIELO J Cbc With Automated Diff (03/31/18 06:30) Magnesium (03/31/18 06:30) Chest 1 View, Ap/Pa Only (03/31/18 06:30) Ekg Tracing (03/31/18 06:30) Cardiac Profile 1 (03/31/18 06:30) Comprehensive Metabolic Panel (03/31/18 06:30) Myoglobin Serum (03/31/18 06:30) Protime With Inr (03/31/18 06:30) Partial Thromboplastin Time (03/31/18 06:30) O2 (03/31/18 06:30) Monitor-Rhythm Ecg Trace Only (03/31/18 06:30) Lipid Panel (04/01/18 06:00) Aspirin Chewable Tablet (Baby Aspirin Ch (03/31/18 06:30) Nitroglycerin 0.4 Mg Btl 25's (Nitrostat (03/31/18 06:30) Saline Lock/Iv-Start (03/31/18 06:30) Lipase (03/31/18 06:30) BNP (03/31/18 06:30) Ondansetron Injection (Zofran Injectio (03/31/18 06:45) Troponin I (03/31/18 08:36) Medications Given in ED Current Medications Medications Dose Ordered Sig/Reyna Route Start Time Stop Time Status Last Admin Dose Admin Aspirin 162 mg ONCE ONCE PO 03/31/18 06:30 03/31/18 06:33 DC 03/31/18 06:40 162 MG Nitroglycerin 0.4 mg UD PRN SL 03/31/18 06:30 03/31/18 06:41 0.4 MG Ondansetron HCl 4 mg ONCE ONCE IVP 03/31/18 06:45 03/31/18 06:46 DC 03/31/18 06:43 4 MG Vital Signs/I&O 03/31/18 03/31/18 06:26 06:26 Temp 97.1 Pulse 96 Resp 20 B/P (MAP) 160/110 (127) Pulse Ox 98 O2 Delivery Room Air Room Air Progress Progress Note #1: Time: 06:43 Progress Note We are going to give him another 2 of 81 mg of aspirin since he has already taken 2 aspirin just prior to arrival. We are trying nitroglycerin first. His story could be consistent with some chest strain. Initial EKGs unremarkable except for some left axis deviation consistent with chronic hypertension. Since is worse on deep inspiration and is had a nonproductive cough COPD exacerbations also a possibility but no wheezes or diminished breath sounds are appreciated on examination. We'll get a chest x-ray. His oxygenation is in the mid 90s with initial heart rate of about 103 now 93 at rest. His blood pressure was elevated 160/110 however as he has rested it's come down to 140/90. We'll get a UDS. Historically he has used methamphetamines per medical records. Also concerning that he's been off his medications for the past 6 months with no discernible reason. No immediate familial high risk CAD. ED ACS low risk 8 points. If the patient also has: (1) EKG without new ischemic changes and (2) negative initial and 2-hour troponins, then this patient is safe for discharge to early outpatient follow-up investigation (or proceed to earlier inpatient testing). If EKG with ischemic changes or positive troponin, they are not low risk and require normal risk stratification. Echocardiogram from May [address] King: Cavity size is normal wall thickness mildly increased with concentric hypertrophy. Systolic function normal EF of 60-65%. Patient was put on beta blockers and aspirin per most recent cardiac note. Progress Note #2: Time: 07:45 Progress Note After the first nitroglycerin the patient's pressure in his chest went away. He still feeling a little pressure behind his eyes and nose. He's not having a headache, blurred vision double vision or any neurologic symptoms. He has had some sinus discharge along with his cough however is not having any facial pain on examination. The plan will be to repeat a troponin at 8:30. We'll have him follow-up with Dr. King in the clinic this week. Can also refill his metformin , lisinopril for his diabetes, a beta snehal and aspirin. He usually uses apothecary so we have informed him he can follow up with primary care and they can refill his prescription that would be more affordable. Initial ECG Impression Date: Mar 31, 2018 Initial ECG Impression Time: 06:28 Initial ECG Rate: 97 Initial ECG Rhythm: Normal Sinus Initial ECG Intervals: Normal Initial ECG Impression: Normal, Nonspecific Changes Initial ECG Comparisson: Unchanged Comment Left axis deviation consistent with LVH but no ST elevation or depression. Diagnostic Imaging Diagonstic Imaging: Xray Plain Films/CT/US/NM/MRI: chest (1v) Comments NAME: ROCÍO ARMSTRONG [facility] REC#: [id number] PHYSICIAN: CIELO BASURTO MD CC: LATOYA MILLER; CIELO BASURTO Page 1 of 1 RADIOLOGY REPORT [facility] [place], [place] CC: LATOYA MILLER; CIELO BASURTO Page 1 of 1 RADIOLOGY REPORT NAME: ROCÍO ARMSTRONG [facility] REC#: [id number] PT STATUS: REG ER : 1965 PHYSICIAN: CIELO BASURTO MD ADMIT DATE: 03/31/18/ER Signed Date of Exam: 03/31/18 CHEST 1 VIEW, AP/PA ONLY INDICATION: Chest pain COMPARISON: 05/20/2017 FINDINGS: Single view of the chest demonstrate clear lungs bilaterally. The heart size is normal. There is no pneumothorax. Osseous structures are normal. IMPRESSION: No acute findings. Normal chest. Dictated by: Dictated on workstation # [id number] Dict: 03/31/18658 Trans: 03/31/18699 Interpreted by: LATOYA MILLER Electronically signed by: LATOYA MILLER 03/31/18699 Reviewed: Reviewed by Me Departure Impression Primary Impression: Left chest pressure Disposition: 01 HOME, SELF-CARE Condition: Improved Departure-Patient Inst. Decision time for Depature: 09:14 Referrals: GIOVANNI MISHRA DO (PCP) Primary Care Physician KALPESH ARTEAGA (Family) Primary Care Physician BERTRAND KING MD FACP [facility] CCDS Add. 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 Take metoprolol 25 mg tablet twice a day. Take lisinopril 1 tablet daily. Take the metformin and break it in half take half a tablet twice a day for the first week in his lungs are tolerating without any upset stomach diarrhea then you can go to a full tablet twice a day for your diabetes. Follow-up with primary care for refills on your medications. Call Dr. King's office today and request an appointment in the next 1-2 days for your chest pressure and potentially to set up a stress test. If you're having repeat chest pressure you can take one tablet of the nitroglycerin every 5 minutes up to 3 around. If you to take 3 and a row and it does not resolve your chest pressure then you should report to the ER nearest you. Scripts Aspirin (Aspirin) 81 Mg Tab.chew 81 MG PO DAILY for 14 Days, #14 TAB 0 Refills Prov: CIELO BASURTO 03/31/18 Metoprolol Tartrate (Metoprolol Tartrate) 25 Mg Tablet 25 MG PO BID for 14 Days, #30 TAB 0 Refills Prov: CIELO BASURTO 03/31/18 Lisinopril (Lisinopril) 10 Mg Tablet 10 MG PO DAILY for 14 Days, #14 TAB 0 Refills Prov: CIELO BASURTO 03/31/18 Metformin HCl (Metformin HCl) 1,000 Mg Tablet 1000 MG PO BID for 30 Days, #30 TAB 0 Refills Prov: CIELO BASURTO 03/31/18 Copy Copies To 1: GIOVANNI MISHRA DO; BERTRAND KING MD FACP [facility] CCDS CIELO BASURTO Mar 31, 2018 06:35
[2018-03-31 06:43] LABS: BASOPHILS % (AUTO) 0 % (0-10); EOSINOPHILS # (AUTO) 0.1 10^3/uL (0.0-0.3); EOSINOPHILS % (AUTO) 1 % (0-10); HEMATOCRIT 44 % (40-54); HEMOGLOBIN 15.2 G/DL (13.3-17.7); LYMPHOCYTES % (AUTO) 31 % (12-44); MEAN CORPUSCULAR HEMOGLOBIN 28 PG (25-34); MEAN CORPUSCULAR HGB CONC 35 G/DL (32-36); MEAN CORPUSCULAR VOLUME 81 FL (80-99); MEAN PLATELET VOLUME 8.8 FL (7.4-10.4); MONOCYTES # (AUTO) 0.6 X 10^3 (0.0-1.0); MONOCYTES % (AUTO) 6 % (0-12); NEUTROPHILS # (AUTO) 5.9 X 10^3 (1.8-7.8); NEUTROPHILS % (AUTO) 62 % (42-75); PLATELET COUNT 322 10^3/uL (130-400); RED CELL DISTRIBUTION WIDTH 14.1 % (10.0-14.5); WHITE BLOOD COUNT 9.6 10^3/uL (4.3-11.0)
[2018-03-31] MEDS ORDERED: ONDANSETRON 4 MG/2 ML (SDV) Z0FRAN IVP ONE (06:45)
[2018-03-31 06:54] LABS: PROTHROMBIN TIME PATIENT 12.6 SEC (12.2-14.7)
[2018-03-31 06:59] LABS: ALANINE AMINOTRANSFERASE 25 U/L (0-55); ALBUMIN 4.3 GM/DL (3.2-4.5); ALKALINE PHOSPHATASE 64 U/L (40-136); BILIRUBIN,TOTAL 0.3 MG/DL (0.1-1.0); BUN/CREATININE RATIO 10; CALCIUM 9.4 MG/DL (8.5-10.1); CARBON DIOXIDE 22 MMOL/L (21-32); CHLORIDE 107 MMOL/L (98-107); CREATININE SERUM 1.12 MG/DL (0.60-1.30); GFR ESTIMATED > 60; GLUCOSE 118 MG/DL (70-105); LIPASE 12 U/L (8-78); MAGNESIUM 2.2 MG/DL (1.8-2.4); POTASSIUM 3.9 MMOL/L (3.6-5.0); SODIUM 138 MMOL/L (135-145)
--- NOTE | 2018-03-31 07:02 | Diagnostic Imaging Report ---
INDICATION: Chest pain COMPARISON: 05/20/2017 FINDINGS: Single view of the chest demonstrate clear lungs bilaterally. The heart size is normal. There is no pneumothorax. Osseous structures are normal. IMPRESSION: No acute findings. Normal chest. Dictated by: Dictated on workstation # [id number]
--- NOTE | 2018-03-31 07:03 | NUR ---
REPORT GIVEN TO THELMA RAZO TO ASSUME CARE OF PT @ THIS TIME.
[2018-03-31 07:05] LABS: MYOGLOBIN SERUM 187.2 NG/ML (10.0-92.0)
[2018-03-31] MEDS ORDERED: METF-399 PO (07:51)
[2018-03-31] MEDS ORDERED: METO-333 PO (07:51)
[2018-03-31] MEDS ORDERED: LISI10TA2 PO (07:51)
[2018-03-31] MEDS ORDERED: ASPI-999 PO (07:51)
[2018-03-31 09:17] VITALS: BP 147/57
== END 2018-03-31 09:17 | disposition home or self-care (01) ==
LOC: EDUNIT# 06:19 → ER 06:22
DX: R07.89 Other chest pain (principal); J44.9 Chronic obstructive pulmonary disease, unspecified; E78.00 Pure hypercholesterolemia, unspecified; I10 Essential (primary) hypertension; E11.40 Type 2 diabetes mellitus with diabetic neuropathy, unspecified; F41.9 Anxiety disorder, unspecified; F32.9 Major depressive disorder, single episode, unspecified; Z79.82 Long term (current) use of aspirin; Z79.84 Long term (current) use of oral hypoglycemic drugs; Z87.891 Personal history of nicotine dependence; Z90.49 Acquired absence of other specified parts of digestive tract; Z90.89 Acquired absence of other organs
CPT/HCPCS: 36415; 71045; 80053; 83690; 83735; 83874; 83880; 84484; 85025; 85610; 85730; 93005; 93041

== ENCOUNTER 2018-06-08 05:03 | Emergency (ER) | payer MEDICAID ==
[~2018-06-08] VITALS: Ht 190.5 cm; Wt 122.5 kg
[~2018-06-08 05:03] MED LIST changes: +METF-399 PO; +METO-333 PO
[2018-06-08] MEDS ORDERED: ADENOSINE 6 MG/2 ML (ADENOCARD) VIAL IV ONE ×4 (05:10→05:15)
--- NOTE | 2018-06-08 05:14 | NUR ---
PT CONVERTS INTO SINUS RYTHM. STATES HE FEELS MUCH BETTER. BLOOD PRESSURE ASSESSED TO HAVE IMPROVED TO 104/64
[2018-06-08 05:29] LABS: BASOPHILS % (AUTO) 0 % (0-10); EOSINOPHILS # (AUTO) 0.4 10^3/uL (0.0-0.3); EOSINOPHILS % (AUTO) 3 % (0-10); HEMATOCRIT 42 % (40-54); HEMOGLOBIN 14.1 G/DL (13.3-17.7); LYMPHOCYTES # (AUTO) 4.4 X 10^3 (1.0-4.0); LYMPHOCYTES % (AUTO) 39 % (12-44); MEAN CORPUSCULAR HEMOGLOBIN 29 PG (25-34); MEAN CORPUSCULAR HGB CONC 34 G/DL (32-36); MEAN CORPUSCULAR VOLUME 84 FL (80-99); MEAN PLATELET VOLUME 8.8 FL (7.4-10.4); MONOCYTES # (AUTO) 0.9 X 10^3 (0.0-1.0); MONOCYTES % (AUTO) 8 % (0-12); NEUTROPHILS # (AUTO) 5.6 X 10^3 (1.8-7.8); NEUTROPHILS % (AUTO) 50 % (42-75); PLATELET COUNT 341 10^3/uL (130-400); RED CELL DISTRIBUTION WIDTH 15.1 % (10.0-14.5); WHITE BLOOD COUNT 11.2 10^3/uL (4.3-11.0)
[2018-06-08 05:36] LABS: INR 0.9 (0.8-1.4); PROTHROMBIN TIME PATIENT 11.9 SEC (12.2-14.7)
[2018-06-08 05:58] LABS: ALANINE AMINOTRANSFERASE 24 U/L (0-55); ALBUMIN 4.1 GM/DL (3.2-4.5); ALKALINE PHOSPHATASE 61 U/L (40-136); BILIRUBIN,TOTAL 0.3 MG/DL (0.1-1.0); BUN/CREATININE RATIO 15; CALCIUM 9.8 MG/DL (8.5-10.1); CARBON DIOXIDE 19 MMOL/L (21-32); CHLORIDE 105 MMOL/L (98-107); CREATININE SERUM 1.25 MG/DL (0.60-1.30); GFR ESTIMATED 60; GLUCOSE 134 MG/DL (70-105); MAGNESIUM 2.4 MG/DL (1.8-2.4); POTASSIUM 4.3 MMOL/L (3.6-5.0); SODIUM 138 MMOL/L (135-145); TOTAL PROTEIN 6.8 GM/DL (6.4-8.2)
--- NOTE | 2018-06-08 06:27 | ED Chest Pain ---
General Stated Complaint: CP & SHOULDER PAIN Source: patient Exam Limitations: no limitations History of Present Illness Date Seen by Provider: Jun 08, 2018 Time Seen by Provider: 05:05 Initial Comments This 53-year-old gentleman presents to emergency room with 2-3 hours of tachycardia and chest pain that radiates to his back. He is noted to have a heart rate in the 180s that appears to be SVT. He has a prior history of SVT. 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 He had been admitted almost a year ago for workup of chest pain and SVT. Valsalva maneuvers during assessment were not successful in aborting SVT. Allergies and Home Medications Allergies Coded Allergies: GABEANo Known Allergies (Unverified Allergy, Mild, 04/27/09) Home Medications Aspirin 81 Mg Tab.chew, 81 MG PO DAILY Prescribed by: OLI CARVAJAL on 05/21/17 1237 Aspirin 81 Mg Tab.chew, 81 MG PO DAILY Prescribed by: CIELO BASURTO on 03/31/18 075 Lisinopril 10 Mg Tablet, 10 MG PO DAILY Prescribed by: CIELO BASURTO on 03/31/18750 Metformin HCl 500 Mg Tab.er.24h, 500 MG PO BID, (Reported) Metformin HCl 1,000 Mg Tablet, 1,000 MG PO BID Prescribed by: CIELO BASURTO on 03/31/18750 Metoprolol Succinate 200 Mg Tab, 200 MG PO DAILY Prescribed by: OLI CARVAJAL on 05/21/17 1237 Metoprolol Tartrate 25 Mg Tablet, 25 MG PO BID Prescribed by: CIELO BASURTO on 03/31/18 075 Patient Home Medication List Home Medication List Reviewed: Yes Review of Systems Review of Systems Constitutional: no symptoms reported EENTM: No Symptoms Reported Respiratory: No Symptoms Reported Cardiovascular: See HPI Gastrointestinal: No Symptoms Reported Genitourinary: No Symptoms Reported Musculoskeletal: no symptoms reported Skin: no symptoms reported Psychiatric/Neurological: No Symptoms Reported Endocrine: No Symptoms Reported Hematologic/Lymphatic: No Symptoms Reported Past Oywancw-Lgtxme-Kxvilz Hx Past Med/Social Hx: Reviewed and Corrections made Patient Social History Type Used: Smokeless Tobacco Former Smoker, Quit: Mar 26, 2014 2nd Hand Smoke Exposure: No Recent Foreign Travel: No Contact w/Someone Who Travel: No Recent Hopitalizations: No Immunizations Up To Date Tetanus Booster (TDap): More than 5yrs Seasonal Allergies Seasonal Allergies: No Past Medical History Surgeries: Yes Appendectomy, Tonsillectomy Respiratory: Yes (BEGINNING OF COPD/ ASTHMA CHILD) Asthma, COPD Cardiac: Yes (SVT) High Cholesterol, Hypertension Neurological: Yes (NEUROPATHY IN FEET) Neuropathy Sexually Transmitted Disease: No HIV/AIDS: No Genitourinary: No Gastrointestinal: No Musculoskeletal: Yes (CHRONIC BACK PAIN / "JAW PAIN AND POPPING") Chronic Back Pain Endocrine: Yes Diabetes, Insulin dep HEENT: No Tonsilitis Loss of Vision: Denies Hearing Impairment: Denies Cancer: No Psychosocial: Yes Anxiety, Depression Integumentary: No Blood Disorders: No Family Medical History No Pertinent Family Hx Physical Exam Vital Signs Vital Signs - First Documented 06/08/18 05:03 Temp 98.0 Pulse 189 Resp 22 B/P (MAP) 96/68 (77) Pulse Ox 97 O2 Delivery Room Air Capillary Refill : Height, Weight, BMI Height: 6'3.00" Weight: 270lbs. 2.0oz. 122.731410pv; 33.3 BMI Method:Stated General Appearance: WD/WN, Mild Distress HEENT: PERRL/EOMI, Normal ENT Inspection Neck: Normal Inspection Respiratory: Lungs Clear, Normal Breath Sounds, No Accessory Muscle Use, No Respiratory Distress Cardiovascular: No Edema, No Murmur, Tachycardia Gastrointestinal: Non Tender, Soft Extremity: Normal Inspection Neurologic/Psychiatric: Alert, Oriented x3, No Motor/Sensory Deficits, Normal Mood/Affect, band saw marker II-XII Norm as Tested Skin: Normal Color, Warm/Dry Progress/Results/Core Measures Results/Orders Lab Results Laboratory Tests Test 06/08/18 05:06 Range/Units White Blood Count 11.2 H 4.3-11.0 10^3/uL Red Blood Count 4.95 4.35-5.85 10^6/uL Hemoglobin 14.1 13.3-17.7 G/DL Hematocrit 42 40-54 % Mean Corpuscular Volume 84 80-99 FL Mean Corpuscular Hemoglobin 29 25-34 PG Mean Corpuscular Hemoglobin Concent 34 32-36 G/DL Red Cell Distribution Width 15.1 H 10.0-14.5 % Platelet Count 341 130-400 10^3/uL Mean Platelet Volume 8.8 7.4-10.4 FL Neutrophils (%) (Auto) 50 42-75 % Lymphocytes (%) (Auto) 39 12-44 % Monocytes (%) (Auto) 8 0-12 % Eosinophils (%) (Auto) 3 0-10 % Basophils (%) (Auto) 0 0-10 % Neutrophils # (Auto) 5.6 1.8-7.8 X 10^3 Lymphocytes # (Auto) 4.4 H 1.0-4.0 X 10^3 Monocytes # (Auto) 0.9 0.0-1.0 X 10^3 Eosinophils # (Auto) 0.4 H 0.0-0.3 10^3/uL Basophils # (Auto) 0.0 0.0-0.1 10^3/uL Prothrombin Time 11.9 L 12.2-14.7 SEC INR Comment 0.9 0.8-1.4 Activated Partial Thromboplast Time 29 24-35 SEC Sodium Level 138 135-145 MMOL/L Potassium Level 4.3 3.6-5.0 MMOL/L Chloride Level 105 98-107 MMOL/L Carbon Dioxide Level 19 L 21-32 MMOL/L Anion Gap 14 5-14 MMOL/L Blood Urea Nitrogen 19 H 7-18 MG/DL Creatinine 1.25 0.60-1.30 MG/DL Estimat Glomerular Filtration Rate 60 BUN/Creatinine Ratio 15 Glucose Level 134 H 70-105 MG/DL Calcium Level 9.8 8.5-10.1 MG/DL Corrected Calcium 9.7 8.5-10.1 MG/DL Magnesium Level 2.4 1.8-2.4 MG/DL Total Bilirubin 0.3 0.1-1.0 MG/DL Aspartate Amino Transf (AST/SGOT) 15 5-34 U/L Alanine Aminotransferase (ALT/SGPT) 24 0-55 U/L Alkaline Phosphatase 61 40-136 U/L Myoglobin 105.4 H 10.0-92.0 NG/ML Troponin I < 0.028 <0.028 NG/ML Total Protein 6.8 6.4-8.2 GM/DL Albumin 4.1 3.2-4.5 GM/DL My Orders Orders - LÓPEZ BARRETT MD Cbc With Automated Diff (06/08/18 05:05) Magnesium (06/08/18 05:05) Chest 1 View, Ap/Pa Only (06/08/18 05:05) Ekg Tracing (06/08/18 05:05) Cardiac Profile 1 (06/08/18 05:05) Comprehensive Metabolic Panel (06/08/18 05:05) Myoglobin Serum (06/08/18 05:05) Protime With Inr (06/08/18 05:05) Partial Thromboplastin Time (06/08/18 05:05) O2 (06/08/18 05:05) Monitor-Rhythm Ecg Trace Only (06/08/18 05:05) Lipid Panel (06/09/18 06:00) Ed Iv/Invasive Line Start (06/08/18 05:05) Adenosine Injection (Adenocard Injection (06/08/18 05:15) Adenosine Injection (Adenocard Injection (06/08/18 05:15) Adenosine Injection (Adenocard Injection (06/08/18 05:10) Adenosine Injection (Adenocard Injection (06/08/18 05:10) Medications Given in ED Current Medications Medications Dose Ordered Sig/Reyna Route Start Time Stop Time Status Last Admin Dose Admin Adenosine 6 mg ONCE ONCE IV 06/08/18 05:15 06/08/18 05:16 DC 06/08/18 05:11 6 MG Adenosine 12 mg ONCE ONCE IV 06/08/18 05:15 06/08/18 05:16 DC 06/08/18 05:13 12 MG Vital Signs/I&O 06/08/18 06/08/18 06/08/18 05:03 05:05 06:55 Temp 98.0 98.0 Pulse 189 92 Resp 22 18 B/P (MAP) 96/68 (77) 109/61 (77) Pulse Ox 97 97 O2 Delivery Room Air Room Air Room Air Progress Progress Note : Progress Note Valsalva maneuvers failed to abort SVT. Adenosine 6 mg was administered with no effect. Then adenosine 12 mg was administered and patient converted to sinus rhythm. He remained in sinus rhythm and workup was unremarkable. Follow- up with Dr. King was recommended. EKG #1: EKG Time: 05:02 Rate: 187 Rhythm: SVT ECG Impression: SVT EKG #2: EKG Time: 05:15 Rate: 103 Rhythm: S.Tach Intervals: Normal Comment Sinus tachycardia with no ST elevation or depression. No abnormal intervals or axis deviation. Diagnostic Imaging Diagonstic Imaging: Xray Plain Films/CT/US/NM/MRI: chest Comments Chest x-ray was reviewed by me and report reviewed. See report below: NAME: ROCÍO ARMSTRONG [facility] REC#: [id number] PT STATUS: REG ER : 1965 PHYSICIAN: LÓPEZ BARRETT MD ADMIT DATE: 06/08/18/ER Draft Date of Exam:06/08/18 CHEST 1 VIEW, AP/PA ONLY Patient History: Chest pain, cough. Technique: Single frontal view of the chest Comparison: 03/31/2018 FINDINGS: The lung volumes are normal. No focal consolidation is seen. No large pleural effusion or pneumothorax is seen. The cardiomediastinal silhouette is normal in size and contour. No acute osseous abnormality is seen. IMPRESSION: No acute pulmonary abnormality seen. Dictated on workstation # [id number] Dict: 06/08/18 0710 Trans: 06/08/18 0711 [facility] [id number] Interpreted by: PRESLEY POLANCO MD Departure Impression Primary Impression: SVT (supraventricular tachycardia) Disposition: 01 HOME, SELF-CARE Condition: Improved Departure-Patient Inst. Decision time for Depature: 06:25 Referrals: KALPESH ARTEAGA (PCP) [facility] Care Phys[facility] Primary Care Physician BERTRAND KING MD [facility] Patient Instructions: Supraventricular Tachycardia (SVT) Add. Discharge Instructions: Please call Dr. King's office as soon as they opened this morning and schedule a follow-up. Instruct his office staff that you were seen in the ER this morning for an episode of SVT. If SVT were returns, try bearing down or placing an ice pack on your face. If symptoms persist, return to the ER. Copy Copies To 1: BERTRAND KING MD [facility] Copies To 2: GIOVANNI MISHRA JOSHUA T MD Jun 08, 2018 06:27
[2018-06-08 06:55] VITALS: BP 109/61
--- NOTE | 2018-06-08 07:12 | Diagnostic Imaging Report ---
Patient History: Chest pain, cough. Technique: Single frontal view of the chest Comparison: 03/31/2018 FINDINGS: The lung volumes are normal. No focal consolidation is seen. No large pleural effusion or pneumothorax is seen. The cardiomediastinal silhouette is normal in size and contour. No acute osseous abnormality is seen. IMPRESSION: No acute pulmonary abnormality seen. Dictated by: Dictated on workstation # [id number]
[2018-06-09 10:04] LABS: CHOLESTEROL 205 MG/DL (< 200); HDL CHOLESTEROL 41 MG/DL (40-60); TRIGLYCERIDES 274 MG/DL (<150); VLDL CHOLESTEROL 55 MG/DL (5-40)
== END 2018-06-08 06:55 | disposition home or self-care (01) ==
LOC: EDUNIT# 05:03 → ER 05:04
DX: I47.1 Supraventricular tachycardia (principal); J44.9 Chronic obstructive pulmonary disease, unspecified; E78.00 Pure hypercholesterolemia, unspecified; I10 Essential (primary) hypertension; E11.40 Type 2 diabetes mellitus with diabetic neuropathy, unspecified; F41.9 Anxiety disorder, unspecified; F32.9 Major depressive disorder, single episode, unspecified; Z79.82 Long term (current) use of aspirin; Z79.84 Long term (current) use of oral hypoglycemic drugs; Z87.891 Personal history of nicotine dependence; Z90.49 Acquired absence of other specified parts of digestive tract; Z90.89 Acquired absence of other organs
CPT/HCPCS: 36415; 71045; 80053; 83735; 83874; 84484; 85025; 85610; 85730; 93005; 93041; 96374

== ENCOUNTER 2018-07-07 13:03 | Outpatient (RCR) | payer MEDICAID ==
[~2018-07-07 13:03] MED LIST changes: -TRAZ-189 PO; +TRAZ-222 PO
== END 2018-07-12 13:20 | disposition home or self-care (01) ==
PROVIDERS: ATTEND Nurse Practitioner Community Health
DX: M54.5 Low back pain (principal)

== ENCOUNTER 2019-08-19 22:03 | Emergency (ER) | payer SELFPAY ==
[~2019-08-19] VITALS: Ht 190.5 cm; Wt 136.4 kg
[~2019-08-19 22:03] MED LIST changes: +METF-865 PO; -METF500T8 PO; -TRAZ-222 PO; +TRZ50T PO
--- NOTE | 2019-08-19 22:20 | NUR ---
COVID SWAB SENT, PT INFORMED OF ANTICIPATED WAIT TIME FOR RESULTS.
[2019-08-19] MEDS ORDERED: RX-ALBUTEROL INHALER (VENTOLIN HFA) 18 GM IH STA (22:42)
[2019-08-19] MEDS ORDERED: RX-ALBUTEROL INHALER 8 GM HFA (VENTOLIN) IH ONE (22:53)
[2019-08-19 22:55] LABS: BASOPHILS % (AUTO) 0 % (0-10); EOSINOPHILS # (AUTO) 0.7 10^3/uL (0.0-0.3); EOSINOPHILS % (AUTO) 6 % (0-10); HEMATOCRIT 44 % (40-54); LYMPHOCYTES # (AUTO) 3.6 X 10^3 (1.0-4.0); LYMPHOCYTES % (AUTO) 34 % (12-44); MEAN CORPUSCULAR HEMOGLOBIN 29 PG (25-34); MEAN CORPUSCULAR HGB CONC 34 G/DL (32-36); MEAN CORPUSCULAR VOLUME 84 FL (80-99); MEAN PLATELET VOLUME 8.9 FL (7.4-10.4); MONOCYTES # (AUTO) 0.7 X 10^3 (0.0-1.0); MONOCYTES % (AUTO) 7 % (0-12); NEUTROPHILS # (AUTO) 5.7 X 10^3 (1.8-7.8); NEUTROPHILS % (AUTO) 53 % (42-75); PLATELET COUNT 413 10^3/uL (130-400); RED CELL DISTRIBUTION WIDTH 14.1 % (10.0-14.5); WHITE BLOOD COUNT 10.7 10^3/uL (4.3-11.0)
[2019-08-19 22:58] LABS: ALBUMIN 4.1 GM/DL (3.2-4.5); CHLORIDE 104 MMOL/L (98-107); POTASSIUM 4.3 MMOL/L (3.6-5.0); SODIUM 139 MMOL/L (135-145)
[2019-08-19 22:59] LABS: CALCIUM 9.4 MG/DL (8.5-10.1)
[2019-08-19] MEDS ORDERED: RX-ALBUTEROL INHALER 8 GM HFA (VENTOLIN) IH STA (22:59)
[2019-08-19 23:01] LABS: GLUCOSE 105 MG/DL (70-105); TOTAL PROTEIN 7.3 GM/DL (6.4-8.2)
[2019-08-19 23:02] LABS: BILIRUBIN,TOTAL 0.3 MG/DL (0.1-1.0); CARBON DIOXIDE 22 MMOL/L (21-32)
[2019-08-19 23:04] LABS: ALKALINE PHOSPHATASE 64 U/L (40-136); CREATININE SERUM 1.14 MG/DL (0.60-1.30); GFR ESTIMATED > 60
[2019-08-19 23:05] LABS: BUN/CREATININE RATIO 14
--- NOTE | 2019-08-19 23:05 | NUR ---
SPACER PROVIDED TO PT WITH ALBUTEROL INHALER. PT INSTRUCTED ON USE WITH GOOD RETURN DEMONSTRATION.
[2019-08-19 23:07] LABS: ALANINE AMINOTRANSFERASE 25 U/L (0-55)
--- NOTE | 2019-08-20 00:11 | ED General ---
General Chief Complaint: Respiratory Problems Stated Complaint: SOB,COUGH Nursing Triage Note: INTERMITTANT SOA X4 DAYS WORSE TODAY. PRODUCTIVE COUGH. NO FEVER Nursing Sepsis Screen: No Definite Risk Source of Information: Patient Exam Limitations: No Limitations History of Present Illness Date Seen by Provider: Aug 19, 2019 Time Seen by Provider: 22:42 Initial Comments This 54-year-old gentleman presents to the emergency room with 4 days of cough productive of clear sputum, wheezing, shortness of breath, and feeling ill. He denies any known exposures to COVID-19 but has been visiting the [place]. He is afebrile at present but mildly tachycardic. He has pleuritic chest pain when coughing or taking deep breaths. He otherwise denies chest pain. Allergies and Home Medications Allergies Coded Allergies: NKANo Known Allergies (Unverified Allergy, Mild, 04/27/09) Home Medications Aspirin 81 Mg Tab.chew, 81 MG PO DAILY Prescribed by: OLI CARVAJAL on 05/21/17 1237 Lisinopril 10 Mg Tablet, 10 MG PO DAILY Prescribed by: CIELO BASURTO on 03/31/18 0751 Metformin HCl 500 Mg Tab.er.24h, 500 MG PO BID, (Reported) Patient Home Medication List Home Medication List Reviewed: Yes Review of Systems Review of Systems Constitutional: see HPI EENTM: no symptoms reported Respiratory: see HPI Cardiovascular: see HPI Gastrointestinal: no symptoms reported Genitourinary: no symptoms reported Musculoskeletal: no symptoms reported Skin: no symptoms reported Psychiatric/Neurological: No Symptoms Reported Hematologic/Lymphatic: No Symptoms Reported Immunological/Allergic: no symptoms reported Past Mpszyqc-Stsmvu-Ekjkkd Hx Past Med/Social Hx: Reviewed Nursing Past Med/Soc Hx Patient Social History Alcohol Use: Rarely Uses Recreational Drug Use: No Smoking Status: Never a Smoker Type Used: Smokeless Tobacco Former Smoker, Quit: Mar 26, 2014 2nd Hand Smoke Exposure: No Recent Foreign Travel: No Contact w/Someone Who Travel: No Recent Infectious Disease Expo: No Recent Hopitalizations: No Physical Abuse: No Sexual Abuse: No Mistreated: No Fear: No Immunizations Up To Date Tetanus Booster (TDap): Unknown Seasonal Allergies Seasonal Allergies: No Past Medical History Surgeries: Yes Appendectomy, Tonsillectomy Respiratory: Yes Asthma, COPD Cardiac: Yes (SVT) High Cholesterol, Hypertension Neurological: Yes Neuropathy Sexually Transmitted Disease: No HIV/AIDS: No Genitourinary: No Gastrointestinal: No Musculoskeletal: Yes Chronic Back Pain Endocrine: Yes Diabetes, Insulin dep HEENT: No Tonsilitis Loss of Vision: Denies Hearing Impairment: Denies Cancer: No Psychosocial: Yes Anxiety, Depression Integumentary: No Blood Disorders: No Family Medical History No Pertinent Family Hx Physical Exam Vital Signs Vital Signs - First Documented 08/19/19 22:08 Temp 36.6 Pulse 101 Resp 32 B/P (MAP) 146/86 (106) Pulse Ox 97 O2 Delivery Room Air Capillary Refill : Less Than 3 Seconds Height, Weight, BMI Height: 6'3.00" Weight: 270lbs. 2.0oz. 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3-11.0 10^3/uL Red Blood Count 5.24 4.35-5.85 10^6/uL Hemoglobin 15.0 13.3-17.7 G/DL Hematocrit 44 40-54 % Mean Corpuscular Volume 84 80-99 FL Mean Corpuscular Hemoglobin 29 25-34 PG Mean Corpuscular Hemoglobin Concent 34 32-36 G/DL Red Cell Distribution Width 14.1 10.0-14.5 % Platelet Count 413 H 130-400 10^3/uL Mean Platelet Volume 8.9 7.4-10.4 FL Neutrophils (%) (Auto) 53 42-75 % Lymphocytes (%) (Auto) 34 12-44 % Monocytes (%) (Auto) 7 0-12 % Eosinophils (%) (Auto) 6 0-10 % Basophils (%) (Auto) 0 0-10 % Neutrophils # (Auto) 5.7 1.8-7.8 X 10^3 Lymphocytes # (Auto) 3.6 1.0-4.0 X 10^3 Monocytes # (Auto) 0.7 0.0-1.0 X 10^3 Eosinophils # (Auto) 0.7 H 0.0-0.3 10^3/uL Basophils # (Auto) 0.0 0.0-0.1 10^3/uL D-Dimer < 0.27 0.00-0.49 UG/ML Sodium Level 139 135-145 MMOL/L Potassium Level 4.3 3.6-5.0 MMOL/L Chloride Level 104 98-107 MMOL/L Carbon Dioxide Level 22 21-32 MMOL/L Anion Gap 13 5-14 MMOL/L Blood Urea Nitrogen 16 7-18 MG/DL Creatinine 1.14 0.60-1.30 MG/DL Estimat Glomerular Filtration Rate > 60 BUN/Creatinine Ratio 14 Glucose Level 105 70-105 MG/DL Calcium Level 9.4 8.5-10.1 MG/DL Corrected Calcium 9.3 8.5-10.1 MG/DL Total Bilirubin 0.3 0.1-1.0 MG/DL Aspartate Amino Transf (AST/SGOT) 18 5-34 U/L Alanine Aminotransferase (ALT/SGPT) 25 0-55 U/L Alkaline Phosphatase 64 40-136 U/L C-Reactive Protein High Sensitivity 0.97 H 0.00-0.50 MG/DL B-Type Natriuretic Peptide < 10.0 <100.0 PG/ML Total Protein 7.3 6.4-8.2 GM/DL Albumin 4.1 3.2-4.5 GM/DL My Orders Orders - LÓPEZ BARRETT MD Chest 1 View, Ap/Pa Only (08/19/19 22:42) BNP (08/19/19 22:42) Fibrin Degradation Products (08/19/19 22:42) Hs C Reactive Protein (08/19/19 22:42) Cbc With Automated Diff (08/19/19 22:42) Comprehensive Metabolic Panel (08/19/19 22:42) Ed Iv/Invasive Line Start (08/19/19 22:42) Rx-Albuterol Inhaler (Rx-Ventolin Hfa) (08/19/19 22:42) Coronavirus Sars-Cov-2 So 2019 (08/19/19 22:45) Rx-Albuterol Inhaler (Rx-Ventolin Hfa In (08/19/19 22:53) Rx-Albuterol Inhaler (Rx-Ventolin Hfa In (08/19/19 22:59) Vital Signs/I&O Capillary Refill : Less Than 3 Seconds Blood Pressure Mean: 106 Progress Note : Progress Note Patient received albuterol INH times for which greatly improved his symptoms. Workup was otherwise unremarkable. COVID-19 precautions discussed. COVID swab was obtained. Diagnostic Imaging Diagonstic Imaging: Xray Plain Films/CT/US/NM/MRI: chest Comments Chest x-ray viewed by me. Report not yet available. No acute abnormalities appreciated. Departure Impression Primary Impression: Acute bronchitis Qualified Codes: J20.9 - Acute bronchitis, unspecified Additional Impression: Pleuritic chest pain Disposition: 01 HOME, SELF-CARE Condition: Improved Departure-Patient Inst. Decision time for Depature: 00:08 Referrals: KALPESH ARTEAGA (PCP) Primary Care Physician [facility] (Family) Primary Care Physician Patient Instructions: Acute Bronchitis, Adult (DC), Coronavirus Disease 2019 (COVID-19) (DC) Add. Discharge Instructions: Drink plenty of clear liquids. Avoid inhaled irritants such as smoke or dust. Use your inhaler up to 4 puffs every 4 hours as needed for wheezing or shortness of breath. For chest discomfort try Tylenol (acetaminophen) up to 1000 mg every 6 hours as needed. Use ibuprofen up to 400 mg every 6 hours as needed for pain not controlled by Tylenol. You must home isolate for 3 days after symptoms resolve if your vergara virus test is negative. If your vergara virus test is positive, you must home isolate for 14 days. Call or return to the emergency room if you have worsening symptoms despite following these instructions. All discharge instructions reviewed with patient and/or family. Voiced understanding. Work/School Note: Work Release Form Date Seen in the Emergency Department: Aug 20, 2019 Return to Work: Aug 24, 2019 Other Restrictions Listed Below: Isolate for 3 days after symptoms resolve if COVID test is negative. Restrictions: Home isolate for 14 days if COVID test is positive. LÓPEZ BARRETT MD Aug 20, 2019 00:11
[2019-08-20 00:15] VITALS: BP 138/85
--- NOTE | 2019-08-20 07:39 | Diagnostic Imaging Report ---
Indication: Dyspnea for 4 days, worsening. Comparison: 06/08/2018. Discussion: Single portable upright view of the chest was obtained. Normal heart size. No consolidation, pleural fluid, or pneumothorax. No osseous abnormality. Impression: 1. Negative portable chest. Dictated by: Dictated on workstation # [id number]
== END 2019-08-20 00:18 | disposition home or self-care (01) ==
LOC: EDUNIT# 22:03 → ER 22:05
DX: J20.9 Acute bronchitis, unspecified (principal); R07.81 Pleurodynia; J44.0 Chronic obstructive pulmonary disease with (acute) lower respiratory infection; I10 Essential (primary) hypertension; E11.40 Type 2 diabetes mellitus with diabetic neuropathy, unspecified; Z20.828 Contact with and (suspected) exposure to other viral communicable diseases; Z79.82 Long term (current) use of aspirin; Z79.84 Long term (current) use of oral hypoglycemic drugs; Z87.891 Personal history of nicotine dependence
CPT/HCPCS: 71045; 80053; 83880; 85025; 85379; 86141; 94640; 99284; U0002; 36415; 87635

== ENCOUNTER 2020-03-27 13:19 | Emergency (ER) | payer SELFPAY ==
[~2020-03-27] VITALS: Ht 190 cm; Wt 127.0 kg
[~2020-03-27 13:19] MED LIST changes: -LISI-552 PO; -LISI10TA2 PO; +LISI10TA25 PO; +LISI20TA26 PO
[2020-03-27] MEDS ORDERED: LACTATED RINGERS 1,000 ML IV ONE ×2 (13:56→14:00)
[2020-03-27 14:08] LABS: BASOPHILS % (AUTO) 0 % (0-10); EOSINOPHILS # (AUTO) 0.3 10^3/uL (0.0-0.3); EOSINOPHILS % (AUTO) 3 % (0-10); HEMATOCRIT 43 % (40-54); HEMOGLOBIN 14.6 g/dL (13.3-17.7); LYMPHOCYTES # (AUTO) 1.3 10^3/uL (1.0-4.0); LYMPHOCYTES % (AUTO) 15 % (12-44); MEAN CORPUSCULAR HEMOGLOBIN 28 pg (25-34); MEAN CORPUSCULAR HGB CONC 34 g/dL (32-36); MEAN CORPUSCULAR VOLUME 83 fL (80-99); MEAN PLATELET VOLUME 8.8 fL (9.0-12.2); MONOCYTES # (AUTO) 0.4 10^3/uL (0.0-1.0); MONOCYTES % (AUTO) 4 % (0-12); NEUTROPHILS # (AUTO) 6.6 10^3/uL (1.8-7.8); NEUTROPHILS % (AUTO) 77 % (42-75); PLATELET COUNT 275 10^3/uL (130-400); WHITE BLOOD COUNT 8.6 10^3/uL (4.3-11.0)
[2020-03-27 14:10] LABS: BILIRUBIN,URINE NEGATIVE (NEGATIVE); CLARITY,URINE CLEAR; COLOR,URINE YELLOW; GLUCOSE, URINE (UA) NEGATIVE (NEGATIVE); KETONES,URINE NEGATIVE (NEGATIVE); LEUKOCYTE ESTERASE ,URINE NEGATIVE (NEGATIVE); NITRITE,URINE NEGATIVE (NEGATIVE); PH,URINE 5.5 (5-9); PROTEIN,URINE NEGATIVE (NEGATIVE)
[2020-03-27 14:19] LABS: CHLORIDE 107 MMOL/L (98-107); POTASSIUM 3.7 MMOL/L (3.6-5.0); SODIUM 139 MMOL/L (135-145)
[2020-03-27 14:20] LABS: BACTERIA,URINE NEGATIVE /HPF; SQUAMOUS EPITHELIAL CELL,UR 0-2 /HPF
[2020-03-27 14:21] LABS: GLUCOSE 146 MG/DL (70-105)
[2020-03-27 14:22] LABS: CARBON DIOXIDE 20 MMOL/L (21-32); FIBRIN DEGRADATION PRODUCTS 0.36 UG/ML (0.00-0.49); INR 0.9 (0.8-1.4); PROTHROMBIN TIME PATIENT 12.7 SEC (12.2-14.7)
[2020-03-27 14:23] LABS: BILIRUBIN,TOTAL 0.3 MG/DL (0.1-1.0)
[2020-03-27 14:24] LABS: ALKALINE PHOSPHATASE 65 U/L (40-136)
[2020-03-27 14:25] LABS: CREATININE SERUM 0.96 MG/DL (0.60-1.30); GFR ESTIMATED > 60
[2020-03-27 14:26] LABS: BUN/CREATININE RATIO 10
[2020-03-27 14:28] LABS: ALANINE AMINOTRANSFERASE 25 U/L (0-55)
--- NOTE | 2020-03-27 14:55 | Diagnostic Imaging Report ---
EXAMINATION: Chest 1 view. HISTORY: Cough, congestion, shortness of breath. COMPARISON: Chest radiograph 08/19/2019 FINDINGS: Heart size and pulmonary vasculature are normal. The lungs are clear without consolidation, pleural effusion, or pneumothorax. The osseous structures are intact. IMPRESSION: 1. No acute radiographic abnormality in the chest. Dictated by: Dictated on workstation # [id number]
--- NOTE | 2020-03-27 15:14 | ED General ---
General Chief Complaint: Respiratory Problems Stated Complaint: SOB Nursing Triage Note: Pt c/o SOA, cough, congestion that started last night. Pt also reports low back pain worse w/ coughing. Pt reports he was tested for COVID 3 weeks ago but did not receive results. Nursing Sepsis Screen: No Definite Risk Source of Information: Patient Exam Limitations: No Limitations History of Present Illness Date Seen by Provider: Mar 27, 2020 Time Seen by Provider: 13:35 Initial Comments This 55-year-old gentleman presents to the emergency room with complaints of shortness of breath, sore throat, cough, wheezing, and right lower back pain. Pain is worse with coughing. He is not aware of any fever. He has no known Covid exposures. Symptoms started last night. He has been using albuterol nebulizer treatments at home for the wheezing but he does not have a rescue inhaler. He is notably tachycardic and tachypneic on presentation. Allergies and Home Medications Allergies Coded Allergies: NKANo Known Allergies (Unverified Allergy, Mild, 04/27/09) Home Medications Aspirin 81 Mg Tab.chew, 81 MG PO DAILY Prescribed by: OLI CARVAJAL on 05/21/17 1237 Benzonatate 100 Mg Capsule, 200 MG PO TID Prescribed by: LÓPEZ CENTENO on 03/27/20 1523 Lisinopril 10 Mg Tablet, 10 MG PO DAILY Prescribed by: CIELO BASURTO on 03/31/18 0751 Metformin HCl 500 Mg Tab.er.24h, 500 MG PO BID, (Reported) Patient Home Medication List Home Medication List Reviewed: Yes Review of Systems Review of Systems Constitutional: no symptoms reported EENTM: see HPI Respiratory: see HPI Cardiovascular: see HPI Gastrointestinal: no symptoms reported Genitourinary: no symptoms reported Musculoskeletal: see HPI Skin: no symptoms reported Psychiatric/Neurological: No Symptoms Reported Hematologic/Lymphatic: No Symptoms Reported Immunological/Allergic: no symptoms reported Past Wemdfea-Xnlybx-Sbufdt Hx Past Med/Social Hx: Reviewed Nursing Past Med/Soc Hx Patient Social History Alcohol Use: Denies Use Smoking Status: Former Smoker Type Used: Smokeless Tobacco Former Smoker, Quit: Mar 26, 2014 2nd Hand Smoke Exposure: No Recent Infectious Disease Expo: No Recent Hopitalizations: No Immunizations Up To Date Tetanus Booster (TDap): Unknown Seasonal Allergies Seasonal Allergies: No Past Medical History Surgeries: Yes Appendectomy, Tonsillectomy Respiratory: Yes Asthma, COPD Cardiac: Yes (SVT) High Cholesterol, Hypertension Neurological: Yes Neuropathy Sexually Transmitted Disease: No HIV/AIDS: No Genitourinary: No Gastrointestinal: No Musculoskeletal: Yes Chronic Back Pain Endocrine: Yes Diabetes, Insulin dep HEENT: No Tonsilitis Loss of Vision: Denies Hearing Impairment: Denies Cancer: No Psychosocial: Yes Anxiety, Depression Integumentary: No Blood Disorders: No Family Medical History No Pertinent Family Hx Physical Exam Vital Signs Vital Signs - First Documented 03/27/20 13:33 Temp 36.8 Pulse 122 Resp 20 B/P (MAP) 157/93 (114) Pulse Ox 98 O2 Delivery Room Air Capillary Refill : Less Than 3 Seconds Height, Weight, BMI Height: 6'3.00" Weight: 270lbs. 2.0oz. 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 Skin: Normal Color, Warm/Dry Focused Exam Lactate Level 03/27/20 13:50: Lactic Acid Level 2.21*H Lactic Acid Level Progress/Results/Core Measures Suspected Sepsis Recent Fever Within 48 Hours: No Infection Criteria Present: Suspected New Infection New/Unexplained Altered Menta: No Sepsis Screen: No Definite Risk SIRS Temperature: Pulse: 122 Respiratory Rate: 20 Laboratory Tests 03/27/20 13:50: White Blood Count 8.6 Blood Pressure 157 /93 Mean: 114 03/27/20 13:50: Lactic Acid Level 2.21*H Laboratory Tests 03/27/20 13:50: Creatinine 0.96, INR Comment 0.9, Platelet Count 275, Total Bilirubin 0.3 Results/Orders Lab Results Laboratory Tests Test 03/27/20 13:40 03/27/20 13:50 03/27/20 15:20 Range/Units Coronavirus 2019 (CINDI) Negative Negative White Blood Count 8.6 4.3-11.0 10^3/uL Red Blood Count 5.16 4.30-5.52 10^6/uL Hemoglobin 14.6 13.3-17.7 g/dL Hematocrit 43 40-54 % Mean Corpuscular Volume 83 80-99 fL Mean Corpuscular Hemoglobin 28 25-34 pg Mean Corpuscular Hemoglobin Concent 34 32-36 g/dL Red Cell Distribution Width 13.4 10.0-14.5 % Platelet Count 275 130-400 10^3/uL Mean Platelet Volume 8.8 L 9.0-12.2 fL Immature Granulocyte % (Auto) 0 % Neutrophils (%) (Auto) 77 H 42-75 % Lymphocytes (%) (Auto) 15 12-44 % Monocytes (%) (Auto) 4 0-12 % Eosinophils (%) (Auto) 3 0-10 % Basophils (%) (Auto) 0 0-10 % Neutrophils # (Auto) 6.6 1.8-7.8 10^3/uL Lymphocytes # (Auto) 1.3 1.0-4.0 10^3/uL Monocytes # (Auto) 0.4 0.0-1.0 10^3/uL Eosinophils # (Auto) 0.3 0.0-0.3 10^3/uL Basophils # (Auto) 0.0 0.0-0.1 10^3/uL Immature Granulocyte # (Auto) 0.0 0.0-0.1 10^3/uL Prothrombin Time 12.7 12.2-14.7 SEC INR Comment 0.9 0.8-1.4 Activated Partial Thromboplast Time 26 24-35 SEC D-Dimer 0.36 0.00-0.49 UG/ML Urine Color YELLOW Urine Clarity CLEAR Urine pH 5.5 5-9 Urine Specific [place] 1.010 L 1.016-1.022 Urine Protein NEGATIVE NEGATIVE Urine Glucose (UA) NEGATIVE NEGATIVE Urine Ketones NEGATIVE NEGATIVE Urine Nitrite NEGATIVE NEGATIVE Urine Bilirubin NEGATIVE NEGATIVE Urine Urobilinogen 0.2 < = 1.0 MG/DL Urine Leukocyte Esterase NEGATIVE NEGATIVE Urine RBC (Auto) NEGATIVE NEGATIVE Urine RBC NONE /HPF Urine WBC NONE /HPF Urine Squamous Epithelial Cells 0-2 /HPF Urine Crystals NONE /LPF Urine Bacteria NEGATIVE /HPF Urine Casts NONE /LPF Urine White Blood Cell Casts /LPF Urine Mucus NEGATIVE /LPF Urine Culture Indicated NO Sodium Level 139 135-145 MMOL/L Potassium Level 3.7 3.6-5.0 MMOL/L Chloride Level 107 98-107 MMOL/L Carbon Dioxide Level 20 L 21-32 MMOL/L Anion Gap 12 5-14 MMOL/L Blood Urea Nitrogen 10 7-18 MG/DL Creatinine 0.96 0.60-1.30 MG/DL Estimat Glomerular Filtration Rate > 60 BUN/Creatinine Ratio 10 Glucose Level 146 H 70-105 MG/DL Lactic Acid Level 2.21 *H 0.50-2.00 MMOL/L Calcium Level 9.0 8.5-10.1 MG/DL Corrected Calcium 9.0 8.5-10.1 MG/DL Total Bilirubin 0.3 0.1-1.0 MG/DL Aspartate Amino Transf (AST/SGOT) 13 5-34 U/L Alanine Aminotransferase (ALT/SGPT) 25 0-55 U/L Alkaline Phosphatase 65 40-136 U/L Lactate Dehydrogenase 155 125-220 U/L C-Reactive Protein High Sensitivity 1.66 H 0.00-0.50 MG/DL Total Protein 7.0 6.4-8.2 GM/DL Albumin 4.0 3.2-4.5 GM/DL Procalcitonin 0.08 <0.10 NG/ML Micro Results Microbiology 03/27/20 Influenza Types A,B Antigen (TONIO) - Final, Complete My Orders Orders - LÓPEZ BARRETT MD Fibrin Degradation Products (03/27/20 13:44) Procalcitonin (Pct) (03/27/20 13:44) Hs C Reactive Protein (03/27/20 13:44) LDH (03/27/20 13:44) Covid 19 Inhouse Test (03/27/20 13:44) Cbc With Automated Diff (03/27/20 13:44) Comprehensive Metabolic Panel (03/27/20 13:44) Blood Culture (03/27/20 13:44) Sputum Culture (03/27/20 13:44) Urinalysis (03/27/20 13:44) Urine Culture (03/27/20 13:44) Protime With Inr (03/27/20 13:44) Partial Thromboplastin Time (03/27/20 13:44) Chest 1 View, Ap/Pa Only (03/27/20 13:44) Ed Iv/Invasive Line Start (03/27/20 13:44) Ed Iv/Invasive Line Start (03/27/20 13:44) Vital Signs Adult Sepsis Patie Q15M (03/27/20 13:44) O2 (03/27/20 13:44) Remove Rings In Anticipation O (03/27/20 13:44) Lactic Acid Analyzer (03/27/20 13:44) Influenza A And B Antigens (03/27/20 13:44) Lactated Ringers (Lr 1000 Ml Iv Solution (03/27/20 14:00) Lactated Ringers (Lr 1000 Ml Iv Solution (03/27/20 13:56) Ketorolac Injection (Toradol Injection) (03/27/20 15:15) Albuterol Inhaler (Ventolin Hfa) (03/27/20 18:00) Coronavirus Sars-Cov-2 So 2018 (03/27/20 15:04) Medications Given in ED Current Medications Medications Dose Ordered Sig/Reyna Route Start Time Stop Time Status Last Admin Dose Admin Albuterol Sulfate RTQ4HR ONCE IH 03/27/20 18:00 03/27/20 16:01 DC 03/27/20 15:15 1 GM Ketorolac Tromethamine 30 mg ONCE ONCE IVP 03/27/20 15:15 03/27/20 15:16 DC 03/27/20 15:14 30 MG Lactated Ringer's 1,000 ml @ 0 mls/hr Q0M ONCE IV 03/27/20 14:00 03/27/20 14:01 DC 03/27/20 14:04 1,000 MLS/HR Vital Signs/I&O 03/27/20 03/27/20 03/27/20 13:33 15:14 15:50 Temp 36.8 36.8 36.8 Pulse 122 104 Resp 20 20 B/P (MAP) 157/93 (114) 155/101 (114) Pulse Ox 98 98 O2 Delivery Room Air Room Air Capillary Refill : Less Than 3 Seconds Blood Pressure Mean: 114 Progress Note : Progress Note Patient received a liter of IV fluid. Work-up revealed no significant abnormalities. Symptoms seem suspicious for COVID-19. PCR swab was obtained for further evaluation. Toradol was given for pain. Albuterol inhaler was given for wheezing. Patient felt improved upon discharge. Diagnostic Imaging Diagonstic Imaging: Xray Plain Films/CT/US/NM/MRI: chest Comments Chest x-ray viewed by me and report reviewed. See report below: NAME: ROCÍO ARMSTRONG [facility] REC#: [id number] PT STATUS: REG ER : 1965 PHYSICIAN: LÓPEZ BARRETT MD ADMIT DATE: 03/27/20/ER Signed Date of Exam:03/27/20 CHEST 1 VIEW, AP/PA ONLY EXAMINATION: Chest 1 view. HISTORY: Cough, congestion, shortness of breath. COMPARISON: Chest radiograph 08/19/2019 FINDINGS: Heart size and pulmonary vasculature are normal. The lungs are clear without consolidation, pleural effusion, or pneumothorax. The osseous structures are intact. IMPRESSION: 1. No acute radiographic abnormality in the chest. Dictated by: Dictated on workstation # [id number] Dict: 03/27/20 1453 Trans: 03/27/20 1502 [facility] [id number] Interpreted by: VLADIMIR MIRZA DO Electronically signed by: VLADIMIR MIRZA DO 03/27/20 1502 Departure Impression Primary Impression: Flu-like symptoms Additional Impressions: Person under investigation for COVID-19 Low back pain Qualified Codes: M54.5 - Low back pain Disposition: 01 HOME, SELF-CARE Condition: Improved Departure-Patient Inst. Decision time for Depature: 15:11 Referrals: [facility] (PCP) Primary Care Physician KALPESH ARTEAGA (Family) Primary Care Physician Patient Instructions: Coronavirus Disease 2019 (COVID-19) Overview Add. Discharge Instructions: For pain you may take Tylenol up to 1000 mg every 6 hours as needed and ibuprofen up to 600 mg every 6 hours as needed. Use your inhaler or nebulizer for wheezing and shortness of breath. Use your nebulizer once every 4 hours or your inhaler up to 4 puffs in a 4-hour period of time. Use Tessalon Perles or an [id number]-khu-ywqajgl cough suppressant if needed to control cough. Remain in quarantine until the result of your COVID-19 PCR test is known. This should be available in 24 to 48 hours. Call with questions or concerns. Return to the emergency room if you have worsening symptoms. All discharge instructions reviewed with patient and/or family. Voiced understanding. Scripts Benzonatate (TESSALON PERLES) 100 Mg Capsule 200 MG PO TID, #20 CAP Prov: LÓPEZ BARRETT MD 03/27/20 Work/School Note: Work Release Form Date Seen in the Emergency Department: Mar 27, 2020 Return to Work: Mar 29, 2020 Other Restrictions Listed Below: May return to work if COVID-19 test negative. Restrictions: Follow health department quarantine instructions if Covid 19 test positive. LÓPEZ BARRETT MD Mar 27, 2020 15:14
[2020-03-27] MEDS ORDERED: KETOROLAC 30 MG/ML VIAL IVP ONE (15:15)
[2020-03-27] MEDS ORDERED: BENZ100C18 PO (15:23)
[2020-03-27 15:50] VITALS: BP 155/101
[2020-03-27] MEDS ORDERED: RT-ALBUTEROL INHALER HFA (VENTOLIN HFA) 18 GM IH ONE (18:00)
== END 2020-03-27 15:50 | disposition home or self-care (01) ==
LOC: EDUNIT# 13:19 → ER 13:20
DX: R06.02 Shortness of breath (principal); R05 Cough; R09.81 Nasal congestion; R06.2 Wheezing; J02.9 Acute pharyngitis, unspecified; M54.5 Low back pain; I10 Essential (primary) hypertension; E11.9 Type 2 diabetes mellitus without complications; Z20.822 Contact with and (suspected) exposure to COVID-19; Z87.891 Personal history of nicotine dependence; Z79.4 Long term (current) use of insulin; Z79.82 Long term (current) use of aspirin
CPT/HCPCS: 71045; 80053; 81000; 83605; 83615; 84145; 85025; 85379; 85610; 85730; 86141; 87040; 87088; 87804; U0002; 36415; 87635

== ENCOUNTER 2021-04-22 00:52 | Emergency (ER) | payer MEDICAID, OTHER ==
[~2021-04-22] VITALS: Ht 190.5 cm; Wt 122.4 kg
[~2021-04-22 00:52] MED LIST changes: +BENZ100C18 PO; -SULF1TAB35 PO; +SULF1TAB38 PO
[2021-04-22] MEDS ORDERED: ADENOSINE 6 MG/2 ML (ADENOCARD) VIAL IV ONE ×2 (01:04→01:08)
[2021-04-22 01:13] LABS: BASOPHILS # (AUTO) 0.1 10^3/uL (0.0-0.1); BASOPHILS % (AUTO) 1 % (0-10); EOSINOPHILS # (AUTO) 0.4 10^3/uL (0.0-0.3); EOSINOPHILS % (AUTO) 5 % (0-10); HEMATOCRIT 46 % (40-54); HEMOGLOBIN 15.3 g/dL (13.3-17.7); LYMPHOCYTES # (AUTO) 3.4 10^3/uL (1.0-4.0); LYMPHOCYTES % (AUTO) 39 % (12-44); MEAN CORPUSCULAR HEMOGLOBIN 28 pg (25-34); MEAN CORPUSCULAR HGB CONC 33 g/dL (32-36); MEAN CORPUSCULAR VOLUME 86 fL (80-99); MEAN PLATELET VOLUME 8.8 fL (9.0-12.2); MONOCYTES # (AUTO) 0.5 10^3/uL (0.0-1.0); MONOCYTES % (AUTO) 5 % (0-12); NEUTROPHILS # (AUTO) 4.4 10^3/uL (1.8-7.8); NEUTROPHILS % (AUTO) 50 % (42-75); PLATELET COUNT 286 10^3/uL (130-400); WHITE BLOOD COUNT 8.8 10^3/uL (4.3-11.0)
[2021-04-22] MEDS ORDERED: meTOprolol 5 MG/5 ML (LOPRESSOR) VIAL IV ONE (01:15)
[2021-04-22] MEDS ORDERED: meTOproloL SUCCINATE 50 MG (TOPROL XL) TAB PO SCH (01:15)
[2021-04-22] MEDS ORDERED: ASPIRIN 81 MG CHEW (CHILDREN'S ASA) PO STA (01:21)
[2021-04-22 01:26] LABS: INR 0.9 (0.8-1.4); PROTHROMBIN TIME PATIENT 12.7 SEC (12.2-14.7)
[2021-04-22 01:34] LABS: BILIRUBIN,TOTAL 0.4 MG/DL (0.1-1.0); CALCIUM 9.6 MG/DL (8.5-10.1); CREATININE SERUM 1.2 MG/DL (0.60-1.30); MAGNESIUM 1.9 MG/DL (1.6-2.4); POTASSIUM 3.9 MMOL/L (3.6-5.0); TOTAL PROTEIN 6.7 GM/DL (6.4-8.2)
--- NOTE | 2021-04-22 02:55 | ED Chest Pain ---
General Chief Complaint: Cardiac/General Problems Stated Complaint: CHEST PAIN, HAS CARDIAC HISTORY Nursing Triage Note: pt ambulatory to room 6. pt states Chest Pain started two hours prior to arrival after eating cereal. pt states the pain is a buring sensation that radiates to both shoulders and down arms. Source: patient Exam Limitations: no limitations History of Present Illness Date Seen by Provider: Apr 22, 2021 Time Seen by Provider: 00:58 Initial Comments Here with report of chest pain that started about 2 hours prior to arrival. [place] palpitations at that time. Had his listen to his chest and she confirmed fast heart rate. States that he has burning sensation in both arms that radiates downwards. Denies nausea, vomiting or diaphoresis. Had similar episode and had to have medicine that stopped his heart per the patient. He was given another medicine at that time to help keep his rate controlled but is only on lisinopril now. Timing/Duration: 1-3 hours Severity/Quality: moderate, aching, pressure Location: central Radiation: arms, shoulders Prior CP/Workup: echocardiography, stress test Modifying Factors: improves with rest ASA po [employer]: No NTG SL [employer]: No Associated Symptoms: No abdominal pain, No dizziness, No nausea/vomiting, No shortness of breath, No weakness Allergies and Home Medications Allergies Coded Allergies: NKANo Known Allergies (Unverified Allergy, Mild, 04/27/09) Patient Home Medication List Home Medication List Reviewed: Yes Aspirin (Aspirin) 81 Mg Tab.chew, 81 MG PO DAILY Prescribed by: OLI CARVAJAL on 05/21/17 1237 Benzonatate (Tessalon Perles) 100 Mg Capsule, 200 MG PO TID Prescribed by: LÓPEZ CENTENO on 03/27/20 1523 Lisinopril (Lisinopril) 10 Mg Tablet, 10 MG PO DAILY Prescribed by: CIELO BASURTO on 03/31/18 0751 Metformin HCl (Metformin HCl ER) 500 Mg Tab.er.24h, 500 MG PO BID, (Reported) Entered as Reported by: ANGY KIRK on 02/29/162026 Review of Systems Review of Systems Constitutional: see HPI; No chills, No fever EENTM: No Symptoms Reported Respiratory: Denies Cough, Denies Shortness of Air Cardiovascular: Chest Pain, Irregular Heart Rate, Palpitations Gastrointestinal: Denies Nausea, Denies Vomiting Genitourinary: No Symptoms Reported Musculoskeletal: no symptoms reported Psychiatric/Neurological: No Symptoms Reported All Other Systems Reviewed Negative Unless Noted: Yes Past Djicoow-Siqppd-Opngpa Hx Patient Social History Tobacco Use?: No Substance use?: No Alcohol Use?: Yes Alcohol Frequency: Once in a while Pt feels they are or have been: No Immunizations Up To Date Tetanus Booster (TDap): Unknown Influenza Vaccine Up-to-Date: No; Not Current Seasonal Allergies Seasonal Allergies: No Past Medical History Surgeries: Yes Appendectomy, Tonsillectomy Respiratory: Yes Asthma, COPD Cardiac: Yes (SVT) High Cholesterol, Hypertension Neurological: Yes Neuropathy Sexually Transmitted Disease: No HIV/AIDS: No Genitourinary: No Gastrointestinal: No Musculoskeletal: Yes Chronic Back Pain Endocrine: Yes Diabetes, Insulin dep HEENT: No Tonsilitis Loss of Vision: Denies Hearing Impairment: Denies Cancer: No Psychosocial: Yes Anxiety, Depression Integumentary: No Blood Disorders: No Family Medical History Reviewed Nursing Family Hx No Pertinent Family Hx Physical Exam Vital Signs Vital Signs - First Documented 04/22/21 00:56 Temp 36.5 Pulse 174 Resp 22 B/P (MAP) 122/84 (97) Pulse Ox 98 Capillary Refill : Height, Weight, BMI Height: 6'3.00" Weight: 270lbs. 2.0oz. 122.922149qy; 33.00 BMI Method:Stated General Appearance: No Apparent Distress, WD/WN HEENT: PERRL/EOMI, Pharynx Normal Neck: Non Tender, Supple Respiratory: Lungs Clear, Normal Breath Sounds Cardiovascular: No Murmur, Tachycardia Gastrointestinal: Non Tender, Soft Extremity: Normal Range of Motion, Non Tender Neurologic/Psychiatric: Alert, Oriented x3 Skin: Normal Color, Warm/Dry Progress/Results/Core Measures Results/Orders Lab Results Laboratory Tests Test 04/22/21 01:05 04/22/21 03:08 Range/Units White Blood Count 8.8 4.3-11.0 10^3/uL Red Blood Count 5.38 4.30-5.52 10^6/uL Hemoglobin 15.3 13.3-17.7 g/dL Hematocrit 46 40-54 % Mean Corpuscular Volume 86 80-99 fL Mean Corpuscular Hemoglobin 28 25-34 pg Mean Corpuscular Hemoglobin Concent 33 32-36 g/dL Red Cell Distribution Width 13.8 10.0-14.5 % Platelet Count 286 130-400 10^3/uL Mean Platelet Volume 8.8 L 9.0-12.2 fL Immature Granulocyte % (Auto) 0 % Neutrophils (%) (Auto) 50 42-75 % Lymphocytes (%) (Auto) 39 12-44 % Monocytes (%) (Auto) 5 0-12 % Eosinophils (%) (Auto) 5 0-10 % Basophils (%) (Auto) 1 0-10 % Neutrophils # (Auto) 4.4 1.8-7.8 10^3/uL Lymphocytes # (Auto) 3.4 1.0-4.0 10^3/uL Monocytes # (Auto) 0.5 0.0-1.0 10^3/uL Eosinophils # (Auto) 0.4 H 0.0-0.3 10^3/uL Basophils # (Auto) 0.1 0.0-0.1 10^3/uL Immature Granulocyte # (Auto) 0.0 0.0-0.1 10^3/uL Prothrombin Time 12.7 12.2-14.7 SEC INR Comment 0.9 0.8-1.4 Activated Partial Thromboplast Time 27 24-35 SEC Sodium Level 141 135-145 MMOL/L Potassium Level 3.9 3.6-5.0 MMOL/L Chloride Level 107 98-107 MMOL/L Carbon Dioxide Level 21 21-32 MMOL/L Anion Gap 13 5-14 MMOL/L Blood Urea Nitrogen 21 H 7-18 MG/DL Creatinine 1.20 0.60-1.30 MG/DL Estimat Glomerular Filtration Rate 71 BUN/Creatinine Ratio 18 Glucose Level 129 H 70-105 MG/DL Calcium Level 9.6 8.5-10.1 MG/DL Corrected Calcium 9.6 8.5-10.1 MG/DL Magnesium Level 1.9 1.6-2.4 MG/DL Total Bilirubin 0.4 0.1-1.0 MG/DL Aspartate Amino Transf (AST/SGOT) 23 5-34 U/L Alanine Aminotransferase (ALT/SGPT) 33 0-55 U/L Alkaline Phosphatase 55 40-136 U/L Myoglobin 153.7 H 10.0-92.0 NG/ML Troponin I < 0.028 < 0.028 <0.028 NG/ML Total Protein 6.7 6.4-8.2 GM/DL Albumin 4.0 3.2-4.5 GM/DL My Orders Orders - HARMAN TRENT MD Cbc With Automated Diff (04/22/21 00:58) Magnesium (04/22/21 00:58) Chest 1 View, Ap/Pa Only (04/22/21 00:58) Ekg Tracing (04/22/21 00:58) Comprehensive Metabolic Panel (04/22/21 00:58) Myoglobin Serum (04/22/21 00:58) Protime With Inr (04/22/21 00:58) Partial Thromboplastin Time (04/22/21 00:58) O2 (04/22/21 00:58) Monitor-Rhythm Ecg Trace Only (04/22/21 00:58) Lipid Panel (04/23/21 06:00) Ed Iv/Invasive Line Start (04/22/21 00:58) Troponin I [place] Ramon (04/22/21 00:58) Adenosine Injection (Adenocard Injection (04/22/21 01:04) Adenosine Injection (Adenocard Injection (04/22/21 01:08) Metoprolol Tartrate Injection (Lopressor (04/22/21 01:15) Metoprolol Succinate (Xl) Tab (Toprol Xl (04/22/21 01:15) Ekg Tracing (04/22/21 01:15) Ekg Tracing (04/22/21 01:15) Aspirin Chewable Tablet (Baby Aspirin Ch (04/22/21 01:21) Troponin I [place] (04/22/21 03:02) Medications Given in ED Current Medications Medications Dose Ordered Sig/Reyna Route Start Time Stop Time Status Last Admin Dose Admin Adenosine 6 mg STK-MED ONCE IV 04/22/21 01:04 04/22/21 01:07 DC 04/22/21 01:27 6 MG Metoprolol Tartrate 5 mg ONCE ONCE IV 04/22/21 01:15 04/22/21 01:16 DC 04/22/21 01:27 5 MG Vital Signs/I&O 04/22/21 00:56 Temp 36.5 Pulse 174 Resp 22 B/P (MAP) 122/84 (97) Pulse Ox 98 Blood Pressure Mean: 97 Progress Progress Note : Progress Note Seen and evaluated shortly after arrival. Patient noted to be in SVT with rate of 177. Patient has history of SVT. IV, labs, EKG and chest x-ray ordered. We went ahead and move forward with adenosine therapy as patient has been in SVT for 2 hours and has history of success with this previously. Adenosine 6 mg IV given followed by rapid IV flush and arm elevation which did cause rhythm changed to sinus rhythm at 0101 as noted on EKG. We will give metoprolol 5 mg IV and Toprol-XL 50 mg p.o. and monitor patient. 0230: Labs reviewed. Troponin negative and he has remained in sinus rhythm and the rate about 80-90 while resting. We will recheck troponin at 2-hour benny. Patient remains comfortable without distress. 0342: Repeat troponin negative. Heart rate in the 70s doing well. We will continue outpatient metoprolol 25 mg twice daily and he will follow up with cardiology. He is previously seen Dr King so he will call his office tomorrow but I will give him information on all 3 prop setter. Discharged home with return precautions. Patient verbalized understanding of instructions and agreement with plan. Initial ECG Impression Date: Apr 22, 2021 Initial ECG Impression Time: 00:52 Initial ECG Rate: 170 Initial ECG Rhythm: SVT Comment Findings consistent with supraventricular tachycardia with normal axis. No evidence of ST elevation WI. Interpreted by me. EKG #1: EKG Time: 01:01 Rate: 78 Comment Conversion rhythm from sinus tachycardia to sinus rhythm at rate of 78. No evidence of ST elevation WI. Interpreted by me. EKG #2: EKG Time: 01:03 Rate: 90 Rhythm: Normal Sinus Comment Sinus rhythm with normal axis. No evidence of ST elevation [place]. Post conversion from SVT. Compared to 05/20/2017 with no significant changes. Interpreted by me. Diagnostic Imaging Diagonstic Imaging: Xray Plain Films/CT/US/NM/MRI: chest Comments No acute findings Reviewed: Reviewed by Me Departure Impression Primary Impression: SVT (supraventricular tachycardia) Disposition: 01 HOME, SELF-CARE Condition: Improved Departure-Patient Inst. Decision time for Depature: 03:43 Referrals: [facility]/ (PCP) Primary Care Physician KALPESH ARTEAGA (Family) Primary Care Physician BERTRAND KING MD FACP FACC CCDS SRAVANI DOMINGUEZ MD, DAVID L JR, MD Patient Instructions: Paroxysmal Supraventricular Tachycardia (DC) Add. Discharge Instructions: All discharge instructions reviewed with patient and/or family. Voiced understanding. Take medications as directed. Follow-up with Dr King or one of the prop setter listed this week for recheck and further evaluation. Call office in the morning for appointment. Follow-up with your doctor for recheck and further evaluation as well. Return for fast heart rate, chest pain, weakness, breathing problems or other concerns as needed. Scripts Metoprolol Tartrate (Metoprolol Tartrate) 25 Mg Tablet 25 MG PO BID, #60 TAB Prov: HARMAN TRENT MD 04/22/21 HARMAN TRENT MD Apr 22, 2021 02:55
[2021-04-22] MEDS ORDERED: METO-333 PO (03:44)
[2021-04-22 03:50] VITALS: BP 114/65
--- NOTE | 2021-04-22 05:46 | Diagnostic Imaging Report ---
INDICATION: Chest pain COMPARISON 03/27/2020 FINDINGS: Single view of the chest demonstrates clear lungs bilaterally. The heart is normal. There is no pneumothorax. The osseous structures are normal. IMPRESSION: Negative chest Dictated by: Dictated on workstation # [id number]
== END 2021-04-22 03:55 | disposition home or self-care (01) ==
LOC: EDUNIT# 00:54 → ER 00:56
DX: I47.1 Supraventricular tachycardia (principal); I10 Essential (primary) hypertension
CPT/HCPCS: 36415; 71045; 80053; 83735; 83874; 84484; 85025; 85610; 85730; 93005; 93041

== ENCOUNTER 2021-12-25 19:30 | Emergency (ER) | payer SELFPAY ==
[~2021-12-25] VITALS: Ht 191 cm; Wt 123.0 kg
[2021-12-25] MEDS ORDERED: RT-ALBUTEROL/IPRATROPIUM 3 ML (DUONEB) VIAL INH ONE (19:45)
--- NOTE | 2021-12-25 19:56 | ED Respiratory ---
General Chief Complaint: Respiratory Problems Stated Complaint: TROUBLE BREATHING Nursing Triage Note: INCREASING SOA X1 WEEK. WORSE X3-4 DAYS. OUT OF INHALER. PERSISTANT PRODUCTIVE COUGH. Source: patient Exam Limitations: no limitations (JOHNNY BACA APRN) History of Present Illness Date Seen by Provider: Dec 25, 2021 Time Seen by Provider: 19:45 Initial Comments Patient is a 56-year-old male who presents to the emergency department with approximately 1 week of shortness of air that has been worse over the last 3 to 4 days. Patient endorses a history of asthma/COPD for which she has a rescue inhaler. He states his rescue inhaler is empty and he has been without it for a few weeks. Denies any chest pain. States the shortness of air is worse with exertion. Denies any lower extremity swelling. No recent fever. States he does have a nonproductive cough. (JOHNNY BACA APRN) Allergies and Home Medications Allergies Coded Allergies: NKANo Known Allergies (Unverified Allergy, Mild, 04/27/09) Patient Home Medication List Home Medication List Reviewed: Yes (JOHNNY BACA APRN) Albuterol Sulfate (Ventolin Hfa) 1 Puff Puff, 2-4 PUFF INH Q4H PRN for WHEEZING Prescribed by: Johnny Baca on 12/25/212120 Aspirin (Aspirin) 81 Mg Tab.chew, 81 MG PO DAILY Prescribed by: OLI CARVAJAL on 05/21/17 1237 Benzonatate (Tessalon Perles) 100 Mg Capsule, 200 MG PO TID Prescribed by: LÓPEZ CENTENO on 03/27/20 1523 Lisinopril (Lisinopril) 10 Mg Tablet, 10 MG PO DAILY Prescribed by: CIELO BASURTO on 03/31/18 0751 Metformin HCl (Metformin HCl ER) 500 Mg Tab.er.24h, 500 MG PO BID, (Reported) Entered as Reported by: ANGY KIRK on 02/29/162026 Metoprolol Tartrate (Metoprolol Tartrate) 25 Mg Tablet, 25 MG PO BID Prescribed by: HARMAN TRENT on 04/22/21 0344 Prednisone (Prednisone) 20 Mg Tab, 40 MG PO DAILY Prescribed by: Johnny Baca on 12/25/212120 Review of Systems Review of Systems Constitutional: no symptoms reported EENTM: no symptoms reported Respiratory: see HPI, cough, short of breath, wheezing Cardiovascular: no symptoms reported Gastrointestinal: no symptoms reported Genitourinary: no symptoms reported Musculoskeletal: no symptoms reported (JOHNNY BACA APRN) Past Butkgkl-Etaysn-Iaxhkl Hx Patient Social History Tobacco Use?: No Smoking Status: Former Smoker Alcohol Use?: No Pt feels they are or have been: No (JOHNNY BACA APRN) Immunizations Up To Date Tetanus Booster (TDap): Unknown First/Initial COVID19 Vaccinat: NA (JOHNNY BACA APRN) Seasonal Allergies Seasonal Allergies: No (JOHNNY BACA APRN) Past Medical History Surgery/Hospitalization HX: COPD, ASTHMA, SVT, HTN, PERIPHERIAL NEUROPATHY, HTN, HIGH CHOLESTEROL, CH. BACK PAIN, ANXIETY, DEPRESSION Surgeries: Yes Appendectomy, Tonsillectomy Respiratory: Yes Asthma, COPD Cardiac: Yes (SVT) High Cholesterol, Hypertension Neurological: Yes Neuropathy Sexually Transmitted Disease: No HIV/AIDS: No Genitourinary: No Gastrointestinal: No Musculoskeletal: Yes Chronic Back Pain Endocrine: Yes Diabetes, Insulin dep HEENT: No Tonsilitis Loss of Vision: Denies Hearing Impairment: Denies Cancer: No Psychosocial: Yes Anxiety, Depression Integumentary: No Blood Disorders: No (JOHNNY BACA APRN) Family Medical History No Pertinent Family Hx (JOHNNY BACA APRN) Physical Exam Vital Signs - First Documented 12/25/21 12/25/21 19:41 20:41 Temp 37.0 Pulse 116 Resp 20 B/P (MAP) 172/126 (141) Pulse Ox 95 O2 Delivery Room Air FiO2 21 (HAYLEYJANNETTE K DO) Capillary Refill : Less Than 3 Seconds (JOHNNY BACA APRN) Height: 6'3.00" Weight: 270lbs. 2.0oz. 122.902526lu; 33.00 BMI Method:Stated General Appearance: WD/WN, no apparent distress HEENT: PERRL/EOMI, normal ENT inspection, TMs normal, pharynx normal Neck: non-tender Respiratory: chest non-tender, no respiratory distress, wheezing, expiration Cardiovascular: regular rate, rhythm Gastrointestinal: normal bowel sounds, non tender, soft Extremities: normal range of motion, non-tender Neurologic/Psychiatric: no motor/sensory deficits, alert, normal mood/affect, oriented x 3 Skin: normal color, warm/dry (JOHNNY BACA APRN) Progress/Results/Core Measures Suspected Sepsis SIRS Temperature: Pulse: 116 Respiratory Rate: 20 Blood Pressure 172 /126 Mean: 141 (JOHNNY BACA APRN) Results/Orders Lab Results Laboratory Tests Test 12/25/21 20:10 Range/Units Influenza Type A (RT-PCR) Not Detected Not Detecte Influenza Type B (RT-PCR) Not Detected Not Detecte SARS-CoV-2 RNA (RT-PCR) Not Detected Not Detecte (JANNETTE HARDY DO) My Orders Orders - JANNETTE HARDY DO Chest 1 View, Ap/Pa Only (12/25/21 19:36) Covid 19 Inhouse Test (12/25/21 19:36) Influenza A And B By Pcr (12/25/21 19:36) Isolation Central Supply Req (12/25/21 19:36) (JANNETTE HARDY DO) Vital Signs/I&O 12/25/21 12/25/21 12/25/21 12/25/21 19:41 20:05 20:41 21:30 Temp 37.0 Pulse 116 96 Resp 20 B/P (MAP) 172/126 (141) 148/94 Pulse Ox 95 95 O2 Delivery Room Air Room Air Room Air Room Air FiO2 21 (JANNETTE HARDY DO) Vital Signs/I&O Capillary Refill : Less Than 3 Seconds (JOHNNY BACA APRN) Blood Pressure Mean: 141 Progress Note : Progress Note Patient is nontoxic and well-hydrated on exam. Vital signs are overall reassuring. No hypoxia or tachypnea noted. Expiratory wheezing appreciated without significant respiratory distress or accessory muscle use. Chest x-ray notable for hyperexpansion consistent with COPD but no acute findings and no changes from prior. Patient was given a DuoNeb with significant improvement in subjective work of breathing as well as an air movement when auscultated. He still does have a mild expiratory wheeze but this is improved from prior. Patient was also given a dose of prednisone will be discharged home with 4 additional days of the same. Patient was also given a prescription for albuterol inhaler. Discussed supportive care and anticipatory guidance. Follow-up with PCP closely. Return precautions for urgent symptomology discussed. Patient verbalized understanding. (JOHNNY BACA APRN) Departure Impression Primary Impression: COPD exacerbation Disposition: 01 HOME, SELF-CARE Condition: Improved Departure-Patient Inst. Decision time for Depature: 21:15 (JOHNNY BACA APRN) Referrals: [facility] (PCP/Family) Primary Care Physician Patient Instructions: COPD Exacerbation, Adult ED Scripts Prednisone (Prednisone) 20 Mg Tab 40 MG PO DAILY for 4 Days, #8 TAB 0 Refills Prov: JOHNNY BACA APRN 12/25/21 Albuterol Sulfate (VENTOLIN HFA) 1 Puff Puff 2-4 PUFF INH Q4H PRN for WHEEZING for 30 Days, #1 EA 1 Refill 1 PUFF = 90 MCG Prov: JOHNNY BACA APRN 12/25/21 ATTENDING PHYSICIAN NOTE: I WAS PHYSICALLY PRESENT ER PHYSICIAN, BUT I WAS NOT INVOLVED IN ANY DECISION MAKING OR ANY CARE OF THIS PATIENT AND I AM NOT COLLABORATING PHYSICIAN. (JANNETTE HARDY DO) JOHNNY BACA APRN Dec 25, 2021 19:56 JANNETTE HARDY DO Dec 30, 2021 08:23
--- NOTE | 2021-12-25 20:16 | Diagnostic Imaging Report ---
INDICATION: Dyspnea. Compared 04/22 FINDINGS: There is air trapping and COPD but no failure, effusion, or pneumothorax. No focal consolidation. IMPRESSION: Clear hyperexpanded lungs, stable from prior. Dictated by: Dictated on workstation # [id number]
[2021-12-25] MEDS ORDERED: RT-ALBUINH INH (21:21)
[2021-12-25] MEDS ORDERED: PRD20T PO (21:21)
[2021-12-25 21:30] VITALS: BP 148/94
[2021-12-25] MEDS ORDERED: predniSONE 20 MG TAB PO ONE (21:30)
== END 2021-12-25 21:30 | disposition home or self-care (01) ==
LOC: EDUNIT# 19:30 → ER 19:32
DX: J44.1 Chronic obstructive pulmonary disease with (acute) exacerbation (principal); E11.9 Type 2 diabetes mellitus without complications; Z79.4 Long term (current) use of insulin; Z87.891 Personal history of nicotine dependence; Z28.310 Unvaccinated for COVID-19; Z20.822 Contact with and (suspected) exposure to COVID-19
CPT/HCPCS: 71045; 87636; 93041; 94640

== ENCOUNTER 2022-01-05 17:54 | Emergency (ER) | payer SELFPAY ==
[~2022-01-05] VITALS: Ht 190.5 cm; Wt 127.0 kg
[~2022-01-05 17:54] MED LIST changes: +PRD20T PO; +RT-ALBUINH INH
--- NOTE | 2022-01-05 18:04 | ED General ---
General Stated Complaint: COUGH/FEVER History of Present Illness Date Seen by Provider: Jan 05, 2022 Time Seen by Provider: 18:04 Initial Comments 56-year-old male with PMH of HTN/DM 2/COPD/non-smoker at present, is here with complaints of a constant cough which began yesterday, and has been causing bilateral lower rib cage pain. Patient states that he has associated congestion and intermittent SOB at home controlled by his inhaler. In the ER patient is diaphoretic and is holding both sides of his chest. Patient does not know if he has fever. Denies actual chest pain, chills, nausea vomiting, abdominal pain, palpitations, dizziness, headache. No known sick contacts. Patient states that he is compliant with medications. Patient also states that he takes lisinopril for his blood pressure. Allergies and Home Medications Allergies Coded Allergies: Kalpana Known Allergies (Unverified Allergy, Mild, 04/27/09) Patient Home Medication List Home Medication List Reviewed: Yes Albuterol Sulfate (Ventolin Hfa) 1 Puff Puff, 2-4 PUFF INH Q4H PRN for WHEEZING Prescribed by: Johnny Baca on 12/25/212120 Aspirin (Aspirin) 81 Mg Tab.chew, 81 MG PO DAILY Prescribed by: OLI CARVAJAL on 05/21/17 1237 Benzonatate (Tessalon Perles) 100 Mg Capsule, 200 MG PO TID Prescribed by: LÓPEZ CENTENO on 03/27/20 1523 Lisinopril (Lisinopril) 10 Mg Tablet, 10 MG PO DAILY Prescribed by: CIELO BASURTO on 03/31/18 0751 Metformin HCl (Metformin HCl ER) 500 Mg Tab.er.24h, 500 MG PO BID, (Reported) Entered as Reported by: ANGY KIRK on 02/29/162026 Metoprolol Tartrate (Metoprolol Tartrate) 25 Mg Tablet, 25 MG PO BID Prescribed by: HARMAN TRENT on 04/22/21 0344 Prednisone (Prednisone) 20 Mg Tab, 40 MG PO DAILY Prescribed by: Johnny Baca on 12/25/212120 Review of Systems Review of Systems Constitutional: see HPI, diaphoresis EENTM: nose congestion Respiratory: cough Cardiovascular: no symptoms reported Gastrointestinal: no symptoms reported Genitourinary: no symptoms reported Musculoskeletal: no symptoms reported Skin: no symptoms reported Psychiatric/Neurological: No Symptoms Reported Hematologic/Lymphatic: No Symptoms Reported Immunological/Allergic: no symptoms reported Past Pkoxxtu-Wdujhm-Puphpb Hx Immunizations Up To Date Tetanus Booster (TDap): Unknown First/Initial COVID19 Vaccinat: NA Seasonal Allergies Seasonal Allergies: No Past Medical History Surgery/Hospitalization HX: COPD, ASTHMA, SVT, HTN, PERIPHERIAL NEUROPATHY, HTN, HIGH CHOLESTEROL, CH. BACK PAIN, ANXIETY, DEPRESSION Surgeries: Yes Appendectomy, Tonsillectomy Respiratory: Yes Asthma, COPD Cardiac: Yes (SVT) High Cholesterol, Hypertension Neurological: Yes Neuropathy Sexually Transmitted Disease: No HIV/AIDS: No Genitourinary: No Gastrointestinal: No Musculoskeletal: Yes Chronic Back Pain Endocrine: Yes Diabetes, Insulin dep HEENT: No Tonsilitis Loss of Vision: Denies Hearing Impairment: Denies Cancer: No Psychosocial: Yes Anxiety, Depression Integumentary: No Blood Disorders: No Family Medical History No Pertinent Family Hx Physical Exam Vital Signs Vital Signs - First Documented 01/05/22 18:00 Temp 37.4 Pulse 96 B/P (MAP) 146/96 (113) Pulse Ox 98 O2 Delivery Room Air Capillary Refill : Height, Weight, BMI Height: 6'3.00" Weight: 270lbs. 2.0oz. 122.262119dt; 33.00 BMI Method:Stated General Appearance: Anxious, Mild Distress HEENT: PERRL/EOMI, Normal ENT Inspection, Pharynx Normal Neck: Full Range of Motion, Normal Inspection, Non Tender Respiratory: Chest Non Tender, No Accessory Muscle Use, No Respiratory Distress, Wheezing (occassional expiratory wheeze, otherwise clear) Cardiovascular: Regular Rate, Rhythm, No Edema, No Murmur Gastrointestinal: Normal Bowel Sounds, Non Tender, Soft Back: No CVA Tenderness Extremity: Normal Range of Motion Neurologic/Psychiatric: Alert, Oriented x3, No Motor/Sensory Deficits, Normal Mood/Affect Skin: Normal Color, Diaphoresis Lymphatic: No Adenopathy Focused Exam Lactate Level 01/05/22 18:23: Lactic Acid Level 1.91 Lactic Acid Level Laboratory Tests Test 01/05/22 18:23 Lactic Acid Level 1.91 MMOL/L (0.50-2.00) Progress/Results/Core Measures Suspected Sepsis SIRS Temperature: Pulse: Respiratory Rate: Laboratory Tests 01/05/22 18:23: White Blood Count 13.6H Blood Pressure / Mean: 01/05/22 18:23: Lactic Acid Level 1.91 Laboratory Tests 01/05/22 18:23: Creatinine 1.81H, INR Comment 1.0, Platelet Count 235, Total Bilirubin 0.5 Results/Orders Lab Results Laboratory Tests Test 01/05/22 18:17 01/05/22 18:23 01/05/22 18:40 Range/Units Influenza Type A (RT-PCR) Detected H Not Detecte Influenza Type B (RT-PCR) Not Detected Not Detecte SARS-CoV-2 RNA (RT-PCR) Not Detected Not Detecte Group A Streptococcus Screen NEGATIVE NEGATIVE White Blood Count 13.6 H 4.3-11.0 10^3/uL Red Blood Count 5.51 4.30-5.52 10^6/uL Hemoglobin 15.8 13.3-17.7 g/dL Hematocrit 46 40-54 % Mean Corpuscular Volume 84 80-99 fL Mean Corpuscular Hemoglobin 29 25-34 pg Mean Corpuscular Hemoglobin Concent 34 32-36 g/dL Red Cell Distribution Width 13.3 10.0-14.5 % Platelet Count 235 130-400 10^3/uL Mean Platelet Volume 9.3 9.0-12.2 fL Immature Granulocyte % (Auto) 1 % Neutrophils (%) (Auto) 77 H 42-75 % Lymphocytes (%) (Auto) 9 L 12-44 % Monocytes (%) (Auto) 12 0-12 % Eosinophils (%) (Auto) 1 0-10 % Basophils (%) (Auto) 0 0-10 % Neutrophils # (Auto) 10.5 H 1.8-7.8 10^3/uL Lymphocytes # (Auto) 1.2 1.0-4.0 10^3/uL Monocytes # (Auto) 1.6 H 0.0-1.0 10^3/uL Eosinophils # (Auto) 0.1 0.0-0.3 10^3/uL Basophils # (Auto) 0.1 0.0-0.1 10^3/uL Immature Granulocyte # (Auto) 0.1 0.0-0.1 10^3/uL Prothrombin Time 13.6 12.2-14.7 SEC INR Comment 1.0 0.8-1.4 Activated Partial Thromboplast Time 32 24-35 SEC D-Dimer 0.34 0.00-0.49 UG/ML Sodium Level 132 L 135-145 MMOL/L Potassium Level 4.0 3.6-5.0 MMOL/L Chloride Level 98 98-107 MMOL/L Carbon Dioxide Level 19 L 21-32 MMOL/L Anion Gap 15 H 5-14 MMOL/L Blood Urea Nitrogen 15 7-18 MG/DL Creatinine 1.81 H 0.60-1.30 MG/DL Estimat Glomerular Filtration Rate 43 BUN/Creatinine Ratio 8 Glucose Level 108 H 70-105 MG/DL Lactic Acid Level 1.91 0.50-2.00 MMOL/L Calcium Level 9.4 8.5-10.1 MG/DL Corrected Calcium 9.3 8.5-10.1 MG/DL Magnesium Level 1.8 1.6-2.4 MG/DL Total Bilirubin 0.5 0.1-1.0 MG/DL Aspartate Amino Transf (AST/SGOT) 27 5-34 U/L Alanine Aminotransferase (ALT/SGPT) 35 0-55 U/L Alkaline Phosphatase 70 40-136 U/L Troponin I < 0.028 <0.028 NG/ML B-Type Natriuretic Peptide < 10.0 <100.0 PG/ML Total Protein 8.0 6.4-8.2 GM/DL Albumin 4.1 3.2-4.5 GM/DL Procalcitonin 0.40 H <0.10 NG/ML Urine Color YELLOW Urine Clarity CLEAR Urine pH 5.5 5-9 Urine Specific [place] 1.015 L 1.016-1.022 Urine Protein NEGATIVE NEGATIVE Urine Glucose (UA) NEGATIVE NEGATIVE Urine Ketones NEGATIVE NEGATIVE Urine Nitrite NEGATIVE NEGATIVE Urine Bilirubin NEGATIVE NEGATIVE Urine Urobilinogen 0.2 < = 1.0 MG/DL Urine Leukocyte Esterase TRACE H NEGATIVE Urine RBC (Auto) NEGATIVE NEGATIVE Urine RBC NONE /HPF Urine WBC 0-2 /HPF Urine Squamous Epithelial Cells 0-2 /HPF Urine Crystals NONE /LPF Urine Bacteria TRACE /HPF Urine Casts NONE /LPF Urine Mucus NEGATIVE /LPF Urine Culture Indicated NO Urine Opiates Screen NEGATIVE NEGATIVE Urine Oxycodone Screen NEGATIVE NEGATIVE Urine Methadone Screen NEGATIVE NEGATIVE Urine Propoxyphene Screen NEGATIVE NEGATIVE Urine Barbiturates Screen NEGATIVE NEGATIVE Ur Tricyclic Antidepressants Screen NEGATIVE NEGATIVE Urine Phencyclidine Screen NEGATIVE NEGATIVE Urine Amphetamines Screen POSITIVE H NEGATIVE Urine Methamphetamines Screen POSITIVE H NEGATIVE Urine Benzodiazepines Screen POSITIVE H NEGATIVE Urine Cocaine Screen NEGATIVE NEGATIVE Urine Cannabinoids Screen POSITIVE H NEGATIVE My Orders Orders - SAVANNAH NIETO MD Covid 19 Inhouse Test (01/05/22 18:04) Influenza A And B By Pcr (01/05/22 18:04) Rapid Strep A Screen (01/05/22 18:04) Bnp Juan Ramon (01/05/22 18:14) Cbc With Automated Diff (01/05/22 18:14) Comprehensive Metabolic Panel (01/05/22 18:14) Fibrin Degradation Products (01/05/22 18:14) Drug Screen Stat (Urine) (01/05/22 18:14) Lactic Acid Analyzer (01/05/22 18:14) Magnesium (01/05/22 18:14) Procalcitonin (Pct) (01/05/22 18:14) Protime With Inr (01/05/22 18:14) Partial Thromboplastin Time (01/05/22 18:14) Ua Culture If Indicated (01/05/22 18:14) Troponin I Juan Ramon (01/05/22 18:14) Chest 1 View, Ap/Pa Only (01/05/22 18:15) Continuous Ekg Monitoring (01/05/22 18:15) Ekg Tracing (01/05/22 18:15) Rx-Oseltamivir Caps (Rx-Tamiflu Caps) (01/05/22 20:35) Ketorolac Injection (Toradol Injection) (01/05/22 20:45) Benzonatate Capsule (Tessalon Perles) (01/05/22 20:36) Vital Signs/I&O 01/05/22 18:00 Temp 37.4 Pulse 96 B/P (MAP) 146/96 (113) Pulse Ox 98 O2 Delivery Room Air Capillary Refill : Progress Note : Progress Note 1. INFLUENZA A: - CXR: unremarkable - COVID test/ Rapid flu test/ Rapid strep test:Influenza A positive - CBC/ CMP:unremarkable - EKG/ Troponin: non-ischemic -Vitals stable in the ER. -Advised patient to stay hydrated, Tessalon Perle prescription 3 times daily as needed cough, Tylenol or ibuprofen as needed for body pain and fever, Tamiflu prescription twice daily for 5 days since patient's symptoms only started within the past 24 hours. -Follow-up with PCP within the next 3 to 7 days -The patient was seen in the ED, and treated appropriately to presentation at a specific point in time. Patient is informed that there is a possibility that disease and illness can evolve and change in acuity rapidly or slowly after patient is discharged from the ER. Precautionary advice given to the patient for immediate return to ER if symptoms worsen or do not resolve, and to seek emergency care sooner rather than later. Pt also advised on the importance of PCP follow up and compliance with management and follow up plan with PCP and/or specialist, as this is part of the management plan. Pt verbally expressed understanding. ECG Initial ECG Impression Date: Jan 05, 2022 Initial ECG Impression Time: 18:26 Initial ECG Rate: 89 Initial ECG Rhythm: Normal Sinus Initial ECG Intervals: Normal Initial ECG Impression: Normal Initial ECG Comparisson: No Previous ECG Available Diagnostic Imaging Diagonstic Imaging: Xray Plain Films/CT/US/NM/MRI: chest Comments [facility], [place] NAME: ROCÍO ARMSTRONG [facility] REC#: [id number] PT STATUS: REG ER : 1965 PHYSICIAN: SAVANNAH NIETO MD ADMIT DATE: 01/05/22/ER Signed Date of Exam:01/05/22 CHEST 1 VIEW, AP/PA ONLY EXAMINATION: Chest 1 view. HISTORY: Cough. Chest pain. COMPARISON: 12/25/2021. FINDINGS: The lung volumes are normal. No focal consolidation is seen. No large pleural effusion or pneumothorax is seen. The cardiomediastinal silhouette is normal in size and contour. No acute osseous abnormality is seen. IMPRESSION: No acute pleuroparenchymal process. Dictated by: Dictated on workstation # [id number] Dict: 01/05/221831 Trans: 01/05/221839 [facility] [id number] Interpreted by: KENTON VILLALOBOS DO Electronically signed by: KENTON VILLALOBOS DO 01/05/221839 Departure Impression Primary Impression: Influenza A Disposition: 01 HOME, SELF-CARE Condition: Stable Departure-Patient Inst. Referrals: [facility] (PCP/Family) Primary Care Physician Patient Instructions: Flu, Adult (DC) Add. Discharge Instructions: -Advised patient to stay hydrated, Tessalon Perle prescription 3 times daily as needed cough, Tylenol or ibuprofen as needed for body pain and fever, Tamiflu prescription twice daily for 5 days since patient's symptoms only started within the past 24 hours. -Follow-up with PCP within the next 3 to 7 days Scripts Benzonatate (TESSALON PERLES) 100 Mg Capsule 100 MG PO TID PRN for cough for 5 Days, #10 CAP Prov: SAVANNAH NIETO MD 01/05/22 SAVANNAH NIETO MD Jan 05, 2022 18:04
[2022-01-05 18:31] LABS: BASOPHILS # (AUTO) 0.1 10^3/uL (0.0-0.1); BASOPHILS % (AUTO) 0 % (0-10); EOSINOPHILS # (AUTO) 0.1 10^3/uL (0.0-0.3); EOSINOPHILS % (AUTO) 1 % (0-10); HEMATOCRIT 46 % (40-54); HEMOGLOBIN 15.8 g/dL (13.3-17.7); LYMPHOCYTES # (AUTO) 1.2 10^3/uL (1.0-4.0); LYMPHOCYTES % (AUTO) 9 % (12-44); MEAN CORPUSCULAR HEMOGLOBIN 29 pg (25-34); MEAN CORPUSCULAR HGB CONC 34 g/dL (32-36); MEAN CORPUSCULAR VOLUME 84 fL (80-99); MEAN PLATELET VOLUME 9.3 fL (9.0-12.2); MONOCYTES # (AUTO) 1.6 10^3/uL (0.0-1.0); MONOCYTES % (AUTO) 12 % (0-12); NEUTROPHILS # (AUTO) 10.5 10^3/uL (1.8-7.8); NEUTROPHILS % (AUTO) 77 % (42-75); PLATELET COUNT 235 10^3/uL (130-400); WHITE BLOOD COUNT 13.6 10^3/uL (4.3-11.0)
--- NOTE | 2022-01-05 18:39 | Diagnostic Imaging Report ---
EXAMINATION: Chest 1 view. HISTORY: Cough. Chest pain. COMPARISON: 12/25/2021. FINDINGS: The lung volumes are normal. No focal consolidation is seen. No large pleural effusion or pneumothorax is seen. The cardiomediastinal silhouette is normal in size and contour. No acute osseous abnormality is seen. IMPRESSION: No acute pleuroparenchymal process. Dictated by: Dictated on workstation # [id number]
[2022-01-05 18:47] LABS: BILIRUBIN,URINE NEGATIVE (NEGATIVE); CLARITY,URINE CLEAR; COLOR,URINE YELLOW; GLUCOSE, URINE (UA) NEGATIVE (NEGATIVE); KETONES,URINE NEGATIVE (NEGATIVE); LEUKOCYTE ESTERASE ,URINE TRACE (NEGATIVE); NITRITE,URINE NEGATIVE (NEGATIVE); PH,URINE 5.5 (5-9); PROTEIN,URINE NEGATIVE (NEGATIVE)
[2022-01-05 18:52] LABS: ALANINE AMINOTRANSFERASE 35 U/L (0-55); ALBUMIN 4.1 GM/DL (3.2-4.5); ALKALINE PHOSPHATASE 70 U/L (40-136); BILIRUBIN,TOTAL 0.5 MG/DL (0.1-1.0); BUN/CREATININE RATIO 8; CALCIUM 9.4 MG/DL (8.5-10.1); CARBON DIOXIDE 19 MMOL/L (21-32); CHLORIDE 98 MMOL/L (98-107); CREATININE SERUM 1.81 MG/DL (0.60-1.30); GFR ESTIMATED 43; GLUCOSE 108 MG/DL (70-105); MAGNESIUM 1.8 MG/DL (1.6-2.4); SODIUM 132 MMOL/L (135-145)
[2022-01-05 18:52] LABS: BACTERIA,URINE TRACE /HPF; SQUAMOUS EPITHELIAL CELL,UR 0-2 /HPF; WBC,URINE 0-2 /HPF
[2022-01-05 18:54] LABS: FIBRIN DEGRADATION PRODUCTS 0.34 UG/ML (0.00-0.49); PROTHROMBIN TIME PATIENT 13.6 SEC (12.2-14.7)
[2022-01-05 19:02] LABS: AMPHETAMINE SCREEN, URINE POSITIVE (NEGATIVE); BARBITURATE SCREEN URINE NEGATIVE (NEGATIVE); BENZODIAZEPINES SCREEN URINE POSITIVE (NEGATIVE); CANNABINOID SCREEN, URINE POSITIVE (NEGATIVE); COCAINE SCREEN URINE NEGATIVE (NEGATIVE); METHADONE STAT NEGATIVE (NEGATIVE); OPIATE SCREEN URINE NEGATIVE (NEGATIVE); OXYCODONE STAT NEGATIVE (NEGATIVE); PROPOXYPHENE STAT NEGATIVE (NEGATIVE); TRICYCLIC ANTIDEPRESSANTS SCRE NEGATIVE (NEGATIVE)
[2022-01-05] MEDS ORDERED: RX-OSELTAMIVIR 75 MG (TAMIFLU) BOX OF 10 PO STA (20:35)
[2022-01-05] MEDS ORDERED: BENZONATATE 100 MG (TESSALON) CAPSULE PO STA (20:36)
[2022-01-05] MEDS ORDERED: KETOROLAC 30 MG/ML VIAL IVP ONE (20:45)
[2022-01-05] MEDS ORDERED: BENZ100C18 PO (20:47)
[2022-01-05 20:56] VITALS: BP 115/60
== END 2022-01-05 20:55 | disposition home or self-care (01) ==
LOC: EDUNIT# 17:54 → ER 17:57
DX: J10.1 Influenza due to other identified influenza virus with other respiratory manifestations (principal); J44.9 Chronic obstructive pulmonary disease, unspecified; Z20.822 Contact with and (suspected) exposure to COVID-19; Z28.310 Unvaccinated for COVID-19
CPT/HCPCS: 36415; 71045; 80053; 80306; 81000; 83605; 83735; 83880; 84145; 84484; 85025; 85379; 85610; 85730; 87430; 87636; 93005

== ENCOUNTER → 2022-04-28 | Outpatient (CLI) | payer MEDICAID ==
[~2022-04-28] MED LIST changes: +RT-ALBUTEROL SULF 2.5 MG/3 ML PRE-MIX VIAL INH ONE
== END ==
LOC: RT 15:52
PROVIDERS: ATTEND Nurse Practitioner Family
DX: J44.9 Chronic obstructive pulmonary disease, unspecified (principal)
CPT/HCPCS: 94060; 94726; 94729

== ENCOUNTER 2022-06-20 13:14 | Outpatient (CLI) | payer MEDICAID ==
[~2022-06-20 13:14] MED LIST changes: -RT-ALBUTEROL SULF 2.5 MG/3 ML PRE-MIX VIAL INH ONE
== END 2022-06-20 13:33 ==
LOC: SLEEP 13:14
PROVIDERS: ATTEND Nurse Practitioner Family
DX: G47.36 Sleep related hypoventilation in conditions classified elsewhere (principal); G47.9 Sleep disorder, unspecified
CPT/HCPCS: G0399